=== PATIENT | male | born 1955 | race Hispanic/Latino ===

== ENCOUNTER 2018-07-15 13:23 | Inpatient (IN) | payer BC ==
[2018-07-15 13:41] VITALS: BMI 26.4
--- NOTE | 2018-07-15 13:56 | ED PDOC ---
Arrival/HPI <Omar Castro - Last Filed: 07/15/18 16:26> - General Historian: Patient - History of Present Illness Narrative History of Present Illness (Text): 07/15/18 13:49 63 y/o male, pmh including cad with cabg/ and chronic lower back pain on oxycodone, nkda, presents to the ED for evaluation of bilateral lower extremity swelling since past few days. Patient informs unchanged symptoms since onset, chronic lower back pain with no worsening pain or change in severity/characteristic, prompting him to present to the ED because of the bilateral leg swelling. Patient informs chronic lower back pain but denies any new injury or fall. Patient denies any fever, chills, nausea, vomiting, abdominal pain, chest pain, shortness of breath or any other complaints. Patient denies any recent travel. Time/Duration: < week Symptom Onset: Gradual Symptom Course: Unchanged Activities at Onset: Light Context: Home <Andreas Nobles - Last Filed: 07/15/18 18:18> - General Chief Complaint: Back Pain Time Seen by Provider: 07/15/18 13:48 Past Medical History - Provider Review Nursing Documentation Reviewed: Yes - Infectious Disease Hx of Infectious Diseases: None - Cardiac Hx Cardiac Disorders: Yes (LA x2, CABG five vessels) Hx Angina: Yes - Pulmonary Hx Respiratory Disorders: Yes (Smokes 1 1/2pack cigarettes /day) - Neurological Hx Neurological Disorder: Yes (Brain aneurysm) - HEENT Hx HEENT Disorder: Yes (deviated septum) - Renal Hx Renal Disorder: No - Endocrine/Metabolic Hx Endocrine Disorders: No - Hematological/Oncological Hx Blood Disorders: No - Integumentary Hx Dermatological Disorder: No - Musculoskeletal/Rheumatological Hx Musculoskeletal Disorders: Yes Hx Arthritis: Yes Hx Back Pain: Yes Hx Fractures: Yes (nose) - Gastrointestinal Hx Gastrointestinal Disorders: No - Genitourinary/Gynecological Hx Genitourinary Disorders: No - Psychiatric Hx Psychophysiologic Disorder: Yes (night terrors. Patient screams in his sleep.) Hx Anxiety: Yes Hx Depression: Yes Hx Substance Use: No - Surgical History Hx Open Heart Surgery: Yes (CABG) <Andreas Nobles - Last Filed: 07/15/18 18:18> Family/Social History - Physician Review Nursing Documentation Reviewed: Yes Family/Social History: No Known Family HX Smoking Status: Heavy Smoker > 10 Cigarettes Daily Hx Alcohol Use: No Hx Substance Use: No <Andreas Nobles - Last Filed: 07/15/18 18:18> Allergies/Home Meds <Omar Castro - Last Filed: 07/15/18 16:26> <Andreas Nobles - Last Filed: 07/15/18 18:18> Allergies/Adverse Reactions: Allergies No Known Allergies Allergy (Verified 07/15/18 13:41) Home Medications: Home Meds Medication Instructions Recorded Confirmed Oxycodone HCl [Oxycodone HCl ER] 1 tab PO TID 07/15/18 07/15/18 Review of Systems - Physician Review All systems were reviewed & negative as marked: Yes - Review of Systems Constitutional: absent: Fevers Eyes: absent: Vision Changes Respiratory: absent: SOB, Cough Cardiovascular: Edema (Bilateral lower extremity swelling). absent: Chest Pain Gastrointestinal: absent: Abdominal Pain, Diarrhea, Nausea, Vomiting Genitourinary Male: absent: Dysuria, Hematuria, Urinary Output Changes Musculoskeletal: Back Pain (chronic lower back pain). absent: Neck Pain Skin: absent: Rash Neurological: absent: Headache, Dizziness Endocrine: absent: Diaphoresis Psychiatric: absent: Anxiety <Andreas Nobles - Last Filed: 07/15/18 18:18> Physical Exam Vital Signs Temp Pulse Resp BP Pulse Ox 07/15/18 15:35 79 18 118/65 96 07/15/18 13:39 98.5 F 86 19 116/66 95 <Omar Castro - Last Filed: 07/15/18 16:26> Vital Signs Reviewed: Yes Vital Signs Temp Pulse Resp BP Pulse Ox 07/15/18 13:39 98.5 F 86 19 116/66 95 Temperature: Afebrile Blood Pressure: Normal Pulse: Regular Respiratory Rate: Normal Appearance: Positive for: Well-Appearing, Non-Toxic, Comfortable Pain Distress: Mild Mental Status: Positive for: Alert and Oriented X 3 - Systems Exam Head: Present: Atraumatic, Normocephalic Pupils: Present: PERRL Extroacular Muscles: Present: EOMI Conjunctiva: Present: Normal Ears: Present: NORMAL TM, Normal Canal. No: Erythema Respiratory/Chest: Present: Clear to Auscultation, Good Air Exchange. No: Respiratory Distress, Accessory Muscle Use Cardiovascular: Present: Regular Rate and Rhythm, Normal S1, S2. No: Murmurs Abdomen: No: Tenderness, Distention, Peritoneal Signs, Rebound, Guarding Genitourinary Male: Present: Circumcised Penis. No: Lesions, Penile Discharge, Testicle Tenderness Back: Present: Normal Inspection, Paraspinal Tenderness (lumbar spine). No: CVA Tenderness, Midline Tenderness, Pain with Leg Raise, Decubitus Ulcer Upper Extremity: Present: Normal Inspection. No: Cyanosis, Edema Lower Extremity: Present: Edema (3+ pitting edema bilaterally from the knee joints down. No skin discoloration.) Neurological: Present: GCS=15, CN II-XII Intact, Speech Normal, Motor Func Grossly Intact, Memory Normal Skin: Present: Warm, Dry, Normal Color. No: Rashes Psychiatric: Present: Alert, Oriented x 3, Normal Insight, Normal Concentration <Andreas Nobles Q - Last Filed: 07/15/18 18:18> Medical Decision Making - Lab Interpretations Lab Results: PT 38.8 SECONDS (9.4-12.5) H 07/15/18 15:30 INR 3.32 07/15/18 15:30 APTT 30.6 Seconds (25.1-36.5) 07/15/18 15:30 NT-Pro-B Natriuret Pep 12367 pg/mL (0-450) H 07/15/18 15:30 Total Bilirubin 2.2 mg/dL (0.2-1.3) H 07/15/18 15:30 Alkaline Phosphatase 91 U/L (38-126) 07/15/18 15:30 Total Protein 7.3 g/dL (5.8-8.3) 07/15/18 15:30 Albumin 3.9 g/dL (3.0-4.8) 07/15/18 15:30 Globulin 3.4 gm/dL 07/15/18 15:30 Albumin/Globulin Ratio 1.2 (1.1-1.8) 07/15/18 15:30 - RAD Interpretation Radiology Orders: 07/15/18 13:56 CHEST TWO VIEWS (PA/LAT) [RAD] Stat DUPLEX LOWER EXTRM VEIN BILAT [US] Stat 07/15/18 14:21 LS SPINE WITH OBL > 18 YRS OLD [RAD] Stat - Medication Orders Current Medication Orders: Furosemide (Lasix) 40 mg IVP STAT STA Stop: 07/15/18 16:25 <Omar Castro - Last Filed: 07/15/18 16:26> ED Course and Treatment: 07/15/18 13:56 Impression: 63 year old male presents to the ED for evaluation of bilateral lower extremity edema. Differential Diagnosis included but are not limited to: DVT vs. CHF vs. Organ failure Plan: -- EKG -- Labs -- Chest X-ray -- Urinalysis -- US of Lower Extremity -- Reassess and disposition 07/15/18 16:58 -EKG: NSR @ 87 BPM with LBBB and left axis deviation, no ST elevation or depression, no T wave inversion. -Chest xray: ER wet read: no active disease -LS spine: ER wet read: +DJD, No acute findings -Bilateral LE Venuous doppler: as per preliminary report, no acute DVT -Labs show no acute findings except BUN 71/creatinine 1.5/GFR 48, K+ 5.4 from 4.1 (Kayaxylate 15gm po ordered) -AST 4606 and ALT 3345 (liver failure causing pedal edema?), ammonia 22 (within normal limit). -BNP 41401 (Furosemide 40mg IV ordered) -Trop 0.13 (aspirin 325mg po, ekg confirmed with Dr. Castro show there is no STEMI but there is left axis deviation with LBBB, pt. has no chest pain or shortness of breath, recommend 0.5in nitro paste by Dr Castro since the BP is 118/65). -I called and spoke to Dr. Li, discussed about the case/labs, agreed to request Dr. Hill and Dr. Deshaun Rizo on the routine consults. - Lab Interpretations I have reviewed the lab results: Yes - RAD Interpretation Radiology Orders: Chest xray: Date of service: 07/15/2018 HISTORY: leg edema, cadiomegally? COMPARISON: 06/02/2015 TECHNIQUE: Chest PA and lateral FINDINGS: LUNGS: No active pulmonary disease. PLEURA: No significant pleural effusion identified. No pneumothorax apparent. CARDIOVASCULAR: No aortic atherosclerotic calcification present. Mild cardiomegaly no pulmonary vascular congestion. OSSEOUS STRUCTURES: Sternal wires VISUALIZED UPPER ABDOMEN: Normal. OTHER FINDINGS: None. IMPRESSION: No active disease. LS Spine: Date of service: 07/15/2018 PROCEDURE: Radiographs of the Lumbar Spine. HISTORY: chronic lower back pain COMPARISON: No prior. FINDINGS: BONES: Normal alignment. No listhesis. No fracture. DISC SPACES: There is disc degeneration and facet arthropathy at L5-S1 OTHER FINDINGS: None. IMPRESSION: No acute findings -Bilateral LE Venuous doppler: as per preliminary report, no acute DVT Teacher Dancing: Radiologist - EKG Interpretation EKG Interpretation (Text): 07/15/18 14:52 EKG: NSR @ 87 BPM with LBBB and left axis deviation, no ST elevation or depression, no T wave inversion. Interpreted by ED Physician: Yes Type: 12 lead EKG Comparison: Com.w/previous EKG <Andreas Nobles - Last Filed: 07/15/18 18:18> - PA / TRAFFIC CONTROL OPERATOR / Resident Statement FRANTZ has examined the patient and agrees with the treatment plan. <Omar Castro - Last Filed: 07/15/18 16:26> - PA / TRAFFIC CONTROL OPERATOR / Resident Statement FRANTZ has reviewed & agrees with the documentation as recorded. MD/DO has examined the patient and agrees with the treatment plan. - Scribe Statement The provider has reviewed the documentation as recorded by the Julianaibe Yenifer Rogers. All medical record entries made by the Scribe were at my direction and personally dictated by me. I have reviewed the chart and agree that the record accurately reflects my personal performance of the history, physical exam, medical decision making, and the department course for this patient. I have also personally directed, reviewed, and agree with the discharge instructions and disposition. <Andreas Nobles - Last Filed: 07/15/18 18:18> Disposition/Present on Arrival <Omar Castro - Last Filed: 07/15/18 16:26> - Present on Arrival Any Indicators Present on Arrival: No History of DVT/PE: No History of Uncontrolled Diabetes: No Urinary Catheter: No History of Decub. Ulcer: No History Surgical Site Infection Following: None - Disposition Have Diagnosis and Disposition been Completed?: Yes Disposition Time: 17:01 Patient Plan: Admission, Telemetry <Andreas Nobles - Last Filed: 07/15/18 18:18> - Disposition Diagnosis: Transaminitis, Hyperkalemia, Elevated troponin, Elevated brain natriuretic peptide (BNP) level, CHF (congestive heart failure) Disposition: HOSPITALIZED Patient Problems: Current Active Problems Problem Status Onset CHF (congestive heart failure) Acute Elevated brain natriuretic peptide (BNP) level Acute Elevated troponin Acute Hyperkalemia Acute Transaminitis Acute Condition: GUARDED
[2018-07-15 15:44] LABS: BASO # 0.01 K/mm3 (0.0-2.0); BASO % 0.1 % (0.0-3.0); GRAN # 12.81 (1.4-6.5); GRAN % 84.7 % (50.0-68.0); HEMOGLOBIN 12.4 g/dL (14.0-18.0); LYMPH # 1.2 (1.2-3.4); LYMPH % 7.6 % (22.0-35.0); MEAN CELL VOLUME 92.6 fl (80.0-105.0); MEAN CORPUSCULAR HEMOGLOBIN 29.5 pg (25.0-35.0); MEAN CORPUSCULAR HGB CONC 31.9 g/dl (31.0-37.0); MEAN PLATELET VOLUME 12.9 fl (7.0-11.0); MONO # 1.2 (0.1-0.6); MONO % 7.6 % (1.0-6.0); RBC 4.2 10^6/uL (3.5-6.1); RED CELL DISTRIBUTION WIDTH 14.8 % (11.5-14.5); WHITE BLOOD COUNT 15.1 10^3/uL (4.5-11.0)
--- NOTE | 2018-07-15 15:50 | RAD ---
Date of service: 07/15/2018 HISTORY: leg edema, cadiomegally? COMPARISON: 06/02/2015 TECHNIQUE: Chest PA and lateral FINDINGS: LUNGS: No active pulmonary disease. PLEURA: No significant pleural effusion identified. No pneumothorax apparent. CARDIOVASCULAR: No aortic atherosclerotic calcification present. Mild cardiomegaly no pulmonary vascular congestion. OSSEOUS STRUCTURES: Sternal wires VISUALIZED UPPER ABDOMEN: Normal. OTHER FINDINGS: None. IMPRESSION: No active disease.
[2018-07-15 15:51] LABS: INR 3.32; PARTIAL THROMBOPLASTIN TIME 30.6 Seconds (25.1-36.5); PROTHROMBIN TIME 38.8 SECONDS (9.4-12.5)
--- NOTE | 2018-07-15 15:51 | US ---
HISTORY: Leg pain and swelling. Evaluate for DVT PHYSICIAN(S): Lit Morrissey MD. TECHNIQUE: Duplex sonography and color-flow Doppler with graded compression were used to evaluate the deep venous systems of both lower extremities. M is limited by edema and body habitus P FINDINGS: The visualized deep venous systems of both lower extremities are sonographically normal and compressible. Normal wave forms and augmentation are seen. There is no sonographic evidence for deep venous thrombosis in the visualized segments of both lower extremities. IMPRESSION: No sonographic evidence for deep venous thrombosis in the visualized segments of both lower extremities. Limited exam.
--- NOTE | 2018-07-15 15:51 | RAD ---
Date of service: 07/15/2018 PROCEDURE: Radiographs of the Lumbar Spine. HISTORY: chronic lower back pain COMPARISON: No prior. FINDINGS: BONES: Normal alignment. No listhesis. No fracture. DISC SPACES: There is disc degeneration and facet arthropathy at L5-S1 OTHER FINDINGS: None. IMPRESSION: No acute findings
[2018-07-15 15:53] LABS: ALB/GLOB RATIO 1.2 (1.1-1.8); ALBUMIN 3.9 g/dL (3.0-4.8); CALCIUM 9.4 mg/dL (8.4-10.5)
[2018-07-15 16:32] LABS: TROPONIN I 0.13 ng/mL
[2018-07-15] MEDS ORDERED: Nitroglycerin 2% Ointment Foilpak UD TOP STA (16:56)
--- NOTE | 2018-07-15 18:26 | CARD ---
APPROVED REPORT Date of service: 07/15/2018 EKG Measurement Heart [id number] CO 198P [id number] <Conclusion> Normal sinus rhythm Left axis deviation Left bundle branch block Abnormal ECG
--- NOTE | 2018-07-15 18:26 | US ---
HISTORY: elevated LFTs COMPARISON: None available. TECHNIQUE: Sonographic evaluation of the abdomen. FINDINGS: LIVER: Appears within normal limits of size and shape. Echogenic liver may be seen in setting of hepatic parenchymal disease or fatty infiltration. No focal hepatic mass identified. The main portal vein appears patent with normal directional flow. No intrahepatic bile duct dilatation. Trace perihepatic ascites. GALLBLADDER: Gallstones. No gallbladder wall thickening. Negative sonographic Sandoval's sign as assessed by the transport aide. COMMON BILE DUCT: Measures 5 mm. PANCREAS: Not well visualized. RIGHT KIDNEY: Measures 12.4 x 4.5 x 5.5cm. No obstructing calculus or hydronephrosis identified. LEFT KIDNEY: Measures 11.5 x 5.4 x 6.4cm. No obstructing calculus or hydronephrosis identified. 5 mm nonobstructing midpole renal calculus. SPLEEN: Measures approximately 11 cm. AORTA: Limited views appear unremarkable. IVC: Limited views appear unremarkable. OTHER FINDINGS: None. IMPRESSION: 5 mm nonobstructing left midpole renal calculus. No hydronephrosis. Echogenic liver may be seen in setting of hepatic parenchymal disease or fatty infiltration. Trace perihepatic ascites. Cholelithiasis.
[2018-07-15 23:59] LABS: URINE BILIRUBIN NEGATIVE (NEGATIVE); URINE BLOOD LARGE (NEGATIVE); URINE GLUCOSE (UA) NEGATIVE (NEGATIVE); URINE LEUKOCYTE ESTERASE NEGATIVE Leu/uL (NEGATIVE); URINE PROTEIN NEGATIVE mg/dL (<30 mg/dL); URINE UROBILINOGEN 0.2 E.U./dL (<1 E.U./dL)
[2018-07-16 00:11] LABS: URINE APPEARANCE CLEAR (CLEAR); URINE COLOR YELLOW (YELLOW)
[2018-07-16 00:15] LABS: URINE AMORPHOUS SEDIMENT FEW /hpf; URINE EPITHELIAL CELLS 0 - 2 /hpf (0-5); URINE FINE GRANULAR CAST 0 - 2 /hpf; URINE HYALINE CAST 0 - 2 /hpf; URINE WBC 0 - 2 /hpf (0-6)
--- NOTE | 2018-07-16 06:44 | CP.PCM.HP ---
<Emmie Diaz - Last Filed: 07/16/18 18:46> History of Present Illness - History of Present Illness History of Present Illness: Please note patient is a poor historian and ao x 1 to self. HPI as per EMR 63 yo male PMHx CAD s/p CABG, chronic LBP on oxycodone presented to the ER 07/15 complaining of bilateral lower extremity swelling over some days. As the patient's LE swelling was progressively worsening and progressed to scrotal swelling, he decided to come to the ER. As per ER note patient was ao x 3 on initial presentation however mentation progressively worsened when patient was admitted. Overnight patient's mentation worsened and he became confused and restless requiring 1:1 sitter. This morning patient was lethargic but arousable and only oriented x 1 to self. Further history and ROS unobtainable due to patient's clinical condition PMHx: CAD s/p CABG, chronic LBP on oxycodone Meds: pls see chart ALL: NKDA SocHx: + Tob abuse, unknown EtOH/Illicits Present on Admission - Present on Admission Any Indicators Present on Admission: No Review of Systems - Review of Systems Systems not reviewed;Unavailable: Altered Mental Status Past Patient History - Infectious Disease Hx of Infectious Diseases: None - Past Social History Smoking Status: Heavy Smoker > 10 Cigarettes Daily - CARDIAC Hx Cardiac Disorders: Yes Hx Peripheral Edema: Yes - PULMONARY Hx Respiratory Disorders: No - NEUROLOGICAL Other/Comment: Brain Aneurism - HEENT Hx HEENT Problems: No - RENAL Hx Chronic Kidney Disease: No - ENDOCRINE/METABOLIC Hx Endocrine Disorders: No - HEMATOLOGICAL/ONCOLOGICAL Hx Blood Disorders: No - INTEGUMENTARY Other/Comment: rt foot lesion - MUSCULOSKELETAL/RHEUMATOLOGICAL Hx Falls: No - GASTROINTESTINAL Hx Gastrointestinal Disorders: No - GENITOURINARY/GYNECOLOGICAL Hx Genitourinary Disorders: No - PSYCHIATRIC Hx Substance Use: No - SURGICAL HISTORY Hx Cardiac Catheterization: Yes Meds Allergies/Adverse Reactions: Allergies Allergy/AdvReac Type Severity Reaction Status Date / Time No Known Allergies Allergy Verified 07/15/18 13:41 Physical Exam - Constitutional Appears: No Acute Distress, Unkempt, Older Than Stated Age, Confused, Chronically Ill - Head Exam Head Exam: ATRAUMATIC, NORMAL INSPECTION, NORMOCEPHALIC - Eye Exam Eye Exam: absent: Conjunctival injection, Scleral icterus - ENT Exam ENT Exam: Mucous Membranes Dry - Respiratory Exam Respiratory Exam: NORMAL BREATHING PATTERN. absent: Accessory Muscle Use, Rales, Rhonchi, Wheezes, Respiratory Distress - Cardiovascular Exam Cardiovascular Exam: +S1, +S2. absent: Bradycardia, Tachycardia - GI/Abdominal Exam GI & Abdominal Exam: Normal Bowel Sounds, Soft. absent: Distended, Firm, Organomegaly, Rigid, Tenderness - Rectal Exam Rectal Exam: Deferred - Exam Exam: Scrotal Swelling - Extremities Exam Extremities exam: Positive for: pedal edema (+3 b/l pitting with ) - Neurological Exam Neurological exam: Altered - Psychiatric Exam Additional comments: confused - Skin Additional comments: +icteric Results - Vital Signs Recent Vital Signs: Last Vital Signs Temp 98.5 F 07/15/18 13:39 Pulse 86 07/16/18 02:00 Resp 16 07/16/18 00:26 BP 127/63 07/16/18 00:00 Pulse Ox 99 07/16/18 00:00 - Labs Result Diagrams: 07/16/18 09:10 07/16/18 09:10 Labs: Laboratory Results - last 24 hr 07/15/18 07/15/18 07/15/18 15:30 15:30 15:30 WBC 15.1 H RBC 4.20 Hgb 12.4 L Hct 38.9 L MCV 92.6 MCH 29.5 MCHC 31.9 RDW 14.8 H Plt Count 102 L MPV 12.9 H Gran % 84.7 H Lymph % (Auto) 7.6 L Warren % (Auto) 7.6 H Eos % (Auto) 0.0 L Baso % (Auto) 0.1 Gran # 12.81 H Lymph # (Auto) 1.2 Warren # (Auto) 1.2 H Eos # (Auto) 0.0 Baso # (Auto) 0.01 PT 38.8 H INR 3.32 APTT 30.6 Sodium 137 Potassium 5.4 H Chloride 105 Carbon Dioxide 20 L Anion Gap 18 BUN 71 H Creatinine 1.5 Est GFR ( Amer) 58 Est GFR (Non-Af Amer) 48 Random Glucose 85 Calcium 9.4 Magnesium 2.7 H Total Bilirubin 2.2 H AST 4606 H ALT 3345 H Alkaline Phosphatase 91 Ammonia Troponin I 0.13 H* D NT-Pro-B Natriuret Pep 05400 H Total Protein 7.3 Albumin 3.9 Globulin 3.4 Albumin/Globulin Ratio 1.2 Urine Color Urine Appearance Urine pH Ur Specific [place] Urine Protein Urine Glucose (UA) Urine Ketones Urine Blood Urine Nitrate Urine Bilirubin Urine Urobilinogen Ur Leukocyte Esterase Urine RBC Urine WBC Ur Epithelial Cells Amorphous Sediment Urine Bacteria Hyaline Casts Fine Granular Casts 07/15/18 07/15/18 17:42 23:30 WBC RBC Hgb Hct MCV MCH MCHC RDW Plt Count MPV Gran % Lymph % (Auto) [place] % (Auto) Eos % (Auto) Baso % (Auto) Gran # Lymph # (Auto) Warren # (Auto) Eos # (Auto) Baso # (Auto) PT INR APTT Sodium Potassium Chloride Carbon Dioxide Anion Gap BUN Creatinine Est GFR ( Amer) Est GFR (Non-Af Amer) Random Glucose Calcium Magnesium Total Bilirubin AST ALT Alkaline Phosphatase Ammonia 22 Troponin I NT-Pro-B Natriuret Pep Total Protein Albumin Globulin Albumin/Globulin Ratio Urine Color Yellow Urine Appearance Clear Urine pH 6.0 Ur Specific [place] 1.025 Urine Protein Negative Urine Glucose (UA) Negative Urine Ketones Negative Urine Blood Large H Urine Nitrate Negative Urine Bilirubin Negative Urine Urobilinogen 0.2 Ur Leukocyte Esterase Negative Urine RBC 1 - 3 H Urine WBC 0 - 2 Ur Epithelial Cells 0 - 2 Amorphous Sediment Few Urine Bacteria None Hyaline Casts 0 - 2 Fine Granular Casts 0 - 2 Assessment & Plan - Assessment and Plan (Free Text) Assessment: 1. Altered mental status 2. Acute liver failure 3. Elevated troponin 4. Bilateral lower extremity edema 5. Coagulopathy of unknown etiology 6. Encephalopathy 7. Acute Kidney Injury 8. Electrolyte abnormalities 9. Leukocytosis 10. Elevated INR not on anticoag 11. CAD s/p CABG 12. Tobacco use disorder Plan: Patient's vitals, blood work, and imaging noted. Patient admitted to [facility] for further management. Altered mentation of unknown etiology. Patient's head CT was unremarkable for acute findings with minimal diffuse cerebral atrophy. In light of acute liver failure with AST/ALT 4606/3345 on presentation, encephalopathy high suspicion for altered mentation. Patient started on lactulose as per GI. Patient's acute liver failure unknown etiology at this time. GI consulted and has pending work up for infectious, viral, drug induced, autoimmune. MELD-Na 28points estimating 27-32% 90day mortality. Abdominal u/s and CT Abdomen/pelvis reviewed. Abdominal u/s with duplex revealed patent portal vein with hepatopetal flow. Patient started on NAC [3 consecutive doses as per protocol] with serial blood work q12 hours to monitor patient response. Patient's elevated troponin 0.[address] changes on admission- trended down on repeat this AM 0.10. Cardiology consulted- will f/u reccs. Patient on ASA 81mg and Lopressor 25mg bid at this time. Echo ordered- will f/u. Patient's b/l LE u/s negative for DVT. Lasix 40 ivp bid ordered for b/l LE edema. Patient's BRANDEN noted- will monitor closely with blood work and urine output. Patient's electrolyte abnormalities noted; patient was given calcium gluconate for hyperkalemia. Patient leukocytosis noted. Patient afebrile; monitor off abx and f/u procalcitonin. As per chart patient has extensive smoking history; on Nicoderm patch qd. At this time as per GI patient pending transfer to [facility] Hepatology [facility]. Will m onitor patient closely at this time. Discussed with Dr. Po Diaz PGY3 <Antonio Fontenot S - Last Filed: 07/16/18 20:25> Results - Vital Signs Recent Vital Signs: Last Vital Signs Temp 97.6 F 07/16/18 12:00 Pulse 76 07/16/18 17:57 Resp 17 07/16/18 12:00 BP 106/72 07/16/18 17:57 Pulse Ox 98 07/16/18 08:00 - Labs Result Diagrams: 07/16/18 09:10 07/16/18 09:10 Labs: Laboratory Results - last 24 hr 07/15/18 07/16/18 07/16/18 23:30 06:50 06:50 WBC RBC Hgb Hct MCV MCH MCHC RDW Plt Count MPV PT INR Sodium Potassium Chloride Carbon Dioxide Anion Gap BUN Creatinine Est GFR ( Amer) Est GFR (Non-Af Amer) Random Glucose Lactic Acid Calcium Phosphorus Magnesium Iron TIBC % Saturation Ferritin Total Bilirubin Direct Bilirubin AST ALT Alkaline Phosphatase Ammonia Lactate Dehydrogenase Troponin I Total Protein Albumin Globulin Albumin/Globulin Ratio Alpha Fetoprotein 1.4 Procalcitonin Urine Color Yellow Urine Appearance Clear Urine pH 6.0 Ur Specific [place] 1.025 Urine Protein Negative Urine Glucose (UA) Negative Urine Ketones Negative Urine Blood Large H Urine Nitrate Negative Urine Bilirubin Negative Urine Urobilinogen 0.2 Ur Leukocyte Esterase Negative Urine RBC 1 - 3 H Urine WBC 0 - 2 Ur Epithelial Cells 0 - 2 Amorphous Sediment Few Urine Bacteria None Hyaline Casts 0 - 2 Fine Granular Casts 0 - 2 Salicylates Acetaminophen Alcohol, Quantitative Hepatitis A IgM Ab Negative Hep Bs Antigen Negative Hep B Core IgM Ab Hepatitis C Antibody Negative 07/16/18 07/16/18 07/16/18 09:10 09:10 09:10 WBC 10.5 D RBC 4.32 Hgb 12.8 L Hct 39.3 L MCV 91.0 MCH 29.6 MCHC 32.6 RDW 14.7 H Plt Count 78 L MPV 12.7 H PT 33.4 H INR 2.84 Sodium Potassium Chloride Carbon Dioxide Anion Gap BUN Creatinine Est GFR ( Amer) Est GFR (Non-Af Amer) Random Glucose Lactic Acid Calcium Phosphorus Magnesium Iron TIBC % Saturation Ferritin Total Bilirubin Direct Bilirubin AST ALT Alkaline Phosphatase Ammonia 11 Lactate Dehydrogenase Troponin I Total Protein Albumin Globulin Albumin/Globulin Ratio Alpha Fetoprotein Procalcitonin Urine Color Urine Appearance Urine pH Ur Specific [place] Urine Protein Urine Glucose (UA) Urine Ketones Urine Blood Urine Nitrate Urine Bilirubin Urine Urobilinogen Ur Leukocyte Esterase Urine RBC Urine WBC Ur Epithelial Cells Amorphous Sediment Urine Bacteria Hyaline Casts Fine Granular Casts Salicylates Acetaminophen Alcohol, Quantitative Hepatitis A IgM Ab Hep Bs Antigen Hep B Core IgM Ab Hepatitis C Antibody 07/16/18 07/16/18 07/16/18 09:10 09:10 09:10 WBC RBC Hgb Hct MCV MCH MCHC RDW Plt Count MPV PT INR Sodium 138 Potassium 3.9 Chloride 104 Carbon Dioxide 27 Anion Gap 10 BUN 61 H Creatinine 1.0 Est GFR ( Amer) > 60 Est GFR (Non-Af Amer) > 60 Random Glucose 103 Lactic Acid Calcium 9.1 Phosphorus 2.6 Magnesium 2.5 H Iron TIBC % Saturation Ferritin Total Bilirubin 2.3 H Direct Bilirubin 1.4 H AST 2377 H ALT 2773 H Alkaline Phosphatase 97 Ammonia Lactate Dehydrogenase 4152 H Troponin I 0.10 D Total Protein 7.0 Albumin 3.7 Globulin 3.3 Albumin/Globulin Ratio 1.1 Alpha Fetoprotein Procalcitonin Urine Color Urine Appearance Urine pH Ur Specific [place] Urine Protein Urine Glucose (UA) Urine Ketones Urine Blood Urine Nitrate Urine Bilirubin Urine Urobilinogen Ur Leukocyte Esterase Urine RBC Urine WBC Ur Epithelial Cells Amorphous Sediment Urine Bacteria Hyaline Casts Fine Granular Casts Salicylates 1 L Acetaminophen < 10.0 L Alcohol, Quantitative < 10 Hepatitis A IgM Ab Hep Bs Antigen Hep B Core IgM Ab Hepatitis C Antibody 07/16/18 07/16/18 07/16/18 09:10 09:10 10:40 WBC RBC Hgb Hct MCV MCH MCHC RDW Plt Count MPV PT INR Sodium Potassium Chloride Carbon Dioxide Anion Gap BUN Creatinine Est GFR ( Amer) Est GFR (Non-Af Amer) Random Glucose Lactic Acid Calcium Phosphorus Magnesium Iron 29 L TIBC 361 % Saturation 8 L Ferritin Total Bilirubin Direct Bilirubin AST ALT Alkaline Phosphatase Ammonia Lactate Dehydrogenase Troponin I Total Protein Albumin Globulin Albumin/Globulin Ratio Alpha Fetoprotein Procalcitonin 0.54 H Urine Color Urine Appearance Urine pH Ur Specific [place] Urine Protein Urine Glucose (UA) Urine Ketones Urine Blood Urine Nitrate Urine Bilirubin Urine Urobilinogen Ur Leukocyte Esterase Urine RBC Urine WBC Ur Epithelial Cells Amorphous Sediment Urine Bacteria Hyaline Casts Fine Granular Casts Salicylates Acetaminophen Alcohol, Quantitative Hepatitis A IgM Ab Negative Hep Bs Antigen Negative Hep B Core IgM Ab Negative Hepatitis C Antibody Negative 07/16/18 07/16/18 10:40 16:17 WBC RBC Hgb Hct MCV MCH MCHC RDW Plt Count MPV PT INR Sodium Potassium Chloride Carbon Dioxide Anion Gap BUN Creatinine Est GFR ( Amer) Est GFR (Non-Af Amer) Random Glucose Lactic Acid 1.6 Calcium Phosphorus Magnesium Iron TIBC % Saturation Ferritin 306.0 Total Bilirubin Direct Bilirubin AST ALT Alkaline Phosphatase Ammonia Lactate Dehydrogenase Troponin I Total Protein Albumin Globulin Albumin/Globulin Ratio Alpha Fetoprotein Procalcitonin Urine Color Urine Appearance Urine pH Ur Specific [place] Urine Protein Urine Glucose (UA) Urine Ketones Urine Blood Urine Nitrate Urine Bilirubin Urine Urobilinogen Ur Leukocyte Esterase Urine RBC Urine WBC Ur Epithelial Cells Amorphous Sediment Urine Bacteria Hyaline Casts Fine Granular Casts Salicylates Acetaminophen Alcohol, Quantitative Hepatitis A IgM Ab Hep Bs Antigen Hep B Core IgM Ab Hepatitis C Antibody Assessment & Plan - Assessment and Plan (Free Text) Plan: Pt seen and examined by me. I have reviewed the note of the director medical surgical and I agree with it. I have discussed the assessment and plan with the resident. I have reviewed the medications and the last labs. Pt with acute liver failure- severe. It is of unknown etiology. GI consulted and I reviewed their note. Pt has a high MELD score. Pt is on tele. CT of the chest/abd/pelvis reviewed. Elevated trop. LE edema and has been placed on IV lasix. Pt not able to give much of a history and will need to discuses with family. Pt did not remember place or person. He did not remember where he lived and if he was . He has BRANDEN. He may have heart failure and will get echo and cardiology consult. Pt will be placed on ASA and Lopressor. US of the portal vein has been reviewed. He will be placed on lactulose for possible hepatic encephalopathy. Would be concerned about cirrhosis as he also has thrombocytopenia. Hepatorenal syndrome is a possbility as well. He remains critically ill. Possible transfer to [facility].
--- NOTE | 2018-07-16 08:27 | CT ---
Date of service: 07/15/2018 PROCEDURE: CT Chest, Abdomen and Pelvis without intravenous contrast HISTORY: elevated liver enzymes COMPARISON: Abdomen ultrasound 07/15/2018. Chest radiograph 07/15/2018 as well. TECHNIQUE: Helical CT of the chest, abdomen and pelvis was performed without the benefit oral or intravenous contrast as per referring physician request. Reformatted dataset have been provided as well. Radiation dose: Total exam DLP = 854.92 mGy-cm. This CT exam was performed using one or more of the following dose reduction techniques: Automated exposure control, adjustment of the mA and/or kV according to patient size, and/or use of iterative reconstruction technique. FINDINGS: CT CHEST WITHOUT CONTRAST: LUNGS: Trace emphysematous change identified in the bilateral pulmonary apices with ground-glass opacity at scattered in the periphery of the left upper and lower lobes and minimally at the medial right upper lobe and finally at the right lower lobe as well reflecting trace interstitial pulmonary disease. No consolidation. There are a few scattered pulmonary nodules identified bilaterally. Right lung: Image 55 series 3, 2 mm nodule or varix right upper lobe lateral periphery, noncalcified. Image 72, noncalcified parenchymal or pleural nodule 2.5 mm. Left lung: Image 34, 3 noncalcified nodules with the 2 anterior measuring approximately 3 mm and the more posterior measuring 4 mm, all noncalcified at left upper lobe. Image 77, 3.5 mm noncalcified nodule left lower lobe periphery. MEDIASTINUM: Normal caliber aorta and pulmonary arterial trunk. Cardiomegaly. Post CABG changes. LYMPH NODES: Unremarkable. PLEURA: Unremarkable. No pneumothorax. No pleural fluid. BONES: Median sternotomy. OTHER FINDINGS: None. CT ABDOMEN AND PELVIS: LIVER: Trace perihepatic ascites. No gross lesion or ductal dilatation. GALLBLADDER AND BILE DUCTS: Unremarkable. PANCREAS: Unremarkable. No gross lesion or ductal dilatation. SPLEEN: Unremarkable. ADRENALS: Unremarkable. No mass. KIDNEYS AND URETERS: Punctate intrarenal calculus is identified at the midpole left kidney. No right-sided radiodense urolithiasis. No hydronephrosis. No gross solid mass. VASCULATURE: No aortic atherosclerotic calcification or mural plaque present. Unremarkable. No aortic aneurysm. BOWEL: Moderate fecal loading seen throughout the colon. No obstruction. No gross mural thickening. APPENDIX: Normal appendix. PERITONEUM: Trace pelvic ascites. Mild anasarca pattern. No free intra peritoneal gas collection. LYMPH NODES: Unremarkable. No enlarged lymph nodes. BLADDER: Unremarkable. REPRODUCTIVE: Large bilateral hydroceles identified. BONES: Gross spondylolisthesis L5-S1 L5 slightly anterior to S1 by less than 1 cm. This appears to be due to both spondylolysis at the left and bilateral gross facet joint degenerative arthropathy. No right spondylolysis at this level. OTHER FINDINGS: None. IMPRESSION: 1. Trace COPD. Few scattered pulmonary nodules identified bilaterally with the largest identified at the left upper lobe 4 mm greatest dimension, noncalcified. No significant lymphadenopathy. Follow-up CT recommended. 2. No consolidation, significant lymphadenopathy, pleural or pericardial effusion. 3. Cardiomegaly. Post CABG changes. 4. Punctate intrarenal calculus midpole left kidney 2 mm greatest dimension at the most. No obstructive uropathy bilaterally. 5. Trace perihepatic and pelvic ascites, etiology indeterminate. Anasarca. 6. Bilateral hydroceles incidentally noted. 7. Grade 1 spondylolisthesis L5-S1 on the basis of both spondylolysis at the left pars interarticularis and gross facet joint arthropathy bilaterally. Preliminary report provided by Kevin, 03/15/2019, 9:14 p.m..
[2018-07-16 09:31] LABS: ACETAMINOPHEN < 10.0 ug/ml (10.0-20.0); ALB/GLOB RATIO 1.1 (1.1-1.8); ALBUMIN 3.7 g/dL (3.0-4.8); BILIRUBIN,DIRECT 1.4 mg/dL (0.0-0.4); BLOOD UREA NITROGEN 61 mg/dL (7-21); CALCIUM 9.1 mg/dL (8.4-10.5); GFR NON-AFRICAN AMERICAN > 60; SALICYLATE 1 mg/dL (2.0-20.0)
[2018-07-16] MEDS ORDERED: WATER IVPB ONE (09:33)
[2018-07-16] MEDS ORDERED: ACETYLCYSTEINE IVPB ONE (09:33)
[2018-07-16] MEDS ORDERED: DEXTROSE 5% IVPB ONE (09:33)
[2018-07-16 09:36] LABS: HEMOGLOBIN 12.8 g/dL (14.0-18.0); MEAN CORPUSCULAR HEMOGLOBIN 29.6 pg (25.0-35.0); MEAN CORPUSCULAR HGB CONC 32.6 g/dl (31.0-37.0); MEAN PLATELET VOLUME 12.7 fl (7.0-11.0); RBC 4.32 10^6/uL (3.5-6.1); RED CELL DISTRIBUTION WIDTH 14.7 % (11.5-14.5); WHITE BLOOD COUNT 10.5 10^3/uL (4.5-11.0)
[2018-07-16 09:37] LABS: INR 2.84; PROTHROMBIN TIME 33.4 SECONDS (9.4-12.5)
--- NOTE | 2018-07-16 09:57 | CT ---
Date of service: 07/16/2018 PROCEDURE: CT HEAD WITHOUT CONTRAST. HISTORY: ams COMPARISON: None available. TECHNIQUE: Axial computed tomography images were obtained through the head/brain without intravenous contrast. Radiation dose: Total exam DLP = 1002.54 mGy-cm. This CT exam was performed using one or more of the following dose reduction techniques: Automated exposure control, adjustment of the mA and/or kV according to patient size, and/or use of iterative reconstruction technique. FINDINGS: HEMORRHAGE: No intracranial hemorrhage. BRAIN: The webster-white matter differentiation is well preserved. There is no mass effect or definitive edema pattern appreciated including the cortex. There is limited proportional expansion of the ventriculosulcal and cisternal spaces however in a pattern most compatible with diffuse cerebral atrophy. No suspicious extra-axial fluid collection is identified in the midline brain anatomy appears grossly nonfocal as imaged. VENTRICLES: Unremarkable. No hydrocephalus. CALVARIUM: Unremarkable. PARANASAL SINUSES: Incidental limited sinus disease bilateral maxillary sinuses and left sphenoid sinus. MASTOID AIR CELLS: Unremarkable as visualized. No inflammatory changes. OTHER FINDINGS: None. IMPRESSION: Minimal diffuse cerebral atrophy is identified with the examination otherwise unremarkable appearing.
[2018-07-16] MEDS ORDERED: Lactulose 10 gm/15 ml (Rectal Use) PR SCH (10:00)
[2018-07-16 10:24] LABS: ALT/SGPT 2773 U/L (7-56); AST/SGOT 2377 U/L (17-59)
--- NOTE | 2018-07-16 10:57 | CP.PCM.CON ---
<Andre Torres - Last Filed: 07/16/18 11:09> History of Present Illness - History of Present Illness History of Present Illness: PGY-4 GI Fellow Consult Note The following mostly obtained from chart review and hospital staff as patient unable to provide history Pt is a 63 yo WM with CAD s/p CABG, chronic low back pain (on oxycodone, no APAP) presenting with worsening lower extremity edema. Symptoms progressed over the last several days to week in bilateral legs to the point of scrotal swelling prompting him to present for evaluation. In the ED patient was reportedly conversive and not altered. Lab workup reveal AST and ALT of ~4600 and 3300, respectively; AP 91 and Tot Bili 2.2; INR 3.32; therefore, GI consult placed. Over night, patient became more confused with unsafe ambulation requiring sitter and medication for restlessness. During my encounter this AM, patient awoke to voice stimulation but was unable to stated name, location nor date. Unable to obtain ROS due to clinical condition MHx and SurgHx: See above Meds: Oxycodone FamHx: Denied GI/Liver problems SocHx: + Tob abuse, unknown EtOH/Illicits All: NKDA Past Patient History - Infectious Disease Hx of Infectious Diseases: None - Past Social History Smoking Status: Heavy Smoker > 10 Cigarettes Daily - CARDIAC Hx Cardiac Disorders: Yes Hx Peripheral Edema: Yes - PULMONARY Hx Respiratory Disorders: No - NEUROLOGICAL Other/Comment: Brain Aneurism - HEENT Hx HEENT Problems: No - RENAL Hx Chronic Kidney Disease: No - ENDOCRINE/METABOLIC Hx Endocrine Disorders: No - HEMATOLOGICAL/ONCOLOGICAL Hx Blood Disorders: No - INTEGUMENTARY Other/Comment: rt foot lesion - MUSCULOSKELETAL/RHEUMATOLOGICAL Hx Falls: No - GASTROINTESTINAL Hx Gastrointestinal Disorders: No - GENITOURINARY/GYNECOLOGICAL Hx Genitourinary Disorders: No - PSYCHIATRIC Hx Substance Use: No - SURGICAL HISTORY Hx Cardiac Catheterization: Yes Meds Allergies/Adverse Reactions: Allergies Allergy/AdvReac Type Severity Reaction Status Date / Time No Known Allergies Allergy Verified 07/15/18 13:41 - Medications Medications: Current Medications Aspirin (Aspirin Chewable) 81 mg PO DAILY [facility] Last Admin: 07/16/18 09:58 Dose: 81 mg Furosemide (Lasix) 40 mg IVP Q12 [facility] Last Admin: 07/16/18 09:59 Dose: 40 mg Acetylcysteine 13,430 mg/ (Dextrose) 267.15 mls @ 200 mls/hr IVPB ONCE ONE Stop: 07/16/18 10:53 Last Admin: 07/16/18 10:28 Dose: 200 mls/hr Lactulose (Enulose) 30 gm PO TID [facility] Last Admin: 07/16/18 10:10 Dose: 30 gm Metoprolol Tartrate (Lopressor) 25 mg PO BID [facility] Last Admin: 07/16/18 09:58 Dose: 25 mg Nicotine (Nicoderm Cq) 1 patch TD DAILY [facility] Last Admin: 07/16/18 10:00 Dose: 1 patch Physical Exam - Constitutional Appears: No Acute Distress, Confused - Head Exam Head Exam: ATRAUMATIC, NORMAL INSPECTION - Eye Exam Eye Exam: EOMI. absent: Scleral icterus - ENT Exam ENT Exam: Mucous Membranes Dry. absent: Mucous Membranes Moist - Respiratory Exam Respiratory Exam: NORMAL BREATHING PATTERN. absent: Accessory Muscle Use, Res piratory Distress - Cardiovascular Exam Cardiovascular Exam: REGULAR RHYTHM, RRR, Systolic Murmur - GI/Abdominal Exam GI & Abdominal Exam: Normal Bowel Sounds, Soft. absent: Bruit, Diminished Bowel Sounds, Distended, Firm, Guarding, Hernia, Mass, Organomegaly, Pulsatile Mass, Rebound, Rigid, Tenderness - Rectal Exam Rectal Exam: Deferred - Extremities Exam Extremities exam: Positive for: pedal edema (+3 bilateral pitting edema in LEs with scrotal swelling) - Neurological Exam Neurological exam: Alert Additional comments: O x 0, mild asterixis but cooperation limited - Skin Skin Exam: Dry, Warm Results - Vital Signs Recent Vital Signs: Last Vital Signs Temp 97.6 F 07/16/18 04:00 Pulse 89 07/16/18 09:58 Resp 16 07/16/18 04:00 BP 125/67 07/16/18 09:59 Pulse Ox 98 07/16/18 04:00 - Labs Result Diagrams: 07/16/18 09:10 07/16/18 09:10 Labs: Laboratory Results - last 24 hr 07/15/18 07/15/18 07/15/18 15:30 15:30 15:30 WBC 15.1 H RBC 4.20 Hgb 12.4 L Hct 38.9 L MCV 92.6 MCH 29.5 MCHC 31.9 RDW 14.8 H Plt Count 102 L MPV 12.9 H Gran % 84.7 H Lymph % (Auto) 7.6 L Gonzales % (Auto) 7.6 H Eos % (Auto) 0.0 L Baso % (Auto) 0.1 Gran # 12.81 H Lymph # (Auto) 1.2 Gonzales # (Auto) 1.2 H Eos # (Auto) 0.0 Baso # (Auto) 0.01 PT 38.8 H INR 3.32 APTT 30.6 Sodium 137 Potassium 5.4 H Chloride 105 Carbon Dioxide 20 L Anion Gap 18 BUN 71 H Creatinine 1.5 Est GFR ( Amer) 58 Est GFR (Non-Af Amer) 48 Random Glucose 85 Calcium 9.4 Phosphorus Magnesium 2.7 H Total Bilirubin 2.2 H Direct Bilirubin AST 4606 H ALT 3345 H Alkaline Phosphatase 91 Ammonia Lactate Dehydrogenase Troponin I 0.13 H* D NT-Pro-B Natriuret Pep 49498 H Total Protein 7.3 Albumin 3.9 Globulin 3.4 Albumin/Globulin Ratio 1.2 Urine Color Urine Appearance Urine pH Ur Specific Dexter Urine Protein Urine Glucose (UA) Urine Ketones Urine Blood Urine Nitrate Urine Bilirubin Urine Urobilinogen Ur Leukocyte Esterase Urine RBC Urine WBC Ur Epithelial Cells Amorphous Sediment Urine Bacteria Hyaline Casts Fine Granular Casts Salicylates Acetaminophen Alcohol, Quantitative 07/15/18 07/15/18 07/16/18 17:42 23:30 09:10 WBC RBC Hgb Hct MCV MCH MCHC RDW Plt Count MPV Gran % Lymph % (Auto) Gonzales % (Auto) Eos % (Auto) Baso % (Auto) Gran # Lymph # (Auto) Gonzales # (Auto) Eos # (Auto) Baso # (Auto) PT INR APTT Sodium Potassium Chloride Carbon Dioxide Anion Gap BUN Creatinine Est GFR ( Amer) Est GFR (Non-Af Amer) Random Glucose Calcium Phosphorus Magnesium Total Bilirubin Direct Bilirubin AST ALT Alkaline Phosphatase Ammonia 22 11 Lactate Dehydrogenase Troponin I NT-Pro-B Natriuret Pep Total Protein Albumin Globulin Albumin/Globulin Ratio Urine Color Yellow Urine Appearance Clear Urine pH 6.0 Ur Specific Dexter 1.025 Urine Protein Negative Urine Glucose (UA) Negative Urine Ketones Negative Urine Blood Large H Urine Nitrate Negative Urine Bilirubin Negative Urine Urobilinogen 0.2 Ur Leukocyte Esterase Negative Urine RBC 1 - 3 H Urine WBC 0 - 2 Ur Epithelial Cells 0 - 2 Amorphous Sediment Few Urine Bacteria None Hyaline Casts 0 - 2 Fine Granular Casts 0 - 2 Salicylates Acetaminophen Alcohol, Quantitative 07/16/18 07/16/18 07/16/18 09:10 09:10 09:10 WBC 10.5 D RBC 4.32 Hgb 12.8 L Hct 39.3 L MCV 91.0 MCH 29.6 MCHC 32.6 RDW 14.7 H Plt Count 78 L MPV 12.7 H Gran % Lymph % (Auto) Gonzales % (Auto) Eos % (Auto) Baso % (Auto) Gran # Lymph # (Auto) Gonzales # (Auto) Eos # (Auto) Baso # (Auto) PT 33.4 H INR 2.84 APTT Sodium 138 Potassium 3.9 Chloride 104 Carbon Dioxide 27 Anion Gap 10 BUN 61 H Creatinine 1.0 Est GFR ( Amer) > 60 Est GFR (Non-Af Amer) > 60 Random Glucose 103 Calcium 9.1 Phosphorus 2.6 Magnesium 2.5 H Total Bilirubin 2.3 H Direct Bilirubin 1.4 H AST 2377 H ALT 2773 H Alkaline Phosphatase 97 Ammonia Lactate Dehydrogenase 4152 H Troponin I 0.10 D NT-Pro-B Natriuret Pep Total Protein 7.0 Albumin 3.7 Globulin 3.3 Albumin/Globulin Ratio 1.1 Urine Color Urine Appearance Urine pH Ur Specific Dexter Urine Protein Urine Glucose (UA) Urine Ketones Urine Blood Urine Nitrate Urine Bilirubin Urine Urobilinogen Ur Leukocyte Esterase Urine RBC Urine WBC Ur Epithelial Cells Amorphous Sediment Urine Bacteria Hyaline Casts Fine Granular Casts Salicylates Acetaminophen Alcohol, Quantitative 07/16/18 07/16/18 09:10 09:10 WBC RBC Hgb Hct MCV MCH MCHC RDW Plt Count MPV Gran % Lymph % (Auto) Gonzales % (Auto) Eos % (Auto) Baso % (Auto) Gran # Lymph # (Auto) Gonzales # (Auto) Eos # (Auto) Baso # (Auto) PT INR APTT Sodium Potassium Chloride Carbon Dioxide Anion Gap BUN Creatinine Est GFR ( Amer) Est GFR (Non-Af Amer) Random Glucose Calcium Phosphorus Magnesium Total Bilirubin Direct Bilirubin AST ALT Alkaline Phosphatase Ammonia Lactate Dehydrogenase Troponin I NT-Pro-B Natriuret Pep Total Protein Albumin Globulin Albumin/Globulin Ratio Urine Color Urine Appearance Urine pH Ur Specific Dexter Urine Protein Urine Glucose (UA) Urine Ketones Urine Blood Urine Nitrate Urine Bilirubin Urine Urobilinogen Ur Leukocyte Esterase Urine RBC Urine WBC Ur Epithelial Cells Amorphous Sediment Urine Bacteria Hyaline Casts Fine Granular Casts Salicylates 1 L Acetaminophen < 10.0 L Alcohol, Quantitative < 10 Assessment & Plan - Assessment and Plan (Free Text) Assessment: 63 yo WF with CAD s/p CABG and chronic low back pain presenting with worsening LE edema, found to have abnormal liver tests and elevated INR. # Acute Liver Failure: Diagnostic criteria met of Encephalopathy and INR > 1.5 in absence of prior liver disease. Unclear etiology at this point with main differential of acute viral hepatitis, ischemia, drugs or acetaminophen induced. Pt reportedly on oxycodone alone without acetaminophen. Given h/o CAD, ischemia possible but BP not low here and does not seem like acute [place]. Unknown if risk factors for acute viral hep. Echogenic liver on Abd US, CT (without contrast) without explanation of clinical presentation. # Acute Severe Hepatitis: AST and ALT > 1 k with mildly elevated bili and normal AP. Plan: - Start NAC - Working on transfer to [facility] Hepatology service - Check Abd Duplex and Echo - Cardiology consult - Viral Hep Serologies: Hep A IgM, Hep B Surf Ag, Anti-Hep B Core IgM, HCV Ab, HCV RNA, HSV Ab, VZV Ab - TATIANA, ASMA, Anti LK Ab, AMA, IgG4, HIV, Fe studies - Lactulose PO since alert (with assistance); can switch to rectal if not able to take PO Pt seen and examined with Dr. Rizo; please see attestation for further recs/changes. <Deshaun Rizo V - Last Filed: 07/16/18 23:14> Meds - Medications Medications: Current Medications Aspirin (Aspirin Chewable) 81 mg PO DAILY [facility] Last Admin: 07/16/18 09:58 Dose: 81 mg Furosemide (Lasix) 40 mg IVP Q12 [facility] Last Admin: 07/16/18 21:33 Dose: 40 mg Acetylcysteine 8,954 mg/ (Dextrose) 1,044.77 mls @ 62.5 mls/hr IV .[id number] ONE Stop: 07/17/18 09:13 Last Admin: 07/16/18 18:34 Dose: 62.5 mls/hr Potassium Chloride (Potassium Chloride 10 Meq/100 Ml) 10 meq in 100 mls @ 50 mls/hr IVPB ONCE ONE Stop: 07/17/18 00:38 Last Admin: 07/16/18 22:44 Dose: 50 mls/hr Lactulose (Enulose) 30 gm PO TID [facility] Last Admin: 07/16/18 17:56 Dose: 30 gm Metoprolol Tartrate (Lopressor) 25 mg PO BID [facility] Last Admin: 07/16/18 09:58 Dose: 25 mg Nicotine (Nicoderm Cq) 1 patch TD DAILY [facility] Last Admin: 07/16/18 10:00 Dose: 1 patch Results - Vital Signs Recent Vital Signs: Last Vital Signs Temp 97.6 F 07/16/18 12:00 Pulse 76 07/16/18 17:57 Resp 17 07/16/18 12:00 BP 103/60 07/16/18 21:33 Pulse Ox 98 07/16/18 08:00 - Labs Result Diagrams: 07/16/18 21:50 07/16/18 21:50 Labs: Laboratory Results - last 24 hr 07/15/18 07/16/18 07/16/18 23:30 06:50 06:50 WBC RBC Hgb Hct MCV MCH MCHC RDW Plt Count MPV PT INR APTT Sodium Potassium Chloride Carbon Dioxide Anion Gap BUN Creatinine Est GFR ( Amer) Est GFR (Non-Af Amer) Random Glucose Lactic Acid Calcium Phosphorus Magnesium Iron TIBC % Saturation Ferritin Total Bilirubin Direct Bilirubin AST ALT Alkaline Phosphatase Ammonia Lactate Dehydrogenase Troponin I Total Protein Albumin Globulin Albumin/Globulin Ratio Alpha Fetoprotein 1.4 Procalcitonin Urine Color Yellow Urine Appearance Clear Urine pH 6.0 Ur Specific Dexter 1.025 Urine Protein Negative Urine Glucose (UA) Negative Urine Ketones Negative Urine Blood Large H Urine Nitrate Negative Urine Bilirubin Negative Urine Urobilinogen 0.2 Ur Leukocyte Esterase Negative Urine RBC 1 - 3 H Urine WBC 0 - 2 Ur Epithelial Cells 0 - 2 Amorphous Sediment Few Urine Bacteria None Hyaline Casts 0 - 2 Fine Granular Casts 0 - 2 Salicylates Acetaminophen Alcohol, Quantitative Hepatitis A IgM Ab Negative Hep Bs Antigen Negative Hep B Core IgM Ab Hepatitis C Antibody Negative 07/16/18 07/16/18 07/16/18 09:10 09:10 09:10 WBC 10.5 D RBC 4.32 Hgb 12.8 L Hct 39.3 L MCV 91.0 MCH 29.6 MCHC 32.6 RDW 14.7 H Plt Count 78 L MPV 12.7 H PT 33.4 H INR 2.84 APTT Sodium Potassium Chloride Carbon Dioxide Anion Gap BUN Creatinine Est GFR ( Amer) Est GFR (Non-Af Amer) Random Glucose Lactic Acid Calcium Phosphorus Magnesium Iron TIBC % Saturation Ferritin Total Bilirubin Direct Bilirubin AST ALT Alkaline Phosphatase Ammonia 11 Lactate Dehydrogenase Troponin I Total Protein Albumin Globulin Albumin/Globulin Ratio Alpha Fetoprotein Procalcitonin Urine Color Urine Appearance Urine pH Ur Specific Dexter Urine Protein Urine Glucose (UA) Urine Ketones Urine Blood Urine Nitrate Urine Bilirubin Urine Urobilinogen Ur Leukocyte Esterase Urine RBC Urine WBC Ur Epithelial Cells Amorphous Sediment Urine Bacteria Hyaline Casts Fine Granular Casts Salicylates Acetaminophen Alcohol, Quantitative Hepatitis A IgM Ab Hep Bs Antigen Hep B Core IgM Ab Hepatitis C Antibody 07/16/18 07/16/18 07/16/18 09:10 09:10 09:10 WBC RBC Hgb Hct MCV MCH MCHC RDW Plt Count MPV PT INR APTT Sodium 138 Potassium 3.9 Chloride 104 Carbon Dioxide 27 Anion Gap 10 BUN 61 H Creatinine 1.0 Est GFR ( Amer) > 60 Est GFR (Non-Af Amer) > 60 Random Glucose 103 Lactic Acid Calcium 9.1 Phosphorus 2.6 Magnesium 2.5 H Iron TIBC % Saturation Ferritin Total Bilirubin 2.3 H Direct Bilirubin 1.4 H AST 2377 H ALT 2773 H Alkaline Phosphatase 97 Ammonia Lactate Dehydrogenase 4152 H Troponin I 0.10 D Total Protein 7.0 Albumin 3.7 Globulin 3.3 Albumin/Globulin Ratio 1.1 Alpha Fetoprotein Procalcitonin Urine Color Urine Appearance Urine pH Ur Specific Dexter Urine Protein Urine Glucose (UA) Urine Ketones Urine Blood Urine Nitrate Urine Bilirubin Urine Urobilinogen Ur Leukocyte Esterase Urine RBC Urine WBC Ur Epithelial Cells Amorphous Sediment Urine Bacteria Hyaline Casts Fine Granular Casts Salicylates 1 L Acetaminophen < 10.0 L Alcohol, Quantitative < 10 Hepatitis A IgM Ab Hep Bs Antigen Hep B Core IgM Ab Hepatitis C Antibody 07/16/18 07/16/18 07/16/18 09:10 09:10 10:40 WBC RBC Hgb Hct MCV MCH MCHC RDW Plt Count MPV PT INR APTT Sodium Potassium Chloride Carbon Dioxide Anion Gap BUN Creatinine Est GFR ( Amer) Est GFR (Non-Af Amer) Random Glucose Lactic Acid Calcium Phosphorus Magnesium Iron 29 L TIBC 361 % Saturation 8 L Ferritin Total Bilirubin Direct Bilirubin AST ALT Alkaline Phosphatase Ammonia Lactate Dehydrogenase Troponin I Total Protein Albumin Globulin Albumin/Globulin Ratio Alpha Fetoprotein Procalcitonin 0.54 H Urine Color Urine Appearance Urine pH Ur Specific Dexter Urine Protein Urine Glucose (UA) Urine Ketones Urine Blood Urine Nitrate Urine Bilirubin Urine Urobilinogen Ur Leukocyte Esterase Urine RBC Urine WBC Ur Epithelial Cells Amorphous Sediment Urine Bacteria Hyaline Casts Fine Granular Casts Salicylates Acetaminophen Alcohol, Quantitative Hepatitis A IgM Ab Negative Hep Bs Antigen Negative Hep B Core IgM Ab Negative Hepatitis C Antibody Negative 07/16/18 07/16/18 07/16/18 10:40 16:17 21:50 WBC 8.1 D RBC 4.20 Hgb 12.4 L Hct 37.8 L MCV 90.0 MCH 29.5 MCHC 32.8 RDW 14.6 H Plt Count 76 L MPV 11.9 H PT INR APTT Sodium Potassium Chloride Carbon Dioxide Anion Gap BUN Creatinine Est GFR ( Amer) Est GFR (Non-Af Amer) Random Glucose Lactic Acid 1.6 Calcium Phosphorus Magnesium Iron TIBC % Saturation Ferritin 306.0 Total Bilirubin Direct Bilirubin AST ALT Alkaline Phosphatase Ammonia Lactate Dehydrogenase Troponin I Total Protein Albumin Globulin Albumin/Globulin Ratio Alpha Fetoprotein Procalcitonin Urine Color Urine Appearance Urine pH Ur Specific Dexter Urine Protein Urine Glucose (UA) Urine Ketones Urine Blood Urine Nitrate Urine Bilirubin Urine Urobilinogen Ur Leukocyte Esterase Urine RBC Urine WBC Ur Epithelial Cells Amorphous Sediment Urine Bacteria Hyaline Casts Fine Granular Casts Salicylates Acetaminophen Alcohol, Quantitative Hepatitis A IgM Ab Hep Bs Antigen Hep B Core IgM Ab Hepatitis C Antibody 07/16/18 07/16/18 21:50 21:50 WBC RBC Hgb Hct MCV MCH MCHC RDW Plt Count MPV PT 34.0 H INR 3.06 APTT 30.4 Sodium 141 Potassium 2.9 L* D Chloride 105 Carbon Dioxide 31 Anion Gap 8 L BUN 45 H Creatinine 0.7 L Est GFR ( Amer) > 60 Est GFR (Non-Af Amer) > 60 Random Glucose 111 H Lactic Acid Calcium 8.8 Phosphorus Magnesium Iron TIBC % Saturation Ferritin Total Bilirubin 2.0 H Direct Bilirubin AST 1483 H ALT 2115 H Alkaline Phosphatase 80 Ammonia Lactate Dehydrogenase Troponin I Total Protein 6.1 Albumin 3.1 Globulin 3.0 Albumin/Globulin Ratio 1.0 L Alpha Fetoprotein Procalcitonin Urine Color Urine Appearance Urine pH Ur Specific Dexter Urine Protein Urine Glucose (UA) Urine Ketones Urine Blood Urine Nitrate Urine Bilirubin Urine Urobilinogen Ur Leukocyte Esterase Urine RBC Urine WBC Ur Epithelial Cells Amorphous Sediment Urine Bacteria Hyaline Casts Fine Granular Casts Salicylates Acetaminophen Alcohol, Quantitative Hepatitis A IgM Ab Hep Bs Antigen Hep B Core IgM Ab Hepatitis C Antibody Attending/Attestation - Attestation I have personally seen and examined this patient.: Yes I have fully participated in the care of the patient.: Yes I have reviewed all pertinent clinical information: Yes Notes (Text): This is an addendum to GI consult report dictated by the GI Fellow.The patient was seen and examined earlier. Medical records, lab studies, imagings were reviewed. Last 24 hours events reviewed. Agreed with the above treatment plan as outlined in GI Fellow 's notes with the addition of the following Patient has hepatic encephalopathy Etiology for this patient's acute liver failure Differential diagnosis should include drug induced, ischemia, viral hepatitis Discussed with hepatology team Patient to be transferred later today Imaging studies reviewed no gallstones, portal and hepatic vein were patent Awaiting for the transfer 07/16/18 23:09
[2018-07-16 11:08] LABS: IRON 29 ug/dL (45-180)
[2018-07-16 11:17] LABS: % IRON SATURATION 8 % (20-55); TOTAL IRON BINDING CAPACITY 361 ug/dL (261-462)
[2018-07-16 12:21] LABS: HEPATITIS A IGM NEGATIVE (NEGATIVE)
[2018-07-16] MEDS ORDERED: DEXTROSE 5% IV ONE ×2 (12:21→16:31)
[2018-07-16] MEDS ORDERED: ACETYLCYSTEINE IV ONE ×2 (12:21→16:31)
[2018-07-16] MEDS ORDERED: WATER IV ONE ×2 (12:21→16:31)
[2018-07-16 12:23] LABS: HEPATITIS B SURFACE AG Negative (NEGATIVE)
[2018-07-16 12:33] LABS: HEPATITIS C ANTIBODY NEGATIVE (NEGATIVE)
--- NOTE | 2018-07-16 13:02 | CON ---
DATE: 07/16/2018 REQUESTING PHYSICIAN: Dr. Fontenot REASON FOR CONSULTATION: Severe peripheral edema. HISTORY: This is a 63-year-old man who presented to emergency room with complaints of worsening leg edema for several days. He also was complaining of back pain. He had some confusion overnight as currently in the ICU. He appears more awake and appropriate today. He denies any chest pain or dyspnea. He does have coronary artery disease and underwent coronary bypass surgery approximately 14 years ago. He was last seen in 2014 when he was admitted with chest pain. At that time, he was undergoing treatment for back pain and was on an extensive list of analgesic agents. Apparently, his leg swelling has been progressive the past several weeks. He reportedly had a prior myocardial infarction before his bypass surgery. CURRENT MEDICATIONS: Include aspirin, Lasix 40 mg every 12 hours., metoprolol 25 mg b.i.d. and an external patch. ALLERGIES: NONE. SOCIAL HISTORY: He is a smoker of at least half pack per day. He denies alcohol use at the present time. He denies any drug use either. FAMILY HISTORY: Several family members have premature heart disease though he cannot recall all details. REVIEW OF SYSTEMS: A 10-point review of systems is somewhat limited but otherwise unremarkable. PHYSICAL EXAMINATION: GENERAL: He is a disheveled-appearing middle-aged man. VITAL SIGNS: His blood pressure is 124/70 with a pulse of 90 and sinus, respirations are 16. He is afebrile. HEENT: Normocephalic, atraumatic. NECK: Supple. No JVD noted. CHEST: Bilateral scattered rhonchi heard. HEART: PMI displaced laterally with systolic murmur at the lower left sternal border as well as the apex. ABDOMEN: Soft, nontender with normoactive bowel sounds. EXTREMITIES: 2-3+ bilateral lower extremity edema. SKIN: Warm and dry. PSYCHIATRIC: Somewhat agitated but otherwise affect appears fairly normal. NEUROLOGIC: Alert and oriented x3. No gross motor or sensory deficits notable. DIAGNOSTIC DATA: Initial white count was 15.1, hemoglobin and hematocrit 12.4 and 38.9 with a platelet count of 102,000. PT/PTT 38.8 and 30.6 with INR 3.32. Potassium 5.4, repeat is 3.9. BUN and creatinine are 71 and 1.5. Bilirubin is 2.2. AST 4606 with an ALT of 3345. Troponin is 0.13. P 0.1. BNP 11,300. Ammonia level 22. LDH 4152. Chest x-ray reveals increased cardiac silhouette with clear lung luo and post-sternotomy changes. Electrocardiogram reveals sinus rhythm with left axis deviation, left bundle-branch block pattern. The lower extremity venous duplex scan shows no evidence of DVT. Abdominal ultrasound reveals nephrolithiasis as well as an echogenic liver and trace perihepatic ascites. CT of the abdomen and pelvis is notable mainly for the problems previously noted on ultrasound. CT of the head reveals mild diffuse cerebral atrophy. IMPRESSION: 1. Peripheral edema, suspect underlying liver disease, given elevated transaminases and liver parenchymal disease noted on CT and ultrasound. 2. Coronary artery disease status post remote myocardial fraction and bypass surgery. No recent evaluation reportedly performed. 3. Probable mitral regurgitation, unclear as to the degree this is contributing to his present symptomatology. 4. History of tobacco abuse. 5. Rest of problems as noted. RECOMMENDATIONS: IV Lasix should continue for now. Oral beta-zeus therapy will be added to his regimen. An echocardiogram has been ordered and will be reviewed. Negative fluid balance is advised. Statin therapy will be withheld, given his elevated transaminases. The GI evaluation is in progress. We will review his echocardiogram and make further recommendations based upon those findings. Further recommendations will be made based upon his clinical course and the review of the above. Joss Hayes MD
--- NOTE | 2018-07-16 13:09 | US ---
PROCEDURE: Portal vein duplex ultrasound. CLINICAL HISTORY: Abnormal liver function tests. Evaluate for portal vein thrombosis. PHYSICIAN(S): Lit Morrissey M.D. FINDINGS: The visualized hepatic parenchyma is normal in echotexture. The extrahepatic portal vein is patent with hepatopetal flow. The hepatic artery is patent. The central hepatic veins are well visualized and patent. No ascites is noted in the upper abdomen. The spleen was not imaged IMPRESSION: 1. Patent portal vein with hepatopetal flow.
[2018-07-16 17:07] LABS: HEPATITIS B SURFACE AG Negative (NEGATIVE)
[2018-07-16 17:13] LABS: HEPATITIS A IGM NEGATIVE (NEGATIVE); HEPATITIS B CORE AB NEGATIVE (NEGATIVE)
[2018-07-16 17:24] LABS: HEPATITIS C ANTIBODY NEGATIVE (NEGATIVE)
[2018-07-16 22:01] LABS: HEMOGLOBIN 12.4 g/dL (14.0-18.0); MEAN CORPUSCULAR HEMOGLOBIN 29.5 pg (25.0-35.0); MEAN CORPUSCULAR HGB CONC 32.8 g/dl (31.0-37.0); MEAN PLATELET VOLUME 11.9 fl (7.0-11.0); RBC 4.2 10^6/uL (3.5-6.1); RED CELL DISTRIBUTION WIDTH 14.6 % (11.5-14.5); WHITE BLOOD COUNT 8.1 10^3/uL (4.5-11.0)
[2018-07-16 22:09] LABS: INR 3.06; PARTIAL THROMBOPLASTIN TIME 30.4 Seconds (26.9-38.3)
[2018-07-16 22:29] LABS: ALBUMIN 3.1 g/dL (3.0-4.8); BLOOD UREA NITROGEN 45 mg/dL (7-21); CALCIUM 8.8 mg/dL (8.4-10.5); GFR NON-AFRICAN AMERICAN > 60
[2018-07-16 22:37] LABS: ALT/SGPT 2115 U/L (7-56); AST/SGOT 1483 U/L (17-59)
[2018-07-16] MEDS ORDERED: Potassium Chloride 20 mEq ER Tab PO ONE (22:39)
[2018-07-17] MEDS ORDERED: Potassium Chloride 20 mEq ER Tab PO ONE ×5 (03:15→22:47)
[2018-07-17 06:33] LABS: GRAN # 5.14 (1.4-6.5); GRAN % 80.7 % (50.0-68.0); HEMOGLOBIN 11.8 g/dL (14.0-18.0); LYMPH # 0.7 (1.2-3.4); LYMPH % 11.6 % (22.0-35.0); MEAN CELL VOLUME 89.4 fl (80.0-105.0); MEAN CORPUSCULAR HEMOGLOBIN 29.2 pg (25.0-35.0); MEAN CORPUSCULAR HGB CONC 32.7 g/dl (31.0-37.0); MEAN PLATELET VOLUME 13.5 fl (7.0-11.0); MONO # 0.5 (0.1-0.6); MONO % 7.7 % (1.0-6.0); RBC 4.04 10^6/uL (3.5-6.1); RED CELL DISTRIBUTION WIDTH 14.4 % (11.5-14.5); WHITE BLOOD COUNT 6.4 10^3/uL (4.5-11.0)
[2018-07-17 07:36] LABS: ALBUMIN 2.8 g/dL (3.0-4.8); ALT/SGPT 1775 U/L (7-56); AST/SGOT 1359 U/L (17-59); BLOOD UREA NITROGEN 36 mg/dL (7-21); CALCIUM 8.4 mg/dL (8.4-10.5); GFR NON-AFRICAN AMERICAN > 60
[2018-07-17 07:36] LABS: BLOOD UREA NITROGEN 37 mg/dL (7-21); GFR NON-AFRICAN AMERICAN > 60
[2018-07-17 07:38] LABS: CALCIUM 8.5 mg/dL (8.4-10.5); TROPONIN I 0.12 ng/mL
[2018-07-17] MEDS ORDERED: Potassium Chloride 20 mEq ER Tab PO STA ×2 (07:38)
[2018-07-17] MEDS ORDERED: Potassium Phosphate 15 MMOLE in Dextrose 5% In Water 250 ML IVPB ONE (07:43)
--- NOTE | 2018-07-17 07:56 | CARD ---
APPROVED REPORT Date of service: 07/16/2018 EXAM: Two-dimensional and M-mode echocardiogram with Doppler and color Doppler. INDICATION EDEMA 2D DIMENSIONS Left Atrium (2D)5.6 (1.6-4.0cm)IVSd1.1 (0.7-1.1cm) LVDd6.9 (3.9-5.9cm)PWd1.1 (0.7-1.1cm) LVDs6.1 (2.5-4.0cm)FS (%) 12.0 % LVEF (%)25.1 (>50%) M-Mode DIMENSIONS Aortic Root3.70 (2.2-3.7cm)Aortic Cusp Exc.1.80 (1.5-2.0cm) Aortic Valve AoV Peak Kssyyabo579.0cm/Gino Peak GR.6mmHg Mitral Valve MV E Ooixactp679.0cm/sMV A Wsgzucoz42.8cm/sE/A ratio2.0 TDI E/Lateral E'0.0E/Medial E'0.0 Pulmonary Valve PV Peak Fydbvium63.6cm/sPV Peak Grad.2mmHg Tricuspid Valve TR Peak Yasottlu590zp/sRAP GEENVTIR58tlMnHH Peak Gr.46mmHg [id number] LEFT VENTRICLE The Left Ventricle is moderately dilated. There is normal left ventricular wall thickness. The ejection fraction is severely impaired. There is global hypokinesis of the left ventricle. RIGHT VENTRICLE The right ventricle is mildly dilated. Systolic function is mildly reduced. ATRIA The left atrium is severely dilated. The right atrium is moderately dilated. The inferior vena cava is dilated. The interatrial septum is intact with no evidence for an atrial septal defect. AORTIC VALVE The aortic valve is normal in structure. No aortic regurgitation is present. There is no aortic valvular stenosis. MITRAL VALVE The mitral valve is moderately thickened. Mitral regurgitation is severe. TRICUSPID VALVE The tricuspid valve is normal in structure. There is moderate tricuspid regurgitation. There is moderate tricuspid regurgitation. PULMONIC VALVE The pulmonary valve is normal in structure. GREAT VESSELS The aortic root is normal in size. Dilated IVC with poor inspiration collapse is consistent with elevated right atrial pressure. PERICARDIAL EFFUSION There is no pleural effusion. There is no pericardial effusion. <Conclusion> Four chamber enlargement. Severely reduced LV systolic function with global hypokinesis. Severe MR. Moderate TR.
[2018-07-17] MEDS ORDERED: SODIUM PHOSPHATE IV SCH (08:45)
[2018-07-17] MEDS ORDERED: SODIUM CHLORIDE IV SCH (08:45)
[2018-07-17 09:08] LABS: INR 2.79; PARTIAL THROMBOPLASTIN TIME 31.3 Seconds (26.9-38.3); PROTHROMBIN TIME 31.5 SECONDS (9.4-12.5)
[2018-07-17] MEDS ORDERED: Sodium Phosphate 30 MMOLE in Sodium Chloride 0.9% 250 ML IVPB ONE (10:00)
[2018-07-17 10:31] LABS: HEMOGLOBIN 11.6 g/dL (14.0-18.0); MEAN CORPUSCULAR HEMOGLOBIN 29.1 pg (25.0-35.0); MEAN CORPUSCULAR HGB CONC 32.3 g/dl (31.0-37.0); MEAN PLATELET VOLUME 11.5 fl (7.0-11.0); RBC 3.99 10^6/uL (3.5-6.1); RED CELL DISTRIBUTION WIDTH 14.4 % (11.5-14.5); WHITE BLOOD COUNT 6.3 10^3/uL (4.5-11.0)
[2018-07-17 10:40] LABS: INR 2.76; PARTIAL THROMBOPLASTIN TIME 30.7 Seconds (26.9-38.3); PROTHROMBIN TIME 31.2 SECONDS (9.4-12.5)
[2018-07-17 10:55] LABS: ALBUMIN 2.8 g/dL (3.0-4.8); ALT/SGPT 1746 U/L (7-56); AST/SGOT 1182 U/L (17-59); BLOOD UREA NITROGEN 29 mg/dL (7-21); CALCIUM 8.3 mg/dL (8.4-10.5); GFR NON-AFRICAN AMERICAN > 60
[2018-07-17] MEDS: Potassium & Sodium Phosphate PO SCH ×3 (10:55→20:05)
[2018-07-17] MEDS ORDERED: OXYCODONE HCL PO PRN (11:12)
[2018-07-17] MEDS ORDERED: oxyCODONE 20 mg ER Tab (oxyCONTIN) PO SCH (11:45)
[2018-07-17] MEDS ORDERED: Iohexol 240 (50 ml) ONE (12:01)
--- NOTE | 2018-07-17 13:04 | PN ---
DATE: 07/17/2018 SUBJECTIVE: This patient is seen lying in bed on telemetry. He feels somewhat weak. He denies any dyspnea at rest. His leg edema is mildly improved. CURRENT MEDICATIONS: Include aspirin, Lasix 40 mg daily potassium supplement, metoprolol 25 mg twice daily., Neutra-Phos 1 packet 3 times daily, Nicoderm patch. PHYSICAL EXAMINATION: GENERAL: He is a disheveled-appearing middle-aged man. VITAL SIGNS: His blood pressure is 108/56 with a pulse of 90 and sinus with frequent PVCs noted, respirations are 14. He is afebrile. HEENT: No JVD. CHEST: Diminished breath sounds at the bases. HEART: PMI displaced laterally with systolic murmur present at the lower left sternal border as well as the apex. ABDOMEN: Soft, nontender, normoactive bowel sounds. EXTREMITIES: Revealed a 2+ leg edema. DIAGNOSTIC DATA: Potassium is 2.7, BUN and creatinine 36 and 0.6. White count 6.4, hemoglobin and hematocrit 11.8 and 36.1 with platelet count of 63,000. INR is 2.79. Phosphorus was 1.2. AST and ALT 1359 and 1775 respectively. Bilirubin is 2.0. IMPRESSION: 1. Peripheral edema, likely multifactorial given left ventricular dysfunction and valvular heart disease as well as probable underlying liver disease. 2. Coronary disease status post prior myocardial infarction and bypass surgery. 3. Severe left ventricular dysfunction. 4.. Severe mitral regurgitation with moderate tricuspid regurgitation. RECOMMENDATIONS: Diuretic therapy will continue for now. GI evaluation is in progress. Electrolyte replacement is advised. The need for compliance with medications and medical followup was discussed with the patient as well. Further plans will be made based upon his clinical course, response to above intervention. Joss Hayes MD
--- NOTE | 2018-07-17 14:41 | CP.PCM.PN ---
<Emmie Diaz - Last Filed: 07/17/18 14:54> Subjective - Date & Time of Evaluation Date of Evaluation: 07/17/18 Time of Evaluation: 08:15 - Subjective Subjective: Pgy3 Medicine Progress note for Dr. Fontenot Patient seen and examined. AO x [address] As per nursing patient had multiple episodes of nonsustained Vtach that lasted few seconds. Patient denied any chest pain/palpitations. He is making good urine 3100cc overnight. Patient is eating well and reported being hungry. Denied any headache, dizziness, chest pain, palpitations, SOB, cough, abd pain, nausea, vomiting, pain in his legs b/l. He continues to have b/l LE swelling and swelling in his groin. Objective - Vital Signs/Intake and Output Vital Signs (last 24 hours): Temp Pulse Resp BP Pulse Ox 97.6 F 80 18 115/56 L 98 07/16/18 12:00 07/17/18 13:10 07/17/18 13:00 07/17/18 13:00 07/17/18 13:10 Intake and Output: 07/17/18 07/17/18 06:59 18:59 Intake Total 1850 Output Total 3100 Balance -1250 - Medications Medications: Current Medications Aspirin (Aspirin Chewable) 81 mg PO DAILY [facility] [place] Last Admin: 07/17/18 10:56 Dose: 81 mg Furosemide (Lasix) 40 mg IVP DAILY [facility] [place] Sodium Phosphate 30 mmole/ (Sodium Chloride) 260 mls @ 42.5 mls/hr IVPB ONCE ONE Stop: 07/17/18 16:07 Last Admin: 07/17/18 10:51 Dose: 42.5 mls/hr Lactulose (Enulose) 20 gm PO BID [facility] [place] Last Admin: 07/17/18 10:57 Dose: 20 gm Metoprolol Tartrate (Lopressor) 25 mg PO BID [facility] Last Admin: 07/17/18 11:23 Dose: Not Given Nicotine (Nicoderm Cq) 1 patch TD DAILY [facility] [place] Last Admin: 07/17/18 10:55 Dose: 1 patch Oxycodone HCl (Oxycontin Extended Release Tab) 20 mg PO Q12H [facility] [place] Potassium Chloride (K-Dur 20 Meq Er Tab) 40 meq PO ONCE ONE Stop: 07/17/18 21:01 Potassium Phos/Sodium Phos (Neutra-Phos) 1 pkt PO TID [facility] Last Admin: 07/17/18 10:55 Dose: 1 pkt - Labs Labs: 07/17/18 10:15 07/17/18 10:15 PT 31.2 SECONDS (9.4-12.5) H 07/17/18 10:15 INR 2.76 07/17/18 10:15 APTT 30.7 Seconds (26.9-38.3) 07/17/18 10:15 - Additional Findings Additional findings: - Constitutional Appears: No Acute Distress, Unkempt, Older Than Stated Age - Head Exam Head Exam: ATRAUMATIC, NORMAL INSPECTION, NORMOCEPHALIC - Eye Exam Eye Exam: absent: Conjunctival injection, Scleral icterus - ENT Exam ENT Exam: Mucous Membranes Dry - Respiratory Exam Respiratory Exam: NORMAL BREATHING PATTERN. absent: Accessory Muscle Use, Rales, Rhonchi, Wheezes, Respiratory Distress - Cardiovascular Exam Cardiovascular Exam: +S1, +S2. absent: Bradycardia, Tachycardia - GI/Abdominal Exam GI & Abdominal Exam: Normal Bowel Sounds, Soft. absent: Firm, Organomegaly, Rigid, Tenderness - Rectal Exam Rectal Exam: Deferred - Exam Exam: Scrotal Swelling - Extremities Exam Extremities exam: Positive for: pedal edema (+3 b/l pitting with ) Additional comments: pulses palpable b/l - Neurological Exam Neurological exam: AO x [address] - Skin Additional comments: +abrasions noted b/l LE Assessment and Plan - Assessment and Plan (Free Text) Assessment: 1. Altered mental status 2. Acute liver failure 3. Elevated troponin- resolved 4. Bilateral lower extremity edema 5. Coagulopathy of unknown etiology 6. Encephalopathy 7. Electrolyte abnormalities 8. Leukocytosis- resolved 9. Elevated INR not on anticoag 10. CAD s/p CABG 11. Tobacco use disorder 12. Chronic opioid use Plan: Patient's vitals and blood work noted. Overnight events noted. Mentation much improved this AM. Patient's head CT was unremarkable for acute findings with minimal diffuse cerebral atrophy. Patient completed NAC as per protocol- LFTs tr ending down. Patient's acute liver failure unknown etiology at this time. Acute hep panel unremarkable. TATIANA negative. Pending ASMA, ANti LK Ab, AMA, IgG4, Ceruloplasmin. MELD-Na 28points on admission estimating 27-32% 90day mortality. Abdominal u/s and CT Abdomen/pelvis reviewed. Abdominal u/s with duplex revealed patent portal vein with hepatopetal flow- no signs of Budd Chiari. Patient's troponin resolved. Echo revealed EF 25% with signs of pulmonary HTN and 4 chamber enlargement. As per cardio will continue diuresing. Lasix 40mg ivp qd at this time. Patient on ASA 81mg and Lopressor 25mg bid at this time. Patient's b/l LE u/s negative for DVT. Patient's electrolyte abnormalities noted- hy pokalemia and hypophophatemia. Continue to replete and monitor closely. Leukocytosis resolved and patient remained afebrile. Procalcitonin elevation likely secondary to acute liver failure. Blood culture prelim negative x 2. Continue to monitor off abx at this time. As per chart patient has extensive smoking history; on Nicoderm patch qd. Patient also on chronic opioids- will continue. Patient pending transfer to [facility] Hepatology service; awaiting bed. Will continue to monitor closely at this time. Discussed with Dr. Po Diaz PGY3 <Antonio Fontenot S - Last Filed: 07/17/18 16:19> Objective - Vital Signs/Intake and Output Vital Signs (last 24 hours): Temp Pulse Resp BP Pulse Ox 97.6 F 80 18 115/56 L 98 07/16/18 12:00 07/17/18 13:10 07/17/18 13:00 07/17/18 13:00 07/17/18 13:10 Intake and Output: 07/17/18 07/17/18 06:59 18:59 Intake Total 1850 Output Total 3100 Balance -1250 - Medications Medications: Current Medications Aspirin (Aspirin Chewable) 81 mg PO DAILY [facility] Last Admin: 07/17/18 10:56 Dose: 81 mg Bacitracin (Bacitracin) 0 gm TOP Q12 [facility] Furosemide (Lasix) 40 mg IVP DAILY [facility] [place] Sodium Phosphate 30 mmole/ (Sodium Chloride) 260 mls @ 42.5 mls/hr IVPB ONCE ONE Stop: 07/17/18 16:07 Last Admin: 07/17/18 10:51 Dose: 42.5 mls/hr Lactulose (Enulose) 20 gm PO BID [facility] Last Admin: 07/17/18 10:57 Dose: 20 gm Metoprolol Tartrate (Lopressor) 25 mg PO BID [facility] Last Admin: 07/17/18 11:23 Dose: Not Given Nicotine (Nicoderm Cq) 1 patch TD DAILY [facility] [place] Last Admin: 07/17/18 10:55 Dose: 1 patch Oxycodone HCl (Oxycontin Extended Release Tab) 20 mg PO Q12H [facility] [place] Potassium Chloride (K-Dur 20 Meq Er Tab) 40 meq PO ONCE ONE Stop: 07/17/18 21:01 Potassium Phos/Sodium Phos (Neutra-Phos) 1 pkt PO TID [facility] [place] Last Admin: 07/17/18 10:55 Dose: 1 pkt - Labs Labs: 07/17/18 10:15 07/17/18 10:15 PT 31.2 SECONDS (9.4-12.5) H 07/17/18 10:15 INR 2.76 07/17/18 10:15 APTT 30.7 Seconds (26.9-38.3) 07/17/18 10:15 Assessment and Plan - Assessment and Plan (Free Text) Plan: Pt seen and examined by me. I have reviewed the note of the medical reception specialist and I agree with it. I have discussed the assessment and plan with the resident. I have reviewed the medications and the last labs.Pt with encephalopathy but is improving. He has acute liver failure. He has LE edema due to CHF-systolic dysfunction. The BRANDEN has improved. THe pt's coagulopathy remains. GI input is appreciated. Pt was taking vitamins as out pt but is not sure what type. He had stopped taking his heart medications. Spoke with cardiology today. Pt with hypokalemia and hypophospatemia. WIll replace as pt was having episodes of Vtach. LFTs are improving. HEPB/C is negative. Etiology is still unknown.
--- NOTE | 2018-07-17 14:50 | CP.PCM.PN ---
Subjective - Date & Time of Evaluation Date of Evaluation: 07/17/18 Time of Evaluation: 09:20 - Subjective Subjective: PGY-4 GI Fellow Prog Note Pt sleeping in bed when seen this AM; sitter at bedside. Pt denied any complaints this AM. More alert, able to state name and location; but thought date was February 1997. 5 point ROS negative other than stated above Objective - Vital Signs/Intake and Output Vital Signs (last 24 hours): Temp Pulse Resp BP Pulse Ox 97.6 F 80 18 115/56 L 98 07/16/18 12:00 07/17/18 13:10 07/17/18 13:00 07/17/18 13:00 07/17/18 13:10 Intake and Output: 07/17/18 07/17/18 06:59 18:59 Intake Total 1850 Output Total 3100 Balance -1250 - Medications Medications: Current Medications Aspirin (Aspirin Chewable) 81 mg PO DAILY [facility] Last Admin: 07/17/18 10:56 Dose: 81 mg Furosemide (Lasix) 40 mg IVP DAILY [facility] Sodium Phosphate 30 mmole/ (Sodium Chloride) 260 mls @ 42.5 mls/hr IVPB ONCE ONE Stop: 07/17/18 16:07 Last Admin: 07/17/18 10:51 Dose: 42.5 mls/hr Lactulose (Enulose) 20 gm PO BID [facility] Last Admin: 07/17/18 10:57 Dose: 20 gm Metoprolol Tartrate (Lopressor) 25 mg PO BID [facility] Last Admin: 07/17/18 11:23 Dose: Not Given Nicotine (Nicoderm Cq) 1 patch TD DAILY [facility] Last Admin: 07/17/18 10:55 Dose: 1 patch Oxycodone HCl (Oxycontin Extended Release Tab) 20 mg PO Q12H [facility] Potassium Chloride (K-Dur 20 Meq Er Tab) 40 meq PO ONCE ONE Stop: 07/17/18 21:01 Potassium Phos/Sodium Phos (Neutra-Phos) 1 pkt PO TID [facility] Last Admin: 07/17/18 10:55 Dose: 1 pkt - Labs Labs: 07/17/18 10:15 07/17/18 10:15 PT 31.2 SECONDS (9.4-12.5) H 07/17/18 10:15 INR 2.76 07/17/18 10:15 APTT 30.7 Seconds (26.9-38.3) 07/17/18 10:15 - Constitutional Appears: Well, No Acute Distress - Head Exam Head Exam: ATRAUMATIC, NORMAL INSPECTION - Eye Exam Eye Exam: EOMI. absent: Scleral icterus - ENT Exam ENT Exam: Mucous Membranes Moist. absent: Mucous Membranes Dry - Respiratory Exam Respiratory Exam: absent: Accessory Muscle Use, Respiratory Distress, NORMAL BREATHING PATTERN - Cardiovascular Exam Cardiovascular Exam: REGULAR RHYTHM, RRR - GI/Abdominal Exam GI & Abdominal Exam: Distended (mildly), Soft, Normal Bowel Sounds. absent: Bruit, Firm, Guarding, Rigid, Tenderness, Mass, Organomegaly, Pulsatile Mass Assessment and Plan - Assessment and Plan (Free Text) Assessment: 63 yo WF with CAD s/p CABG and chronic low back pain presenting with worsening LE edema, found to have abnormal liver tests and elevated INR. # Acute Liver Failure: Diagnostic criteria met of Encephalopathy and INR > 1.5 in absence of prior liver disease. Unclear etiology at this point with main differential of acute viral hepatitis, ischemia, drugs or acetaminophen induced. Pt reportedly on oxycodone alone without acetaminophen. Given h/o CAD, ischemia possible but BP not low here and does not seem like acute NE. Unknown if risk factors for acute viral hep. Echogenic liver on Abd US, CT (without contrast) without explanation of clinical presentation. # Acute Severe Hepatitis: AST and ALT > 1 k with mildly elevated bili and normal AP. Improving. Plan: - s/p NAC infusion - Echo with BiV CHF, 4 chamber enlargement, LVEF 25% and signs of Pulm HTN; congestive hepatopathy? - Working on transfer to [facility] Hepatology service; awaiting bed - Check Abd Duplex without PVT nor signs of Budd-Chiari - Cardiology consult, diuresing - Viral Hep Serologies pending; Hep A neg, HCV Ab neg, Hep B neg thus far - TATIANA negative - ASMA, Anti LK Ab, AMA, IgG4, ceruloplasmin pending - Lactulose PO since alert (with assistance); can switch to rectal if not able to take PO Pt discussed with Dr. Rizo; please see attestation for further recs/changes.
[2018-07-17] MEDS: Bacitracin Ointment 30 GM TUBE TOP SCH (21:09)
[2018-07-17 22:04] LABS: ALBUMIN 2.8 g/dL (3.0-4.8); BLOOD UREA NITROGEN 21 mg/dL (7-21); CALCIUM 8.1 mg/dL (8.4-10.5); GFR NON-AFRICAN AMERICAN > 60
[2018-07-17 22:12] LABS: HEMOGLOBIN 12.2 g/dL (14.0-18.0); MEAN CELL VOLUME 89.7 fl (80.0-105.0); MEAN CORPUSCULAR HEMOGLOBIN 29.2 pg (25.0-35.0); MEAN CORPUSCULAR HGB CONC 32.5 g/dl (31.0-37.0); MEAN PLATELET VOLUME 12.9 fl (7.0-11.0); RBC 4.18 10^6/uL (3.5-6.1); RED CELL DISTRIBUTION WIDTH 14.4 % (11.5-14.5); WHITE BLOOD COUNT 5.4 10^3/uL (4.5-11.0)
[2018-07-17 22:18] LABS: ALT/SGPT 1679 U/L (7-56); AST/SGOT 1097 U/L (17-59)
--- NOTE | 2018-07-18 05:06 | CP.PCM.PN ---
<Emmie Diaz - Last Filed: 07/18/18 18:50> Subjective - Date & Time of Evaluation Date of Evaluation: 07/18/18 Time of Evaluation: 06:30 - Subjective Subjective: Pgy3 Medicine Progress note for Dr. Fontenot Patient seen and examined at bedside. Mentation improved this AM. Patient had no acute events overnight. Reported he felt better and that the swelling in his b/l LE has improved. Patient denied fever, chills, chest pain, SOB, cough, abd pain, nausea, vomiting, bowel/bladder complaints. He complained of chronic pain and wanted his pain medications to be adjusted as per home dose. Patient admitted to taking "vitamin/supplement to help feel better/improve energy" for several days prior to presentation to the ER. Objective - Vital Signs/Intake and Output Vital Signs (last 24 hours): Temp Pulse Resp BP Pulse Ox 97.6 F 76 20 114/49 L 86 L 07/16/18 12:00 07/18/18 01:00 07/18/18 01:00 07/18/18 01:00 07/17/18 23:00 Intake and Output: 07/17/18 07/18/18 18:59 06:59 Intake Total 2700 Output Total 75 Balance 2625 - Medications Medications: Current Medications Aspirin (Aspirin Chewable) 81 mg PO DAILY [facility] Last Admin: 07/17/18 10:56 Dose: 81 mg Bacitracin (Bacitracin) 0 gm TOP Q12 [facility] Last Admin: 07/17/18 21:09 Dose: 1 dose Furosemide (Lasix) 40 mg IVP DAILY [facility] Last Admin: 07/17/18 17:49 Dose: Not Given Lactulose (Enulose) 20 gm PO BID [facility] Last Admin: 07/17/18 17:52 Dose: 20 gm Metoprolol Tartrate (Lopressor) 25 mg PO BID [facility] Last Admin: 07/17/18 20:05 Dose: 25 mg Nicotine (Nicoderm Cq) 1 patch TD DAILY [facility] Last Admin: 07/17/18 10:55 Dose: 1 patch Oxycodone HCl (Oxycontin Extended Release Tab) 20 mg PO Q12H [facility] Last Admin: 07/17/18 22:50 Dose: 20 mg Potassium Phos/Sodium Phos (Neutra-Phos) 1 pkt PO TID [facility] Last Admin: 07/17/18 20:05 Dose: 1 pkt - Labs Labs: 07/17/18 21:35 07/17/18 21:35 PT 31.2 SECONDS (9.4-12.5) H 07/17/18 10:15 INR 2.76 07/17/18 10:15 APTT 31.6 Seconds (26.9-38.3) 07/17/18 21:35 - Additional Findings Additional findings: - Constitutional Appears: No Acute Distress, Older Than Stated Age - Head Exam Head Exam: ATRAUMATIC, NORMAL INSPECTION, NORMOCEPHALIC - Eye Exam Eye Exam: absent: Conjunctival injection, Scleral icterus - ENT Exam ENT Exam: Mucous Membranes Dry - Respiratory Exam Respiratory Exam: NORMAL BREATHING PATTERN. absent: Accessory Muscle Use, Rales, Rhonchi, Wheezes, Respiratory Distress - Cardiovascular Exam Cardiovascular Exam: +S1, +S2. absent: Bradycardia, Tachycardia - GI/Abdominal Exam GI & Abdominal Exam: Normal Bowel Sounds, Soft. absent: Firm, Organomegaly, Rigid, Tenderness - Rectal Exam Rectal Exam: Deferred - Exam Exam: Scrotal Swelling - Extremities Exam Extremities exam: Positive for: pedal edema (+2 b/l pitting with abrasions ) Additional comments: wounds dressed by podiatry with optifoam pulses palpable b/l - Neurological Exam Neurological exam: AO x [address] - Skin Additional comments: +abrasions noted b/l LE Assessment and Plan - Assessment and Plan (Free Text) Assessment: 1. Altered mental status- resolving 2. Acute liver failure- improving 3. Elevated troponin- resolved 4. Bilateral lower extremity edema- improving 5. Coagulopathy of unknown etiology- improving 6. Hypokalemia 7. Hypophophatemia 8. Leukocytosis- resolved 9. Elevated INR not on anticoag 10. Thrombocytopenia 11. Acute systolic CHF 12. CAD s/p CABG 13. Tobacco use disorder 14. Chronic opioid use Plan: Patient's vitals, imaging and blood work noted in chart. Mentation much improved this AM. Patient's head CT was unremarkable for acute findings with minimal diffuse cerebral atrophy. Patient completed NAC as per protocol- LFTs trending down. Patient's acute liver failure unknown etiology at this time. Acute hep panel unremarkable. TATIANA negative. Pending further work up. Abdominal u/s and CT Abdomen/pelvis reviewed. Echo revealed EF 25% with signs of pulmonary HTN and 4 chamber enlargement. As per cardio will continue diuresing. Lasix 40mg ivp qd at this time with added Spironolactone. Patient on ASA 81mg and Lopressor 25mg bid at this time. Patient's b/l LE u/s negative for DVT. Patient's hypokalemia and hypophophatemia noted- consider refeeding syndrome. Repleted with KPhos and will recheck on AM labs. Leukocytosis resolved and patient remained afebrile. Hematology consulted in light of patient's worsening platelts. Procalcitonin elevation likely secondary to acute liver failure. Blood culture prelim negative x 2. Continue to monitor off abx at this time. As per chart patient has extensive smoking history; on Nicoderm patch qd. Patient also on chronic opioids- adjusted dose to home regimen. Patient pending transfer to [facility] Hepatology service; awaiting bed. Will continue to monitor closely at this time. Discussed with Dr. Po Diaz PGY3 <Antonio Fontenot S - Last Filed: 07/18/18 20:39> Objective - Vital Signs/Intake and Output Vital Signs (last 24 hours): Temp Pulse Resp BP Pulse Ox 98.2 F 98 H 16 120/64 91 L 07/18/18 12:00 07/18/18 17:35 07/18/18 17:01 07/18/18 17:35 07/18/18 17:01 Intake and Output: 07/18/18 07/19/18 18:59 06:59 Intake Total 1600 Output Total 450 Balance 1150 - Medications Medications: Current Medications Aspirin (Aspirin Chewable) 81 mg PO DAILY [facility] Last Admin: 07/18/18 11:21 Dose: 81 mg Bacitracin (Bacitracin) 0 gm TOP Q12 [facility] Last Admin: 07/18/18 12:00 Dose: Not Given Furosemide (Lasix) 40 mg IVP DAILY [facility] Last Admin: 07/18/18 13:16 Dose: Not Given Potassium Phosphate 15 mmole/ (Sodium Chloride) 255 mls @ 42.5 mls/hr IVPB ONCE ONE Stop: 07/19/18 00:53 Lactulose (Enulose) 20 gm PO BID [facility] Last Admin: 07/18/18 17:38 Dose: 20 gm Metoprolol Tartrate (Lopressor) 25 mg PO BID [facility] Last Admin: 07/18/18 17:35 Dose: 25 mg Nicotine (Nicoderm Cq) 1 patch TD DAILY [facility] Last Admin: 07/18/18 11:22 Dose: 1 patch Oxycodone HCl (Oxycontin Extended Release Tab) 40 mg PO Q12H [facility] Last Admin: 07/18/18 11:39 Dose: 40 mg Potassium Phos/Sodium Phos (Neutra-Phos) 1 pkt PO TID [facility] Last Admin: 07/18/18 15:05 Dose: 1 pkt Spironolactone (Aldactone) 25 mg PO BID [facility] Last Admin: 07/18/18 17:37 Dose: 25 mg - Labs Labs: 07/18/18 05:35 07/18/18 05:35 PT 23.6 SECONDS (9.4-12.5) H 07/18/18 05:35 INR 2.09 07/18/18 05:35 APTT 31.5 Seconds (26.9-38.3) 07/18/18 05:35 Assessment and Plan - Assessment and Plan (Free Text) Plan: Pt seen and examined by me. I have reviewed the note of the medical management trainer and I agree with it. I have discussed the assessment and plan with the resident. I have reviewed the medications and the last labs.Pt with encepholapathy that has improved. Acute Liver failure that is improving. Etiology is unknown. LE edema on Lasix. Hypokalemia and Hypophspatemia is improving. BRANDEN has improved. Coagulopathy is improving. Spoke to Dr Rizo and pt is still waiting to be transferred to [facility]. He will be transferred to med/surg floor. Pt on Nicoderm patch. OOB to chair and will need PT.
[2018-07-18 06:33] LABS: BASO # 0.01 K/mm3 (0.0-2.0); BASO % 0.2 % (0.0-3.0); EOS % 0.6 % (1.5-5.0); GRAN # 3.37 (1.4-6.5); GRAN % 63.4 % (50.0-68.0); HEMOGLOBIN 12.3 g/dL (14.0-18.0); INR 2.09; LYMPH # 1.2 (1.2-3.4); LYMPH % 22.4 % (22.0-35.0); MEAN CELL VOLUME 90.4 fl (80.0-105.0); MEAN CORPUSCULAR HEMOGLOBIN 28.9 pg (25.0-35.0); MONO # 0.7 (0.1-0.6); MONO % 13.4 % (1.0-6.0); PARTIAL THROMBOPLASTIN TIME 31.5 Seconds (26.9-38.3); PROTHROMBIN TIME 23.6 SECONDS (9.4-12.5); RBC 4.25 10^6/uL (3.5-6.1); RED CELL DISTRIBUTION WIDTH 14.7 % (11.5-14.5); WHITE BLOOD COUNT 5.3 10^3/uL (4.5-11.0)
[2018-07-18 06:57] LABS: ALB/GLOB RATIO 0.9 (1.1-1.8); ALBUMIN 2.7 g/dL (3.0-4.8); ALT/SGPT 1536 U/L (7-56); AST/SGOT 992 U/L (17-59); BLOOD UREA NITROGEN 19 mg/dL (7-21); CALCIUM 8.1 mg/dL (8.4-10.5); GFR NON-AFRICAN AMERICAN > 60
[2018-07-18 07:00] LABS: PLATELET COUNT 45 10^3/uL (120.0-450.0)
--- NOTE | 2018-07-18 10:51 | CP.PCM.CON ---
<Ryan Saleemson - Last Filed: 07/18/18 10:46> History of Present Illness - History of Present Illness History of Present Illness: Podiatry consult note for Dr. Altman 63M with pmhx of CAD s/p CABG, chronic LBP on oxycodone seen and evaluated at bedside for right foot wound. States that he recently has noticed his legs getting swollen and that he had been developing a wound on the top of his right foot while wearing shoes and going to work. States he was reluctant to come to the ED because he wanted to work but his made him. States that the healed scratches about his lower legs are from him crawling up the stairs at home as he would run out of energy. Denies N/V/F/C/SOB/CP and has no other acute complaints. PMHx: above PSHx: cardiac catheterization All: NKDA Past Patient History - Infectious Disease Hx of Infectious Diseases: None - Past Social History Smoking Status: Heavy Smoker > 10 Cigarettes Daily - CARDIAC Hx Cardiac Disorders: Yes Hx Peripheral Edema: Yes - PULMONARY Hx Respiratory Disorders: No - NEUROLOGICAL Other/Comment: Brain Aneurism - HEENT Hx HEENT Problems: No - RENAL Hx Chronic Kidney Disease: No - ENDOCRINE/METABOLIC Hx Endocrine Disorders: No - HEMATOLOGICAL/ONCOLOGICAL Hx Blood Disorders: No - INTEGUMENTARY Other/Comment: rt foot lesion - MUSCULOSKELETAL/RHEUMATOLOGICAL Hx Falls: No - GASTROINTESTINAL Hx Gastrointestinal Disorders: No - GENITOURINARY/GYNECOLOGICAL Hx Genitourinary Disorders: No - PSYCHIATRIC Hx Substance Use: No - SURGICAL HISTORY Hx Cardiac Catheterization: Yes Meds Allergies/Adverse Reactions: Allergies Allergy/AdvReac Type Severity Reaction Status Date / Time No Known Allergies Allergy Verified 07/15/18 13:41 - Medications Medications: Current Medications Aspirin (Aspirin Chewable) 81 mg PO DAILY [facility] Last Admin: 07/17/18 10:56 Dose: 81 mg Bacitracin (Bacitracin) 0 gm TOP Q12 [facility] Last Admin: 07/17/18 21:09 Dose: 1 dose Furosemide (Lasix) 40 mg IVP DAILY [facility] Last Admin: 07/17/18 17:49 Dose: Not Given Lactulose (Enulose) 20 gm PO BID [facility] Last Admin: 07/17/18 17:52 Dose: 20 gm Metoprolol Tartrate (Lopressor) 25 mg PO BID [facility] Last Admin: 07/17/18 20:05 Dose: 25 mg Nicotine (Nicoderm Cq) 1 patch TD DAILY [facility] Last Admin: 07/17/18 10:55 Dose: 1 patch Oxycodone HCl (Oxycontin Extended Release Tab) 40 mg PO Q12H [facility] Potassium Phos/Sodium Phos (Neutra-Phos) 1 pkt PO TID [facility] Last Admin: 07/17/18 20:05 Dose: 1 pkt Physical Exam - Constitutional Appears: Well, Non-toxic, No Acute Distress - Head Exam Head Exam: ATRAUMATIC, NORMOCEPHALIC - Extremities Exam Additional comments: RLE focused VASC: DP and PT pulses 2/4; cap refill <3 seconds to all digits; temp gradient warm to warm; +1 pitting edema noted to the LE DERM: 2 small 0.3 x 0.3 x 0.1 cm wounds noted at area of tongue of shoe dorsally, fibrotic tissue and scab formation appreciated, mild periwound erythema; healed scratches about the lower legs ORTHO: mild pain on palpation of the dorsum of the foot where wounds present NEURO: gross and protective sensation intact - Neurological Exam Neurological exam: Alert, Oriented x3 - Psychiatric Exam Psychiatric exam: Normal Affect, Normal Mood Results - Vital Signs Recent Vital Signs: Last Vital Signs Temp 98.6 F 07/18/18 04:00 Pulse 87 07/18/18 08:00 Resp 20 07/18/18 06:00 BP 141/88 07/18/18 08:00 Pulse Ox 95 07/18/18 08:00 - Labs Result Diagrams: 07/18/18 05:35 07/18/18 05:35 Labs: Laboratory Results - last 24 hr 07/16/18 07/16/18 07/16/18 09:10 09:10 13:00 WBC RBC Hgb Hct MCV MCH MCHC RDW Plt Count MPV Gran % Lymph % (Auto) Schleicher % (Auto) Eos % (Auto) Baso % (Auto) Gran # Lymph # (Auto) Schleicher # (Auto) Eos # (Auto) Baso # (Auto) PT INR APTT Sodium Potassium Chloride Carbon Dioxide Anion Gap BUN Creatinine Est GFR ( Amer) Est GFR (Non-Af Amer) Random Glucose Calcium Phosphorus Magnesium Total Bilirubin AST ALT Alkaline Phosphatase Total Protein Albumin Globulin Albumin/Globulin Ratio TATIANA Screen Negative Hepatitis C RNA <15 not detected HCV RNA Quant (PCR) <1.18 not detected HIV 1&2 Ag/Ab, 4th Gen Nonreactive 07/17/18 07/17/18 07/17/18 10:15 21:35 21:35 WBC 5.4 RBC 4.18 Hgb 12.2 L Hct 37.5 L MCV 89.7 MCH 29.2 MCHC 32.5 RDW 14.4 Plt Count 57 L MPV 12.9 H Gran % Lymph % (Auto) Schleicher % (Auto) Eos % (Auto) Baso % (Auto) Gran # Lymph # (Auto) Schleicher # (Auto) Eos # (Auto) Baso # (Auto) PT INR APTT 31.6 Sodium 138 Potassium 3.0 L Chloride 102 Carbon Dioxide 34 H Anion Gap 6 L BUN 29 H Creatinine 0.5 L Est GFR ( Amer) > 60 Est GFR (Non-Af Amer) > 60 Random Glucose 163 H Calcium 8.3 L Phosphorus 1.3 L* Magnesium 1.8 Total Bilirubin 1.9 H AST 1182 H ALT 1746 H Alkaline Phosphatase 70 Total Protein 5.5 L Albumin 2.8 L Globulin 2.7 Albumin/Globulin Ratio 1.0 L TATIANA Screen Hepatitis C RNA HCV RNA Quant (PCR) HIV 1&2 Ag/Ab, 4th Gen 07/17/18 07/17/18 07/17/18 21:35 21:35 23:16 WBC RBC Hgb Hct MCV MCH MCHC RDW Plt Count MPV Gran % Lymph % (Auto) Schleicher % (Auto) Eos % (Auto) Baso % (Auto) Gran # Lymph # (Auto) Schleicher # (Auto) Eos # (Auto) Baso # (Auto) PT INR APTT Sodium 138 Potassium 3.4 L Chloride 103 Carbon Dioxide 31 Anion Gap 7 L BUN 21 Creatinine 0.5 L Est GFR ( Amer) > 60 Est GFR (Non-Af Amer) > 60 Random Glucose 112 H Calcium 8.1 L Phosphorus 1.8 L Magnesium 1.7 Total Bilirubin 2.0 H AST 1097 H ALT 1679 H Alkaline Phosphatase 85 Total Protein 5.8 Albumin 2.8 L Globulin 2.9 Albumin/Globulin Ratio 1.0 L TATIANA Screen Hepatitis C RNA HCV RNA Quant (PCR) HIV 1&2 Ag/Ab, 4th Gen 07/18/18 07/18/18 07/18/18 05:35 05:35 05:35 WBC 5.3 RBC 4.25 Hgb 12.3 L Hct 38.4 L MCV 90.4 MCH 28.9 MCHC 32.0 RDW 14.7 H Plt Count 45 L* MPV Gran % 63.4 Lymph % (Auto) 22.4 Schleicher % (Auto) 13.4 H Eos % (Auto) 0.6 L Baso % (Auto) 0.2 Gran # 3.37 Lymph # (Auto) 1.2 Schleicher # (Auto) 0.7 H Eos # (Auto) 0.0 Baso # (Auto) 0.01 PT 23.6 H INR 2.09 APTT 31.5 Sodium 137 Potassium 3.8 Chloride 105 Carbon Dioxide 30 Anion Gap 6 L BUN 19 Creatinine 0.4 L Est GFR ( Amer) > 60 Est GFR (Non-Af Amer) > 60 Random Glucose 85 Calcium 8.1 L Phosphorus 1.8 L Magnesium 1.7 Total Bilirubin 1.9 H AST 992 H ALT 1536 H Alkaline Phosphatase 85 Total Protein 5.7 L Albumin 2.7 L Globulin 3.1 Albumin/Globulin Ratio 0.9 L TATIANA Screen Hepatitis C RNA HCV RNA Quant (PCR) HIV 1&2 Ag/Ab, 4th Gen Assessment & Plan - Assessment and Plan (Free Text) Assessment: 63M with pmhx of CAD s/p CABG, chronic LBP on oxycodone seen and evaluated for right foot dorsal wounds, infected Plan: Patient seen and evaluated with Dr. Altman Afebrile, absent leukocytosis Wound cleansed with sterile alcohol and dressed with optifoam Wound culture taken - f/u read Patient stable for discharge for foot wounds with PO abx Podiatry will follow while in house Thank you for the consult - Date & Time Date: 07/18/18 Time: 10:53 <Ysabel Altman - Last Filed: 07/21/18 18:54> Meds - Medications Medications: Current Medications Aspirin (Aspirin Chewable) 81 mg PO DAILY [facility] Last Admin: 07/21/18 10:09 Dose: 81 mg Bacitracin (Bacitracin) 0 gm TOP Q12 [facility] Last Admin: 07/21/18 10:09 Dose: 1 applic Furosemide (Lasix) 40 mg PO DAILY [facility] Last Admin: 07/20/18 18:17 Dose: 40 mg Cefepime HCl (Maxipime 1gm) 1 gm in 100 mls @ 100 mls/hr IVPB Q12 [facility]; Protocol Stop: 07/31/18 10:01 Last Admin: 07/21/18 10:10 Dose: 100 mls/hr Lactulose (Enulose) 20 gm PO DAILY [facility] Last Admin: 07/21/18 10:08 Dose: 20 gm Lidocaine (Lidoderm) 1 ea TD DAILY [facility] Last Admin: 07/21/18 10:08 Dose: 1 ea Metoprolol Tartrate (Lopressor) 25 mg PO BID [facility] Last Admin: 07/20/18 18:11 Dose: 25 mg Mupirocin (Bactroban Ointment) 0 gm TOP DAILY [facility] Last Admin: 07/21/18 10:10 Dose: 1 applic Nicotine (Nicoderm Cq) 1 patch TD DAILY [facility] Last Admin: 07/21/18 10:07 Dose: 1 patch Oxycodone HCl (Oxycontin Extended Release Tab) 40 mg PO TID [facility] Last Admin: 07/21/18 17:26 Dose: 40 mg Potassium Phos/Sodium Phos (Neutra-Phos) 1 pkt PO TID [facility] Last Admin: 07/21/18 17:27 Dose: 1 pkt Spironolactone (Aldactone) 25 mg PO BID [facility] Last Admin: 07/21/18 17:26 Dose: 25 mg Results - Vital Signs Recent Vital Signs: Last Vital Signs Temp 98.2 F 07/21/18 18:00 Pulse 77 07/21/18 18:00 Resp 18 07/21/18 18:00 BP 101/69 07/21/18 18:00 Pulse Ox 97 07/21/18 18:00 - Labs Result Diagrams: 07/21/18 06:50 07/21/18 06:50 Labs: Laboratory Results - last 24 hr 07/17/18 07/21/18 07/21/18 21:35 00:15 00:15 WBC 12.7 H D RBC 4.61 Hgb 13.7 L Hct 41.6 L MCV 90.2 MCH 29.7 MCHC 32.9 RDW 14.7 H Plt Count 41 L* Neut % (Auto) 74.6 H Lymph % (Auto) 12.6 L Schleicher % (Auto) 12.6 H Eos % (Auto) 0.0 L Baso % (Auto) 0.2 Lymph # (Auto) 1.6 Schleicher # (Auto) 1.6 H Eos # (Auto) 0.0 Baso # (Auto) 0.02 Absolute Neuts (auto) 9.45 H PT INR APTT Sodium 133 Potassium 5.1 H Chloride 97 L Carbon Dioxide 30 Anion Gap 11 BUN 32 H Creatinine 0.8 Est GFR ( Amer) > 60 Est GFR (Non-Af Amer) > 60 Random Glucose 121 H Calcium 8.5 Phosphorus Magnesium Total Bilirubin 1.7 H AST 216 H D ALT 800 H Alkaline Phosphatase 78 Troponin I 0.03 D Total Protein 6.7 Albumin 3.3 Globulin 3.4 Albumin/Globulin Ratio 1.0 L Hepatitis Be Antibody Not detected 07/21/18 07/21/18 07/21/18 06:50 06:50 06:50 WBC 9.8 D RBC 4.51 Hgb 13.3 L Hct 40.6 L MCV 90.0 MCH 29.5 MCHC 32.8 RDW 14.6 H Plt Count 33 L* Neut % (Auto) 65.4 Lymph % (Auto) 21.5 L Schleicher % (Auto) 12.8 H Eos % (Auto) 0.1 L Baso % (Auto) 0.2 Lymph # (Auto) 2.1 Schleicher # (Auto) 1.3 H Eos # (Auto) 0.0 Baso # (Auto) 0.02 Absolute Neuts (auto) 6.41 PT 22.1 H INR 1.96 APTT 33.2 Sodium 133 Potassium 4.4 Chloride 97 L Carbon Dioxide 30 Anion Gap 10 BUN 32 H Creatinine 0.7 L Est GFR ( Amer) > 60 Est GFR (Non-Af Amer) > 60 Random Glucose 134 H Calcium 8.1 L Phosphorus 3.4 Magnesium 1.9 Total Bilirubin 1.6 H AST 160 H D ALT 679 H Alkaline Phosphatase 69 Troponin I Total Protein 5.9 Albumin 2.8 L Globulin 3.1 Albumin/Globulin Ratio 0.9 L Hepatitis Be Antibody Attending/Attestation - Attestation I have personally seen and examined this patient.: Yes I have fully participated in the care of the patient.: Yes I have reviewed all pertinent clinical information: Yes
[2018-07-18] MEDS: Potassium & Sodium Phosphate PO SCH ×3 (11:22→21:05)
[2018-07-18] MEDS: oxyCODONE 20 mg ER Tab (oxyCONTIN) PO SCH ×2 (11:39→21:08)
[2018-07-18] MEDS: Bacitracin Ointment 30 GM TUBE TOP SCH ×2 (12:00→21:06)
--- NOTE | 2018-07-18 14:15 | CP.PCM.CON ---
History of Present Illness - History of Present Illness History of Present Illness: PGY-4 GI Fellow Prog Note Pt lying in bed when seen this AM. States he is doing well; LE edema improved. Oriented x2. 5 point ROS negative other than stated above Past Patient History - Infectious Disease Hx of Infectious Diseases: None - Past Social History Smoking Status: Heavy Smoker > 10 Cigarettes Daily - CARDIAC Hx Cardiac Disorders: Yes (CABG) - PULMONARY Hx Respiratory Disorders: No - NEUROLOGICAL Other/Comment: Brain Aneurism - HEENT Hx HEENT Problems: No - RENAL Hx Chronic Kidney Disease: No - ENDOCRINE/METABOLIC Hx Endocrine Disorders: No - HEMATOLOGICAL/ONCOLOGICAL Hx Blood Disorders: No - INTEGUMENTARY Other/Comment: rt foot lesion - MUSCULOSKELETAL/RHEUMATOLOGICAL Hx Arthritis: Yes - GASTROINTESTINAL Hx Gastrointestinal Disorders: No - GENITOURINARY/GYNECOLOGICAL Hx Genitourinary Disorders: No - PSYCHIATRIC Hx Substance Use: No - SURGICAL HISTORY Hx Cardiac Catheterization: Yes Meds Allergies/Adverse Reactions: Allergies Allergy/AdvReac Type Severity Reaction Status Date / Time No Known Allergies Allergy Verified 07/15/18 13:41 - Medications Medications: Current Medications Aspirin (Aspirin Chewable) 81 mg PO DAILY [facility] Last Admin: 07/18/18 11:21 Dose: 81 mg Bacitracin (Bacitracin) 0 gm TOP Q12 [facility] Last Admin: 07/18/18 12:00 Dose: Not Given Furosemide (Lasix) 40 mg IVP DAILY [facility] Last Admin: 07/18/18 13:16 Dose: Not Given Lactulose (Enulose) 20 gm PO BID [facility] Last Admin: 07/18/18 11:22 Dose: 20 gm Metoprolol Tartrate (Lopressor) 25 mg PO BID [facility] Last Admin: 07/18/18 11:23 Dose: 25 mg Nicotine (Nicoderm Cq) 1 patch TD DAILY [facility] Last Admin: 07/18/18 11:22 Dose: 1 patch Oxycodone HCl (Oxycontin Extended Release Tab) 40 mg PO Q12H [facility] Last Admin: 07/18/18 11:39 Dose: 40 mg Potassium Phos/Sodium Phos (Neutra-Phos) 1 pkt PO TID [facility] Last Admin: 07/18/18 11:22 Dose: 1 pkt Spironolactone (Aldactone) 25 mg PO BID [facility] Physical Exam - Constitutional Appears: Well, No Acute Distress - Head Exam Head Exam: ATRAUMATIC, NORMAL INSPECTION - Eye Exam Eye Exam: EOMI. absent: Scleral icterus - ENT Exam ENT Exam: Mucous Membranes Moist. absent: Mucous Membranes Dry - Respiratory Exam Respiratory Exam: NORMAL BREATHING PATTERN. absent: Accessory Muscle Use, Respiratory Distress - GI/Abdominal Exam GI & Abdominal Exam: Normal Bowel Sounds, Soft. absent: Bruit, Diminished Bowel Sounds, Distended, Firm, Guarding, Hernia, Mass, Organomegaly, Pulsatile Mass, Rebound, Rigid, Tenderness - Extremities Exam Extremities exam: Positive for: normal inspection, pedal edema (+2 bilateral LE edema (improved)) - Neurological Exam Neurological exam: Alert Additional comments: Oriented x 2 (not to date), Mild asterixis Results - Vital Signs Recent Vital Signs: Last Vital Signs Temp 98.2 F 07/18/18 12:00 Pulse 80 07/18/18 12:01 Resp 22 07/18/18 12:01 BP 103/42 L 07/18/18 12:01 Pulse Ox 97 07/18/18 12:01 - Labs Result Diagrams: 07/18/18 05:35 07/18/18 05:35 Labs: Laboratory Results - last 24 hr 07/16/18 07/16/18 07/17/18 09:10 13:00 21:35 WBC 5.4 RBC 4.18 Hgb 12.2 L Hct 37.5 L MCV 89.7 MCH 29.2 MCHC 32.5 RDW 14.4 Plt Count 57 L MPV 12.9 H Gran % Lymph % (Auto) [place] % (Auto) Eos % (Auto) Baso % (Auto) Gran # Lymph # (Auto) [place] # (Auto) Eos # (Auto) Baso # (Auto) PT INR APTT Sodium Potassium Chloride Carbon Dioxide Anion Gap BUN Creatinine Est GFR ( Amer) Est GFR (Non-Af Amer) Random Glucose Calcium Phosphorus Magnesium Total Bilirubin AST ALT Alkaline Phosphatase Total Protein Albumin Globulin Albumin/Globulin Ratio Anti-Smooth Muscle Ab Negative Liver/Kid Microsomes Ab <=20.0 Hepatitis C RNA <15 not detected HCV RNA Quant (PCR) <1.18 not detected 07/17/18 07/17/18 07/17/18 21:35 21:35 21:35 WBC RBC Hgb Hct MCV MCH MCHC RDW Plt Count MPV Gran % Lymph % (Auto) [place] % (Auto) Eos % (Auto) Baso % (Auto) Gran # Lymph # (Auto) [place] # (Auto) Eos # (Auto) Baso # (Auto) PT INR APTT 31.6 Sodium 138 Potassium 3.4 L Chloride 103 Carbon Dioxide 31 Anion Gap 7 L BUN 21 Creatinine 0.5 L Est GFR ( Amer) > 60 Est GFR (Non-Af Amer) > 60 Random Glucose 112 H Calcium 8.1 L Phosphorus 1.8 L Magnesium Total Bilirubin 2.0 H AST 1097 H ALT 1679 H Alkaline Phosphatase 85 Total Protein 5.8 Albumin 2.8 L Globulin 2.9 Albumin/Globulin Ratio 1.0 L Anti-Smooth Muscle Ab Liver/Kid Microsomes Ab Hepatitis C RNA HCV RNA Quant (PCR) 07/17/18 07/18/18 07/18/18 23:16 05:35 05:35 WBC 5.3 RBC 4.25 Hgb 12.3 L Hct 38.4 L MCV 90.4 MCH 28.9 MCHC 32.0 RDW 14.7 H Plt Count 45 L* MPV Gran % 63.4 Lymph % (Auto) 22.4 [place] % (Auto) 13.4 H Eos % (Auto) 0.6 L Baso % (Auto) 0.2 Gran # 3.37 Lymph # (Auto) 1.2 [place]ble # (Auto) 0.7 H Eos # (Auto) 0.0 Baso # (Auto) 0.01 PT INR APTT Sodium 137 Potassium 3.8 Chloride 105 Carbon Dioxide 30 Anion Gap 6 L BUN 19 Creatinine 0.4 L Est GFR ( Amer) > 60 Est GFR (Non-Af Amer) > 60 Random Glucose 85 Calcium 8.1 L Phosphorus 1.8 L Magnesium 1.7 1.7 Total Bilirubin 1.9 H AST 992 H ALT 1536 H Alkaline Phosphatase 85 Total Protein 5.7 L Albumin 2.7 L Globulin 3.1 Albumin/Globulin Ratio 0.9 L Anti-Smooth Muscle Ab Liver/Kid Microsomes Ab Hepatitis C RNA HCV RNA Quant (PCR) 07/18/18 05:35 WBC RBC Hgb Hct MCV MCH MCHC RDW Plt Count MPV Gran % Lymph % (Auto) [place] % (Auto) Eos % (Auto) Baso % (Auto) Gran # Lymph # (Auto) [place] # (Auto) Eos # (Auto) Baso # (Auto) PT 23.6 H INR 2.09 APTT 31.5 Sodium Potassium Chloride Carbon Dioxide Anion Gap BUN Creatinine Est GFR ( Amer) Est GFR (Non-Af Amer) Random Glucose Calcium Phosphorus Magnesium Total Bilirubin AST ALT Alkaline Phosphatase Total Protein Albumin Globulin Albumin/Globulin Ratio Anti-Smooth Muscle Ab Liver/Kid Microsomes Ab Hepatitis C RNA HCV RNA Quant (PCR) Assessment & Plan - Assessment and Plan (Free Text) Assessment: 63 yo WF with CAD s/p CABG and chronic low back pain presenting with worsening LE edema, found to have abnormal liver tests and elevated INR. # Acute Liver Failure: Diagnostic criteria met of Encephalopathy and INR > 1.5 in absence of prior liver disease. Unclear etiology at this point with main differential of acute viral hepatitis, ischemia, drugs or acetaminophen induced. Pt reportedly on oxycodone alone without acetaminophen. Given h/o CAD, ischemia possible but BP not low here and does not seem like acute AR. Unknown if risk factors for acute viral hep. Echogenic liver on Abd US, CT (without contrast) without explanation of clinical presentation. Pt reports took some kind of "vitamin/supplement to help feel better/improve energy" for several days prior to presentation, raising suspicion for drug induced liver failure. # Acute Severe Hepatitis: AST and ALT > 1 k with mildly elevated bili and normal AP. Improving. Plan: - s/p NAC infusion - Echo with BiV CHF, 4 chamber enlargement, LVEF 25% and signs of Pulm HTN; congestive hepatopathy? - Transfer to [facility] Hepatology service; awaiting bed - Abd Duplex without PVT nor signs of Budd-Chiari - Cardiology consulted, diuresing - Viral Hep Serologies negative thus far - TATIANA negative - ASMA, Anti LK Ab, AMA, IgG4, ceruloplasmin pending - Lactulose PO since alert (with assistance); can switch to rectal if not able to take PO - Consider Pulmonology consult given pulm HTN, possible PE? Pt seen and examined with Dr. Rizo; please see attestation for further recs/changes.
--- NOTE | 2018-07-18 15:08 | PN ---
DATE: 07/18/2018 SUBJECTIVE: The patient is seen lying in bed in the CCU. He states he is comfortable. His potassium level has been corrected to 3.8 this morning. His peripheral edema is slowly improving. CURRENT MEDICATIONS: Include aspirin, lactulose, Lasix 40 mg IV daily, metoprolol 25 mg twice daily, Neutra-Phos, Nicoderm patch. OBJECTIVE: GENERAL: He is a somewhat disheveled-appearing middle-aged man. VITAL SIGNS: His blood pressure is 140/88 with pulse of 86 and sinus, frequent PVCs noted, respirations are 16. He is afebrile. HEENT: Normocephalic and atraumatic. NECK: No JVD. CHEST: Diminished breath sounds at bases, a few scattered rhonchi noted. HEART: PMI displaced laterally with soft tones present. Systolic murmur at lower left sternal border as well as the apex. ABDOMEN: Soft and nontender with normoactive bowel sounds. EXTREMITIES: Revealed 2+ leg edema. DIAGNOSTIC DATA: Potassium 3.8, BUN and creatinine 19 and 0.4. White count 5.3. Hemoglobin and hematocrit 12.3 and 38.4 with platelet count of 45,000. INR is 2.09. Bilirubin is 1.9. AST and ALT 992 and 1536. IMPRESSION: 1. Severe peripheral edema, likely multifactorial given his left ventricular dysfunction, valvular heart disease and apparent liver disease. 2. Coronary disease status post prior myocardial fraction and bypass surgery, now with severe left ventricular systolic dysfunction. 3. Severe mitral regurgitation and moderate tricuspid regurgitation. RECOMMENDATIONS: Continue diuretic therapy is advised. The patient is being considered for transfer to [facility] liver disease service. Eventual reevaluation of his cardiac status will be necessary including a repeat catheterization to document as his current coronary anatomy. This will be deferred pending his GI workup. Spironolactone will be added to his regimen given his LV dysfunction and liver disease as well. We will continue to follow and make further recommendations as appropriate. Joss Hayes MD
[2018-07-18] MEDS ORDERED: Potassium Phosphate 15 MMOLE in Sodium Chloride 0.9% 250 ML IVPB ONE (18:54)
--- NOTE | 2018-07-19 04:21 | CP.PCM.PN ---
<Hang Diazima - Last Filed: 07/19/18 15:07> Subjective - Date & Time of Evaluation Date of Evaluation: 07/19/18 Time of Evaluation: 07:00 - Subjective Subjective: Pgy3 Medicine progress note for Dr. Fontenot Patient seen and examined at bedside. Nursing reported patient spiked temp 100.7F overnight. He denied any complaints of subjective fevers, chills, headache, dizzinness, chest pain, palpitations, SOB, cough, abd pain, nausea, vomiting, bowel/bladder complaints, pain in his legs bilaterally. Patient reports his swelling has much improved and he feels well. Objective - Vital Signs/Intake and Output Vital Signs (last 24 hours): Temp Pulse Resp BP Pulse Ox 100.7 F H 75 16 120/64 91 L 07/18/18 21:06 07/18/18 22:00 07/18/18 17:01 07/18/18 17:35 07/18/18 17:01 Intake and Output: 07/18/18 07/19/18 18:59 06:59 Intake Total 1600 Output Total 450 Balance 1150 - Medications Medications: Current Medications Aspirin (Aspirin Chewable) 81 mg PO DAILY REPLACED BY [facility] Last Admin: 07/18/18 11:21 Dose: 81 mg Bacitracin (Bacitracin) 0 gm TOP Q12 REPLACED BY [facility] Last Admin: 07/18/18 21:06 Dose: Not Given Furosemide (Lasix) 40 mg IVP DAILY REPLACED BY [facility] Last Admin: 07/18/18 13:16 Dose: Not Given Lactulose (Enulose) 20 gm PO BID REPLACED BY [facility] Last Admin: 07/18/18 17:38 Dose: 20 gm Metoprolol Tartrate (Lopressor) 25 mg PO BID REPLACED BY [facility] Last Admin: 07/18/18 17:35 Dose: 25 mg Nicotine (Nicoderm Cq) 1 patch TD DAILY REPLACED BY [facility] Last Admin: 07/18/18 11:22 Dose: 1 patch Oxycodone HCl (Oxycontin Extended Release Tab) 40 mg PO Q12H REPLACED BY [facility] Last Admin: 07/18/18 21:08 Dose: 40 mg Potassium Phos/Sodium Phos (Neutra-Phos) 1 pkt PO TID REPLACED BY [facility] Last Admin: 07/18/18 21:05 Dose: 1 pkt Spironolactone (Aldactone) 25 mg PO BID REPLACED BY [facility] Last Admin: 07/18/18 17:37 Dose: 25 mg - Labs Labs: 07/18/18 05:35 07/18/18 05:35 PT 23.6 SECONDS (9.4-12.5) H 07/18/18 05:35 INR 2.09 07/18/18 05:35 APTT 31.5 Seconds (26.9-38.3) 07/18/18 05:35 - Constitutional Appears: Non-toxic, No Acute Distress, Unkempt - Head Exam Head Exam: ATRAUMATIC, NORMAL INSPECTION, NORMOCEPHALIC - Eye Exam Eye Exam: EOMI, Normal appearance, PERRL. absent: Conjunctival injection, Scleral icterus Pupil Exam: NORMAL ACCOMODATION - ENT Exam ENT Exam: Mucous Membranes Moist - Neck Exam Neck Exam: Full ROM, Normal Inspection. absent: Lymphadenopathy - Respiratory Exam Respiratory Exam: Clear to Ausculation Bilateral, NORMAL BREATHING PATTERN. absent: Accessory Muscle Use, Rales, Rhonchi, Wheezes - Cardiovascular Exam Cardiovascular Exam: +S1, +S2. absent: Murmur - GI/Abdominal Exam GI & Abdominal Exam: Soft, Normal Bowel Sounds. absent: Distended, Firm, Guarding, Rigid, Tenderness - Rectal Exam Rectal Exam: Deferred - Extremities Exam Extremities Exam: Normal Inspection, Pedal Edema (+2 b/l much improved) Additional comments: healing wounds noted on b/l LE wounds noted on left knuckles - Back Exam Back Exam: NORMAL INSPECTION. absent: rash noted - Neurological Exam Neurological Exam: Alert, Awake, Oriented x3 - Psychiatric Exam Psychiatric exam: Normal Affect, Normal Mood - Skin Skin Exam: Dry, Intact, Normal Color, Warm Assessment and Plan - Assessment and Plan (Free Text) Assessment: 1. Acute liver failure- improving 2. Acute systolic CHF 3. Bilateral lower extremity edema- improving 4. Thrombocytopenia 5. Elevated INR not on anticoag- improving 6. Altered mental status on presentation- now resolved 7. Elevated troponin- resolved 8. CAD s/p CABG 9. Tobacco use disorder 10. Chronic opioid use 11. Medication noncompliance Plan: Patient's vitals, imaging and blood work noted in chart. Mentation much improved this AM. As patient spiked a temp overnight, blood cultures, urine cultures, and CXR ordered- will f/u. LFTs trending down. As of now, patients hep panel unrem arkable and TATIANA negative. Pending further work up. Abdominal u/s and CT Abdomen/pelvis reviewed. Echo revealed EF 25% with signs of pulmonary HTN and 4 chamber enlargement. As per cardio will continue diuresing. Lasix 40mg ivp qd at this time with added Spironolactone. Patient on ASA 81mg and Lopressor 25mg bid at this time. Patient's b/l LE u/s negative for DVT. Patient's thrombocytopenia worsening- today 36. Will order manual platelet count. Pending heme-onc reccs. Procalcitonin elevation likely secondary to acute liver failure. Blood culture prelim negative x 2. Continue to monitor off abx at this time. As per chart patient has extensive smoking history; on Nicoderm patch qd. Patient also on chronic opioids- adjusted dose to home regimen. Patient counseled thoroughly on the importance of medication compliance upon discharge. Discussed with Dr. Po Diaz PGY3 <Antonio Fontenot S - Last Filed: 07/19/18 16:55> Objective - Vital Signs/Intake and Output Vital Signs (last 24 hours): Temp Pulse Resp BP Pulse Ox 97.9 F 84 20 118/63 96 07/19/18 14:00 07/19/18 14:00 07/19/18 14:00 07/19/18 14:00 07/19/18 14:00 Intake and Output: 07/19/18 07/19/18 06:59 18:59 Intake Total 730 Output Total 830 Balance -100 - Medications Medications: Current Medications Aspirin (Aspirin Chewable) 81 mg PO DAILY REPLACED BY [facility] Last Admin: 07/19/18 09:14 Dose: 81 mg Bacitracin (Bacitracin) 0 gm TOP Q12 REPLACED BY [facility] Last Admin: 07/18/18 21:06 Dose: Not Given Furosemide (Lasix) 40 mg IVP DAILY REPLACED BY [facility] Last Admin: 07/19/18 09:14 Dose: 40 mg Lactulose (Enulose) 20 gm PO BID REPLACED BY [facility] Last Admin: 07/19/18 09:13 Dose: 20 gm Metoprolol Tartrate (Lopressor) 25 mg PO BID REPLACED BY [facility] Last Admin: 07/19/18 09:14 Dose: 25 mg Nicotine (Nicoderm Cq) 1 patch TD DAILY REPLACED BY [facility] Last Admin: 07/19/18 09:18 Dose: 1 patch Oxycodone HCl (Oxycontin Extended Release Tab) 40 mg PO Q12H REPLACED BY [facility] Last Admin: 07/19/18 09:15 Dose: 40 mg Potassium Phos/Sodium Phos (Neutra-Phos) 1 pkt PO TID REPLACED BY [facility] Last Admin: 07/19/18 15:55 Dose: 1 pkt Spironolactone (Aldactone) 25 mg PO BID REPLACED BY [facility] Last Admin: 07/19/18 09:18 Dose: 25 mg - Labs Labs: 07/19/18 06:20 07/19/18 06:20 PT 19.7 SECONDS (9.4-12.5) H 07/19/18 06:20 INR 1.74 07/19/18 06:20 APTT 32.2 Seconds (26.9-38.3) 07/19/18 06:20 Assessment and Plan - Assessment and Plan (Free Text) Plan: Pt seen and examined by me. I have reviewed the note of the medical director/head team physician and I agree with it. I have discussed the assessment and plan with the resident. I have reviewed the medications and the last labs.The pt with encephalopathy that has improved. Pt has acute Liver failure that is improving. Etiology remains unknown. LE edema is improved. BRANDEN has improved. Echo shows EF- 25% and has acute CHF due to systolic dysfunction. He does have thromboctopenia that is worsening. He is off of Abx. GI is following. He has Aldactone for CHF. He will continue with ASA and Lopressor.
[2018-07-19 06:50] LABS: BASO # 0.02 K/mm3 (0.0-2.0); BASO % 0.4 % (0.0-3.0); EOS # 0.1 (0.0-0.7); EOS % 1.4 % (1.5-5.0); GRAN # 3.33 (1.4-6.5); GRAN % 58.3 % (50.0-68.0); HEMOGLOBIN 13.7 g/dL (14.0-18.0); LYMPH # 1.6 (1.2-3.4); LYMPH % 27.4 % (22.0-35.0); MEAN CELL VOLUME 92.1 fl (80.0-105.0); MEAN CORPUSCULAR HEMOGLOBIN 30.1 pg (25.0-35.0); MEAN CORPUSCULAR HGB CONC 32.7 g/dl (31.0-37.0); MEAN PLATELET VOLUME 13.1 fl (7.0-11.0); MONO # 0.7 (0.1-0.6); MONO % 12.5 % (1.0-6.0); RBC 4.55 10^6/uL (3.5-6.1); WHITE BLOOD COUNT 5.7 10^3/uL (4.5-11.0)
[2018-07-19 06:53] LABS: INR 1.74; PARTIAL THROMBOPLASTIN TIME 32.2 Seconds (26.9-38.3); PROTHROMBIN TIME 19.7 SECONDS (9.4-12.5)
[2018-07-19 07:15] LABS: ALB/GLOB RATIO 0.9 (1.1-1.8); ALBUMIN 2.9 g/dL (3.0-4.8); ALT/SGPT 1281 U/L (7-56); AST/SGOT 622 U/L (17-59); BLOOD UREA NITROGEN 20 mg/dL (7-21); CALCIUM 8.2 mg/dL (8.4-10.5); GFR NON-AFRICAN AMERICAN > 60
[2018-07-19 07:30] LABS: PLATELET COUNT 36 10^3/uL (120.0-450.0)
[2018-07-19 08:22] LABS: CERULOPLASMIN 31 mg/dL (18-36)
[2018-07-19] MEDS: oxyCODONE 20 mg ER Tab (oxyCONTIN) PO SCH ×2 (09:15→21:43)
[2018-07-19] MEDS: Potassium & Sodium Phosphate PO SCH ×2 (09:18→15:55)
--- NOTE | 2018-07-19 11:10 | RAD ---
Date of service: 07/19/2018 HISTORY: elevated temp COMPARISON: 07/15/2018 TECHNIQUE: Chest PA and lateral FINDINGS: LUNGS: Minimal interstitial infiltrates right greater than left PLEURA: Small pleural effusions CARDIOVASCULAR: Aortic calcification Mild cardiomegaly no pulmonary vascular congestion. OSSEOUS STRUCTURES: Sternal wires VISUALIZED UPPER ABDOMEN: Normal. OTHER FINDINGS: None. IMPRESSION: Minimal interstitial infiltrates right greater than left. Small pleural effusions
--- NOTE | 2018-07-19 14:29 | PN ---
DATE: 07/19/2018 SUBJECTIVE: The patient is seen lying in bed in the CCU. He is feeling somewhat better. He denies any chest pain. His dyspnea has improved and his edema has improved as well. He awaits transfer to [facility] hepatology service. CURRENT MEDICATIONS: Include Aldactone 25 mg b.i.d., aspirin once daily, lactulose, Lasix 40 mg IV daily, metoprolol 25 mg b.i.d., Neutra-Phos, Nicoderm patch and oxycodone. OBJECTIVE: GENERAL: He is a middle-aged man who appears chronically ill. VITAL SIGNS: Blood pressure is 128/70 with pulse of 90 in sinus with frequent PVCs, respirations are 14 and he is afebrile. HEENT: No JVD. CHEST: Bilateral scattered rhonchi heard. HEART: PMI displaced laterally with systolic murmur at lower left sternal border. ABDOMEN: Soft and nontender with normoactive bowel sounds. EXTREMITIES: 1+ ankle edema. DIAGNOSTIC DATA: Potassium 4.0, BUN and creatinine 20 and 0.6. White count 5.7, hemoglobin and hematocrit 13.7 and 41.9 with platelet count of 36,000. PT/INR 19.7 and 1.74 with PTT of 32.2. AST and ALT 622 and 1281. Chest x-ray reveals mildly increased cardiac silhouette with questionable infiltrate on the right. IMPRESSION: 1. Recent peripheral edema, likely due to combination of liver disease, left ventricular dysfunction and valvular heart disease. 2. Severe mitral regurgitation. 3. Moderate tricuspid regurgitation. 4. Severe thrombocytopenia, etiology unclear. 5. Coronary artery disease status post remote myocardial fraction and bypass surgery, now with severe left ventricular systolic dysfunction. RECOMMENDATIONS: Diuretic therapy will continue for now. Plans are being made for transfer to [facility] for further liver evaluation. Eventual reassessment of his cardiac status with catheterization would be appropriate. Further recommendations will be made based upon his clinical course. The need for compliance with medical therapy and followup was discussed with him. Joss Hayes MD
--- NOTE | 2018-07-19 16:15 | CP.PCM.PN ---
<LexisamirErikmarion - Last Filed: 07/19/18 16:11> Subjective - Date & Time of Evaluation Date of Evaluation: 07/19/18 Time of Evaluation: 16:00 - Subjective Subjective: PGY-4 GI Fellow Prog Note Pt sitting up in bed when seen this afternoon. States he is doing OK. LE edema improved. Still unable to stake date. 5 point ROS negative other than stated above Objective - Vital Signs/Intake and Output Vital Signs (last 24 hours): Temp Pulse Resp BP Pulse Ox 97.9 F 84 20 118/63 96 07/19/18 14:00 07/19/18 14:00 07/19/18 14:00 07/19/18 14:00 07/19/18 14:00 Intake and Output: 07/19/18 07/19/18 06:59 18:59 Intake Total 730 Output Total 830 Balance -100 - Medications Medications: Current Medications Aspirin (Aspirin Chewable) 81 mg PO DAILY [facility] Last Admin: 07/19/18 09:14 Dose: 81 mg Bacitracin (Bacitracin) 0 gm TOP Q12 [facility] Last Admin: 07/18/18 21:06 Dose: Not Given Furosemide (Lasix) 40 mg IVP DAILY [facility] Last Admin: 07/19/18 09:14 Dose: 40 mg Lactulose (Enulose) 20 gm PO BID [facility] Last Admin: 07/19/18 09:13 Dose: 20 gm Metoprolol Tartrate (Lopressor) 25 mg PO BID [facility] Last Admin: 07/19/18 09:14 Dose: 25 mg Nicotine (Nicoderm Cq) 1 patch TD DAILY [facility] Last Admin: 07/19/18 09:18 Dose: 1 patch Oxycodone HCl (Oxycontin Extended Release Tab) 40 mg PO Q12H [facility] Last Admin: 07/19/18 09:15 Dose: 40 mg Potassium Phos/Sodium Phos (Neutra-Phos) 1 pkt PO TID [facility] Last Admin: 07/19/18 15:55 Dose: 1 pkt Spironolactone (Aldactone) 25 mg PO BID [facility] Last Admin: 07/19/18 09:18 Dose: 25 mg - Labs Labs: 07/19/18 06:20 07/19/18 06:20 PT 19.7 SECONDS (9.4-12.5) H 07/19/18 06:20 INR 1.74 07/19/18 06:20 APTT 32.2 Seconds (26.9-38.3) 07/19/18 06:20 - Constitutional Appears: Well, No Acute Distress - Head Exam Head Exam: ATRAUMATIC, NORMAL INSPECTION - Eye Exam Eye Exam: EOMI. absent: Scleral icterus - ENT Exam ENT Exam: Mucous Membranes Moist. absent: Mucous Membranes Dry - Respiratory Exam Respiratory Exam: NORMAL BREATHING PATTERN. absent: Accessory Muscle Use, Respiratory Distress - GI/Abdominal Exam GI & Abdominal Exam: Soft, Normal Bowel Sounds. absent: Bruit, Distended, Firm, Guarding, Rigid, Tenderness, Mass, Organomegaly, Pulsatile Mass - Neurological Exam Neurological Exam: Alert Additional comments: Ox2, + mild asterixis but improved Assessment and Plan - Assessment and Plan (Free Text) Assessment: 63 yo WF with CAD s/p CABG and chronic low back pain presenting with worsening LE edema, found to have abnormal liver tests and elevated INR. # Acute Liver Failure: Diagnostic criteria met of Encephalopathy and INR > 1.5 in absence of prior liver disease. Unclear etiology at this point with main differential of acute viral hepatitis, ischemia, drugs or acetaminophen induced. Pt reportedly on oxycodone alone without acetaminophen. Given h/o CAD, ischemia possible but BP not low here and does not seem like acute TN. Unknown if risk factors for acute viral hep. Echogenic liver on Abd US, CT (without contrast) without explanation of clinical presentation. Pt reports took some kind of "vitamin/supplement to help feel better/improve energy" for several days prior to presentation, raising suspicion for drug induced liver injury. # Acute Severe Hepatitis: AST and ALT > 1 k with mildly elevated bili and normal AP. Improving. Plan: - s/p NAC infusion - Echo with BiV CHF, 4 chamber enlargement, LVEF 25% and signs of Pulm HTN; congestive hepatopathy? - Abd Duplex without PVT nor signs of Budd-Chiari - Primary team to decided whether to proceed with transfer to [facility] - Cardiology consulted - Viral Hep Serologies negative as well as broad Autoimmune and serologic workup. - Lactulose PO - Consider Pulmonology and Hematology consult - Peripheral smear given anemia and worsening thrombocytopenia Pt discussed with Dr. Rizo; please see attestation for further recs/changes. <Deshaun Rizo V - Last Filed: 07/19/18 22:36> Objective - Vital Signs/Intake and Output Vital Signs (last 24 hours): Temp Pulse Resp BP Pulse Ox 97.9 F 84 20 118/63 96 07/19/18 14:00 07/19/18 17:38 07/19/18 14:00 07/19/18 17:38 07/19/18 14:00 - Medications Medications: Current Medications Aspirin (Aspirin Chewable) 81 mg PO DAILY [facility] Last Admin: 07/19/18 09:14 Dose: 81 mg Bacitracin (Bacitracin) 0 gm TOP Q12 [facility] Last Admin: 07/19/18 17:29 Dose: Not Given Furosemide (Lasix) 40 mg PO DAILY [facility] Lactulose (Enulose) 20 gm PO DAILY [facility] Metoprolol Tartrate (Lopressor) 25 mg PO BID [facility] Last Admin: 07/19/18 17:38 Dose: 25 mg Nicotine (Nicoderm Cq) 1 patch TD DAILY [facility] Last Admin: 07/19/18 09:18 Dose: 1 patch Oxycodone HCl (Oxycontin Extended Release Tab) 40 mg PO Q12H [facility] Last Admin: 07/19/18 21:43 Dose: 40 mg Potassium Phos/Sodium Phos (Neutra-Phos) 1 pkt PO TID [facility] Last Admin: 07/19/18 15:55 Dose: 1 pkt Spironolactone (Aldactone) 25 mg PO BID [facility] Last Admin: 07/19/18 17:38 Dose: 25 mg - Labs Labs: 07/19/18 06:20 07/19/18 06:20 PT 19.7 SECONDS (9.4-12.5) H 07/19/18 06:20 INR 1.74 07/19/18 06:20 APTT 32.2 Seconds (26.9-38.3) 07/19/18 06:20 Attending/Attestation - Attestation I have personally seen and examined this patient.: Yes I have fully participated in the care of the patient.: Yes I have reviewed all pertinent clinical information, including history, physical exam and plan: Yes Notes (Text): This is an addendum to GI progress report dictated by the GI Fellow.The patient was seen and examined earlier. Medical records, lab studies, imagings were reviewed. Last 24 hours events reviewed. Agreed with the above treatment plan as outlined in GI Fellow 's notes with the addition of the following 07/19/18 22:36
[2018-07-19 17:11] LABS: URINE BILIRUBIN SMALL (NEGATIVE); URINE BLOOD SMALL (NEGATIVE); URINE GLUCOSE (UA) NEGATIVE (NEGATIVE); URINE LEUKOCYTE ESTERASE NEGATIVE Leu/uL (NEGATIVE); URINE PROTEIN NEGATIVE mg/dL (<30 mg/dL); URINE UROBILINOGEN >=8.0 E.U./dL (<1 E.U./dL)
[2018-07-19 17:26] LABS: URINE APPEARANCE CLEAR (CLEAR); URINE COLOR DARK YELLOW (YELLOW)
[2018-07-19 17:29] LABS: URINE RBC 15 - 20 /hpf (0-2)
[2018-07-19] MEDS: Bacitracin Ointment 30 GM TUBE TOP SCH (17:29)
[2018-07-19 17:30] LABS: URINE HYALINE CAST 0 - 2 /hpf
[2018-07-19 17:40] LABS: BARBITURATES, UR NEGATIVE (NEGATIVE); BENZODIAZEPINES, UR NEGATIVE (NEGATIVE); OPIATES, UR POSITIVE (NEGATIVE); PHENCYCLIDINE, UR NEGATIVE (NEGATIVE)
[2018-07-20 08:04] LABS: EOS % 0.1 % (1.5-5.0); HEMOGLOBIN 12.9 g/dL (14.0-18.0); LYMPH # 1.3 (1.2-3.4); LYMPH % 13.1 % (22.0-35.0); MEAN CELL VOLUME 90.4 fl (80.0-105.0); MEAN CORPUSCULAR HEMOGLOBIN 29.5 pg (25.0-35.0); MEAN CORPUSCULAR HGB CONC 32.7 g/dl (31.0-37.0); MONO # 1.1 (0.1-0.6); MONO % 11.3 % (1.0-6.0); RBC 4.37 10^6/uL (3.5-6.1); RED CELL DISTRIBUTION WIDTH 14.8 % (11.5-14.5); WHITE BLOOD COUNT 9.5 10^3/uL (4.5-11.0)
[2018-07-20 08:08] LABS: INR 1.69; PARTIAL THROMBOPLASTIN TIME 33.6 Seconds (26.9-38.3); PROTHROMBIN TIME 19.1 SECONDS (9.4-12.5)
[2018-07-20 08:10] LABS: PLATELET COUNT 31 10^3/uL (120.0-450.0)
--- NOTE | 2018-07-20 08:11 | CP.PCM.PN ---
<Emmie Diaz - Last Filed: 07/20/18 11:49> Subjective - Date & Time of Evaluation Date of Evaluation: 07/20/18 Time of Evaluation: 07:30 - Subjective Subjective: Pgy3 Medicine progress note for Dr. Fontenot Patient seen and examined at bedside. Overnight events noted. Patient was agitated and requesting pain medications. I spoke to sister Carmel in detail this morning. Patient was resting comfortably this AM. Denied any acute complaints of fever, chills, headache, chest pain, SOB, cough, abd pain, nausea, vomiting, bowel/bladder complaints, pain in his legs bilaterally. Patient continues to have bilateral LE swelling although much improved from admission. Objective - Vital Signs/Intake and Output Vital Signs (last 24 hours): Temp Pulse Resp BP Pulse Ox 98 F 62 20 125/68 96 07/19/18 22:00 07/19/18 22:00 07/19/18 22:00 07/19/18 22:00 07/19/18 22:00 - Medications Medications: Current Medications Aspirin (Aspirin Chewable) 81 mg PO DAILY [facility] Last Admin: 07/19/18 09:14 Dose: 81 mg Bacitracin (Bacitracin) 0 gm TOP Q12 [facility] Last Admin: 07/19/18 17:29 Dose: Not Given Furosemide (Lasix) 40 mg PO DAILY [facility] Lactulose (Enulose) 20 gm PO DAILY [facility] Metoprolol Tartrate (Lopressor) 25 mg PO BID [facility] Last Admin: 07/19/18 17:38 Dose: 25 mg Nicotine (Nicoderm Cq) 1 patch TD DAILY [facility] Last Admin: 07/19/18 09:18 Dose: 1 patch Oxycodone HCl (Oxycontin Extended Release Tab) 40 mg PO TID [facility] Potassium Phos/Sodium Phos (Neutra-Phos) 1 pkt PO TID [facility] Last Admin: 07/19/18 15:55 Dose: 1 pkt Spironolactone (Aldactone) 25 mg PO BID [facility] Last Admin: 07/19/18 17:38 Dose: 25 mg - Labs Labs: 07/20/18 07:30 07/19/18 06:20 PT 19.1 SECONDS (9.4-12.5) H 07/20/18 07:30 INR 1.69 07/20/18 07:30 APTT 33.6 Seconds (26.9-38.3) 07/20/18 07:30 - Additional Findings Additional findings: - Constitutional Appears: Non-toxic, No Acute Distress, Unkempt - Head Exam Head Exam: ATRAUMATIC, NORMAL INSPECTION, NORMOCEPHALIC - Eye Exam Eye Exam: EOMI, Normal appearance, PERRL. absent: Conjunctival injection, Scleral icterus Pupil Exam: NORMAL ACCOMODATION - ENT Exam ENT Exam: Mucous Membranes Moist - Neck Exam Neck Exam: Full ROM, Normal Inspection. absent: Lymphadenopathy - Respiratory Exam Respiratory Exam: Clear to Ausculation Bilateral, NORMAL BREATHING PATTERN. absent: Accessory Muscle Use, Rales, Rhonchi, Wheezes - Cardiovascular Exam Cardiovascular Exam: +S1, +S2. absent: Murmur - GI/Abdominal Exam GI & Abdominal Exam: Soft, Normal Bowel Sounds. absent: Distended, Firm, Guarding, Rigid, Tenderness - Rectal Exam Rectal Exam: Deferred - Extremities Exam Extremities Exam: Normal Inspection, Pedal Edema (+2 b/l much improved) Additional comments: healing wounds noted on b/l LE wounds noted on left knuckles - Back Exam Back Exam: NORMAL INSPECTION. absent: rash noted - Neurological Exam Neurological Exam: Alert, Awake - Psychiatric Exam Psychiatric exam: Normal Affect, Normal Mood - Skin Skin Exam: Dry, Intact, Normal Color, Warm Assessment and Plan - Assessment and Plan (Free Text) Assessment: 1. Acute liver failure- improving 2. Acute systolic CHF 3. Bilateral lower extremity edema- improving 4. Thrombocytopenia 5. Elevated INR not on anticoag- improving 6. Altered mental status on presentation- now resolved 7. Elevated troponin- resolved 8. CAD s/p CABG 9. Tobacco use disorder 10. Chronic opioid use 11. Medication noncompliance Plan: Patient's vitals, imaging and blood work noted in chart. Patient's repeat blood cultures negative x 2. CXR reviewed. LFTs continuing to trend down. As of now, patients hep panel unremarkable and broad autoimmune workup negative. Abdominal u/s and CT Abdomen/pelvis reviewed. Echo revealed EF 25% with signs of pulmonary HTN and 4 chamber enlargement. As per cardio will continue diuresing. Lasix 40mg has been switched to po daily with added Spironolactone. Patient on ASA 81mg and Lopressor 25mg bid at this time. Patient's b/l LE u/s negative for DVT. Patient's thrombocytopenia worsening- today 31. Manual plt count is 45. Pending peripheral smear and Heme-onc reccs. Procalcitonin elevation likely secondary to acute liver failure. Patient has extensive smoking history; on Nicoderm patch qd. Patient also on chronic opioids- adjusted dose to home regimen oxycodone ER 40mg tid after lengthy conversation with sister Carmel. Sister also stated patient follows very unhealthy low nutritional diet- Career Guidance Technician on board to adolescent counselor patient. Podiatry on board for LE wounds. Patient also counseled thoroughly on the importance of medication compliance upon discharge. Spoke to patient's sister Carmel [phone] at length regarding patient and all questions and concerns were answered. Patient's sister is also eager for the patient to be discharged to TCU when he is medically optimized. Discussed with Dr. Po Diaz PGY3 <Antonio Fontenot S - Last Filed: 07/20/18 19:53> Objective - Vital Signs/Intake and Output Vital Signs (last 24 hours): Temp Pulse Resp BP Pulse Ox 98.2 F 90 20 123/100 H 97 07/20/18 06:00 07/20/18 18:11 07/20/18 06:00 07/20/18 18:17 07/20/18 06:00 - Medications Medications: Current Medications Aspirin (Aspirin Chewable) 81 mg PO DAILY [facility] Last Admin: 07/20/18 09:23 Dose: 81 mg Bacitracin (Bacitracin) 0 gm TOP Q12 [facility] Last Admin: 07/20/18 10:00 Dose: 1 applic Furosemide (Lasix) 40 mg PO DAILY [facility] Last Admin: 07/20/18 18:17 Dose: 40 mg Ceftriaxone Sodium (Rocephin 1 Gram Ivpb) 1 gm in 100 mls @ 100 mls/hr IVPB DAILY [facility]; Protocol Last Admin: 07/20/18 13:28 Dose: 100 mls/hr Lactulose (Enulose) 20 gm PO DAILY [facility] Last Admin: 07/20/18 09:18 Dose: Not Given Metoprolol Tartrate (Lopressor) 25 mg PO BID [facility] Last Admin: 07/20/18 18:11 Dose: 25 mg Mupirocin (Bactroban Ointment) 0 gm TOP DAILY [facility] Last Admin: 07/20/18 13:27 Dose: 1 applic Nicotine (Nicoderm Cq) 1 patch TD DAILY [facility] Last Admin: 07/20/18 09:21 Dose: 1 patch Oxycodone HCl (Oxycontin Extended Release Tab) 40 mg PO TID [facility] Last Admin: 07/20/18 18:09 Dose: 40 mg Potassium Phos/Sodium Phos (Neutra-Phos) 1 pkt PO TID [facility] Last Admin: 07/20/18 18:09 Dose: 1 pkt Spironolactone (Aldactone) 25 mg PO BID [facility] Last Admin: 07/20/18 18:11 Dose: 25 mg - Labs Labs: 07/20/18 07:30 07/20/18 07:30 PT 19.1 SECONDS (9.4-12.5) H 07/20/18 07:30 INR 1.69 07/20/18 07:30 APTT 33.6 Seconds (26.9-38.3) 07/20/18 07:30 Assessment and Plan - Assessment and Plan (Free Text) Plan: Pt seen and examined by me. I have reviewed the note of the director medical economics and I agree with it. I have discussed the assessment and plan with the resident. I have reviewed the medications and the last labs.Pt with encepholopathy that has improved. Pt had acute Liver failure and is improving. He had BRANDEN that improved. He has coagulopathy that is improving. He is on Lasix for LE edema and CHF acute due to systolic dysfunction. Pt may need TCU. I have increased his oxycodone for his pain. He said pain is not controlled. Eating well.
[2018-07-20 08:20] LABS: ALB/GLOB RATIO 0.9 (1.1-1.8); ALBUMIN 2.8 g/dL (3.0-4.8); ALT/SGPT 872 U/L (7-56); AST/SGOT 292 U/L (17-59); BLOOD UREA NITROGEN 24 mg/dL (7-21); GFR NON-AFRICAN AMERICAN > 60
[2018-07-20 09:19] LABS: PLATELET COUNT MANUAL 45 K/mm3 (120-450); PLATELET ESTIMATE LOW (NORMAL)
[2018-07-20] MEDS: oxyCODONE 20 mg ER Tab (oxyCONTIN) PO SCH ×3 (09:22→18:09)
[2018-07-20] MEDS: Potassium & Sodium Phosphate PO SCH ×3 (09:24→18:09)
--- NOTE | 2018-07-20 09:54 | CP.PCM.PN ---
<Juliocesar Leon - Last Filed: 07/20/18 09:50> Subjective - Date & Time of Evaluation Date of Evaluation: 07/20/18 Time of Evaluation: 09:51 - Subjective Subjective: Podiatry Progress Note - Drs. Altman/Rabia 63M seen and evaluated this AM for right foot wounds. Patient resting comfortably, NAD. No acute events overnight. Patient reports swelling to lower extremities is resolving. Patient offers no new complaints to wounds on his right foot. Dressing clean/dry/intact. Denies n/v/f/d/c/sob/lopez/cp. Objective - Vital Signs/Intake and Output Vital Signs (last 24 hours): Temp Pulse Resp BP Pulse Ox 98.2 F 74 20 92/52 L 97 07/20/18 06:00 07/20/18 09:17 07/20/18 06:00 07/20/18 09:17 07/20/18 06:00 - Medications Medications: Current Medications Aspirin (Aspirin Chewable) 81 mg PO DAILY [facility] Last Admin: 07/20/18 09:23 Dose: 81 mg Bacitracin (Bacitracin) 0 gm TOP Q12 [facility] Last Admin: 07/19/18 17:29 Dose: Not Given Furosemide (Lasix) 40 mg PO DAILY [facility] Last Admin: 07/20/18 09:16 Dose: Not Given Lactulose (Enulose) 20 gm PO DAILY [facility] Last Admin: 07/20/18 09:18 Dose: Not Given Metoprolol Tartrate (Lopressor) 25 mg PO BID [facility] Last Admin: 07/20/18 09:17 Dose: Not Given Nicotine (Nicoderm Cq) 1 patch TD DAILY [facility] Last Admin: 07/20/18 09:21 Dose: 1 patch Oxycodone HCl (Oxycontin Extended Release Tab) 40 mg PO TID [facility] Last Admin: 07/20/18 09:22 Dose: 40 mg Potassium Phos/Sodium Phos (Neutra-Phos) 1 pkt PO TID [facility] Last Admin: 07/20/18 09:24 Dose: 1 pkt Spironolactone (Aldactone) 25 mg PO BID [facility] Last Admin: 07/20/18 09:14 Dose: Not Given - Labs Labs: 07/20/18 07:30 07/20/18 07:30 PT 19.1 SECONDS (9.4-12.5) H 07/20/18 07:30 INR 1.69 07/20/18 07:30 APTT 33.6 Seconds (26.9-38.3) 07/20/18 07:30 - Constitutional Appears: Non-toxic, No Acute Distress - Extremities Exam Additional comments: RLE focused VASC: DP and PT pulses 2/4; cap refill <3 seconds to all digits; temp gradient warm to warm; +1 pitting edema noted to the LE DERM: 2 small 0.3 x 0.3 x 0.1 cm wounds noted at area of tongue of shoe dorsally, fibrotic tissue and scab formation appreciated, mild periwound erythema; healed scratches about the lower legs ORTHO: mild pain on palpation of the dorsum of the foot where wounds present NEURO: gross and protective sensation intact - Neurological Exam Neurological Exam: Alert, Awake, Oriented x3 - Psychiatric Exam Psychiatric exam: Normal Affect, Normal Mood Assessment and Plan - Assessment and Plan (Free Text) Assessment: 63M with pmhx of CAD s/p CABG, chronic LBP on oxycodone seen and evaluated for right foot dorsal wounds, infected Plan: Patient seen and evaluated alongside attending, Dr. Rabia MORATAYA, WBC 9.5 Continue local wound care: saline cleanse, optifoam -Bactroban ordered for QD dressing changes L foot wound culture: staph aureus Patient stable for discharge for foot wounds with PO abx Podiatry will continue to follow <Andre Camarillo - Last Filed: 07/23/18 16:31> Objective - Vital Signs/Intake and Output Vital Signs (last 24 hours): Temp Pulse Resp BP Pulse Ox 97.4 F L 72 18 101/64 98 07/23/18 11:32 07/23/18 11:32 07/23/18 11:32 07/23/18 14:20 07/23/18 06:00 Intake and Output: 07/23/18 07/23/18 06:59 18:59 Intake Total 600 Balance 600 - Medications Medications: Current Medications Aspirin (Aspirin Chewable) 81 mg PO DAILY [facility] Last Admin: 07/23/18 09:16 Dose: 81 mg Bacitracin (Bacitracin) 0 gm TOP Q12 [facility] Last Admin: 07/23/18 13:12 Dose: 1 applic Furosemide (Lasix) 40 mg PO DAILY [facility] Last Admin: 07/23/18 14:20 Dose: 40 mg Cefepime HCl (Maxipime 1gm) 1 gm in 100 mls @ 100 mls/hr IVPB Q12 [facility]; Protocol Stop: 07/31/18 10:01 Last Admin: 07/23/18 09:14 Dose: 100 mls/hr Lidocaine (Lidoderm) 1 ea TD DAILY [facility] Last Admin: 07/23/18 09:15 Dose: 1 ea Metoprolol Tartrate (Lopressor) 25 mg PO BID [facility] Last Admin: 07/23/18 09:14 Dose: Not Given Mupirocin (Bactroban Ointment) 0 gm TOP DAILY [facility] Last Admin: 07/23/18 14:26 Dose: Not Given Nicotine (Nicoderm Cq) 1 patch TD DAILY [facility] Last Admin: 07/23/18 09:15 Dose: 1 patch Oxycodone HCl (Oxycontin Extended Release Tab) 40 mg PO Q8 [facility] Last Admin: 07/23/18 13:12 Dose: 40 mg Potassium Phos/Sodium Phos (Neutra-Phos) 1 pkt PO TID [facility] Last Admin: 07/23/18 13:12 Dose: 1 pkt Spironolactone (Aldactone) 25 mg PO BID [facility] Last Admin: 07/23/18 09:16 Dose: Not Given - Labs Labs: 07/23/18 07:30 07/23/18 07:30 PT 17.9 SECONDS (9.4-12.5) H 07/23/18 07:30 INR 1.58 07/23/18 07:30 APTT 29.3 Seconds (26.9-38.3) 07/23/18 07:30 Attending/Attestation - Attestation I have personally seen and examined this patient.: Yes I have fully participated in the care of the patient.: Yes I have reviewed all pertinent clinical information, including history, physical exam and plan: Yes
[2018-07-20] MEDS: Bacitracin Ointment 30 GM TUBE TOP SCH (10:00)
--- NOTE | 2018-07-20 10:32 | CP.PCM.PN ---
<GermangloriaMaikel - Last Filed: 07/20/18 14:47> Subjective - Date & Time of Evaluation Date of Evaluation: 07/20/18 Time of Evaluation: 11:48 - Subjective Subjective: No acute events. No changes. Patient feeling well, no complaints. Tolerating diet. Objective - Vital Signs/Intake and Output Vital Signs (last 24 hours): Temp Pulse Resp BP Pulse Ox 98.2 F 74 20 92/52 L 97 07/20/18 06:00 07/20/18 09:17 07/20/18 06:00 07/20/18 09:17 07/20/18 06:00 - Medications Medications: Current Medications Aspirin (Aspirin Chewable) 81 mg PO DAILY [facility] Last Admin: 07/20/18 09:23 Dose: 81 mg Bacitracin (Bacitracin) 0 gm TOP Q12 [facility] Last Admin: 07/19/18 17:29 Dose: Not Given Furosemide (Lasix) 40 mg PO DAILY [facility] Last Admin: 07/20/18 09:16 Dose: Not Given Lactulose (Enulose) 20 gm PO DAILY [facility] Last Admin: 07/20/18 09:18 Dose: Not Given Metoprolol Tartrate (Lopressor) 25 mg PO BID [facility] Last Admin: 07/20/18 09:17 Dose: Not Given Mupirocin (Bactroban Ointment) 0 gm TOP DAILY [facility] Nicotine (Nicoderm Cq) 1 patch TD DAILY [facility] Last Admin: 07/20/18 09:21 Dose: 1 patch Oxycodone HCl (Oxycontin Extended Release Tab) 40 mg PO TID [facility] Last Admin: 07/20/18 09:22 Dose: 40 mg Potassium Phos/Sodium Phos (Neutra-Phos) 1 pkt PO TID [facility] Last Admin: 07/20/18 09:24 Dose: 1 pkt Spironolactone (Aldactone) 25 mg PO BID [facility] Last Admin: 07/20/18 09:14 Dose: Not Given - Labs Labs: 07/20/18 07:30 07/20/18 07:30 PT 19.1 SECONDS (9.4-12.5) H 07/20/18 07:30 INR 1.69 07/20/18 07:30 APTT 33.6 Seconds (26.9-38.3) 07/20/18 07:30 - Constitutional Appears: Non-toxic, No Acute Distress, Chronically Ill - Head Exam Head Exam: ATRAUMATIC, NORMAL INSPECTION - ENT Exam ENT Exam: Mucous Membranes Moist, Normal Exam - Respiratory Exam Respiratory Exam: Clear to Ausculation Bilateral, NORMAL BREATHING PATTERN - Cardiovascular Exam Cardiovascular Exam: REGULAR RHYTHM, +S1, +S2 - GI/Abdominal Exam GI & Abdominal Exam: Soft, Normal Bowel Sounds. absent: Tenderness - Extremities Exam Extremities Exam: Pedal Edema. absent: Normal Inspection - Psychiatric Exam Psychiatric exam: Normal Affect, Normal Mood - Skin Skin Exam: Normal Color, Warm Assessment and Plan - Assessment and Plan (Free Text) Assessment: 63 yo WF with CAD s/p CABG and chronic low back pain presenting with worsening LE edema, found to have abnormal liver tests and elevated INR. # Acute Liver Failure: Diagnostic criteria met of Encephalopathy and INR > 1.5 in absence of prior liver disease. Unclear etiology at this point with main differential of acute viral hepatitis, ischemia, drugs or acetaminophen induced. Pt reportedly on oxycodone alone without acetaminophen. Given h/o CAD, ischemia possible but BP not low here and does not seem like acute TN. Unknown if risk factors for acute viral hep. Echogenic liver on Abd US, CT (without contrast) without explanation of clinical presentation. Pt reports took some kind of "vitamin/supplement to help feel better/improve energy" for several days prior to presentation, raising suspicion for drug induced liver injury. # Acute Severe Hepatitis: AST and ALT > 1 k with mildly elevated bili and normal AP. Improving. Plan: - s/p NAC infusion - Echo with BiV CHF, 4 chamber enlargement, LVEF 25% and signs of Pulm HTN; congestive hepatopathy? - Abd Duplex without PVT nor signs of Budd-Chiari - Primary team to decided whether to proceed with transfer to [facility] - Cardiology consulted - Viral Hep Serologies negative as well as broad Autoimmune and serologic workup. - Lactulose PO - Consider Pulmonology and Hematology consult - Peripheral smear given anemia and worsening thrombocytopenia Pt discussed with Dr. Rizo; please see attestation for further recs/changes. <Deshaun Rizo V - Last Filed: 07/21/18 00:13> Objective - Vital Signs/Intake and Output Vital Signs (last 24 hours): Temp Pulse Resp BP Pulse Ox 98.7 F 41 L 18 96/52 L 100 07/20/18 21:24 07/20/18 21:24 07/20/18 21:24 07/20/18 21:24 07/20/18 21:24 - Medications Medications: Current Medications Aspirin (Aspirin Chewable) 81 mg PO DAILY [facility] Last Admin: 07/20/18 09:23 Dose: 81 mg Bacitracin (Bacitracin) 0 gm TOP Q12 [facility] Last Admin: 07/20/18 10:00 Dose: 1 applic Furosemide (Lasix) 40 mg PO DAILY [facility] Last Admin: 07/20/18 18:17 Dose: 40 mg Ceftriaxone Sodium (Rocephin 1 Gram Ivpb) 1 gm in 100 mls @ 100 mls/hr IVPB DAILY [facility]; Protocol Last Admin: 07/20/18 13:28 Dose: 100 mls/hr Lactulose (Enulose) 20 gm PO DAILY [facility] Last Admin: 07/20/18 09:18 Dose: Not Given Metoprolol Tartrate (Lopressor) 25 mg PO BID [facility] Last Admin: 07/20/18 18:11 Dose: 25 mg Mupirocin (Bactroban Ointment) 0 gm TOP DAILY [facility] Last Admin: 07/20/18 13:27 Dose: 1 applic Nicotine (Nicoderm Cq) 1 patch TD DAILY [facility] Last Admin: 07/20/18 09:21 Dose: 1 patch Oxycodone HCl (Oxycontin Extended Release Tab) 40 mg PO TID [facility] Last Admin: 07/20/18 18:09 Dose: 40 mg Potassium Phos/Sodium Phos (Neutra-Phos) 1 pkt PO TID [facility] Last Admin: 07/20/18 18:09 Dose: 1 pkt Spironolactone (Aldactone) 25 mg PO BID [facility] Last Admin: 07/20/18 18:11 Dose: 25 mg - Labs Labs: 07/20/18 07:30 07/20/18 07:30 PT 19.1 SECONDS (9.4-12.5) H 07/20/18 07:30 INR 1.69 07/20/18 07:30 APTT 33.6 Seconds (26.9-38.3) 07/20/18 07:30 Attending/Attestation - Attestation I have personally seen and examined this patient.: Yes I have fully participated in the care of the patient.: Yes I have reviewed all pertinent clinical information, including history, physical exam and plan: Yes Notes (Text): This is an addendum to GI progress report dictated by the GI Fellow. The patient was seen and examined earlier. Medical records, lab studies, imagings were reviewed. Last 24 hours events reviewed. Agreed with the above treatment plan as outlined in GI Fellow 's notes with the addition of the following Patient is clinically improving Thrombocytopenic On exam abdomen soft nontender The etiology for his acute liver failure is unclear Patient does have pulmonary hypertension Acute worsening of PTH as an etiology for acute liver failure has to be considered Follow-up and LFT Will discuss with PCP regarding pulmonary evaluation 07/21/18 00:08
[2018-07-20] MEDS ORDERED: cefTRIAXone 1 gm 1 GM/100 ML BAG IVPB SCH (12:41)
[2018-07-20] MEDS: Mupirocin 2% Ointment 15 GM TUBE TOP SCH (13:27)
--- NOTE | 2018-07-20 23:01 | CP.PCM.PN ---
Subjective - Date & Time of Evaluation Date of Evaluation: 07/21/18 Time of Evaluation: 02:58 - Subjective Subjective: PGY1 Progress Note for House Doc S: - Paged from nurse that patient was short of breath. - Patient was examined and he was not subjectively c/o shortness of breath. However, vital signs showed HR 41 and BP 96/52. - Patient also endorsed back pain - chronic in nature for which he usually takes oxycodone O: - Patient has some mild crackles at lung bases. - Otherwise, cardio exam is RRR, normal s1/s2. A - Bradycardia and Hypotension - Chronic low back pain P - EKG stat was ordered - CXR stat was ordered - 250 ml NS bolus was ordered given cardiac hx, improvement in BP - most recent BP 111/61, continue to monitor - Pending transfer to telemetry when bed is available - c/w nasal cannula - troponin stat ordered - cbc and cmp stat ordered - Lidoderm patch for chronic back pain. D/w pt that because of the hypotension and low HR we will hold his oxycodone medication. He verbalized understanding. Also d/w patient's family member, Carmel Alexandre, via telephone. Objective - Vital Signs/Intake and Output Vital Signs (last 24 hours): Temp Pulse Resp BP Pulse Ox 98.7 F 41 L 18 96/52 L 100 07/20/18 21:24 07/20/18 21:24 07/20/18 21:24 07/20/18 21:24 07/20/18 21:24 - Medications Medications: Current Medications Aspirin (Aspirin Chewable) 81 mg PO DAILY [facility] Last Admin: 07/20/18 09:23 Dose: 81 mg Bacitracin (Bacitracin) 0 gm TOP Q12 [facility] Last Admin: 07/20/18 10:00 Dose: 1 applic Furosemide (Lasix) 40 mg PO DAILY [facility] Last Admin: 07/20/18 18:17 Dose: 40 mg Ceftriaxone Sodium (Rocephin 1 Gram Ivpb) 1 gm in 100 mls @ 100 mls/hr IVPB DAILY [facility]; Protocol Last Admin: 07/20/18 13:28 Dose: 100 mls/hr Lactulose (Enulose) 20 gm PO DAILY [facility] Last Admin: 07/20/18 09:18 Dose: Not Given Metoprolol Tartrate (Lopressor) 25 mg PO BID [facility] Last Admin: 07/20/18 18:11 Dose: 25 mg Mupirocin (Bactroban Ointment) 0 gm TOP DAILY [facility] Last Admin: 07/20/18 13:27 Dose: 1 applic Nicotine (Nicoderm Cq) 1 patch TD DAILY [facility] Last Admin: 07/20/18 09:21 Dose: 1 patch Oxycodone HCl (Oxycontin Extended Release Tab) 40 mg PO TID [facility] Last Admin: 07/20/18 18:09 Dose: 40 mg Potassium Phos/Sodium Phos (Neutra-Phos) 1 pkt PO TID [facility] Last Admin: 07/20/18 18:09 Dose: 1 pkt Spironolactone (Aldactone) 25 mg PO BID [facility] Last Admin: 07/20/18 18:11 Dose: 25 mg - Labs Labs: 07/20/18 07:30 07/20/18 07:30 PT 19.1 SECONDS (9.4-12.5) H 07/20/18 07:30 INR 1.69 07/20/18 07:30 APTT 33.6 Seconds (26.9-38.3) 07/20/18 07:30
[2018-07-21] MEDS ORDERED: Sodium Chloride 0.9% 1,000 ML IV STA (00:08)
[2018-07-21 00:34] LABS: BASO # 0.02 K/mm3 (0.0-2.0); BASO % 0.2 % (0.0-3.0); HEMOGLOBIN 13.7 g/dL (14.0-18.0); LYMPH # 1.6 (1.2-3.4); LYMPH % 12.6 % (22.0-35.0); MEAN CELL VOLUME 90.2 fl (80.0-105.0); MEAN CORPUSCULAR HEMOGLOBIN 29.7 pg (25.0-35.0); MEAN CORPUSCULAR HGB CONC 32.9 g/dl (31.0-37.0); MONO # 1.6 (0.1-0.6); MONO % 12.6 % (1.0-6.0); RBC 4.61 10^6/uL (3.5-6.1); RED CELL DISTRIBUTION WIDTH 14.7 % (11.5-14.5); WHITE BLOOD COUNT 12.7 10^3/uL (4.5-11.0)
[2018-07-21 00:38] LABS: PLATELET COUNT 41 10^3/uL (120.0-450.0)
[2018-07-21 00:57] LABS: TROPONIN I 0.03 ng/mL
[2018-07-21 01:01] LABS: ALBUMIN 3.3 g/dL (3.0-4.8); ALT/SGPT 800 U/L (7-56); AST/SGOT 216 U/L (17-59); BLOOD UREA NITROGEN 32 mg/dL (7-21); CALCIUM 8.5 mg/dL (8.4-10.5); GFR NON-AFRICAN AMERICAN > 60
[2018-07-21] MEDS: Bacitracin Ointment 30 GM TUBE TOP SCH ×3 (02:17→22:22)
[2018-07-21] MEDS ORDERED: Lidocaine 5% Patch TD ONE (02:45)
--- NOTE | 2018-07-21 07:08 | CP.PCM.PN ---
<Emmie Diaz - Last Filed: 07/21/18 12:03> Subjective - Date & Time of Evaluation Date of Evaluation: 07/21/18 Time of Evaluation: 08:00 - Subjective Subjective: Pgy3 Medicine progress note for Dr. Fontenot Patient seen and examined at bedside. Overnight events noted. Patient resting comfortably this AM with enhanced obs in palce. Upon speaking with sister Carmel, she reported patient called her three times overnight saying he was in pain and that he was confused and thought it was daytime; sister explained to him that patient has his home pain regimen ordered. This morning patient is aware he was transferred to [facility] for low HR and low BP. He denied any headache, dizziness, chest pain, SOB, cough, abd pain, nausea, vomiting, bowel/bladder complaints, pain in his legs bilaterally. Patient complained that his b/l LE is swollen again. Objective - Vital Signs/Intake and Output Vital Signs (last 24 hours): Temp Pulse Resp BP Pulse Ox 98.7 F 41 L 18 96/52 L 100 07/20/18 21:24 07/20/18 21:24 07/20/18 21:24 07/20/18 21:24 07/20/18 21:24 - Medications Medications: Current Medications Aspirin (Aspirin Chewable) 81 mg PO DAILY [facility] Last Admin: 07/20/18 09:23 Dose: 81 mg Bacitracin (Bacitracin) 0 gm TOP Q12 [facility] Last Admin: 07/21/18 02:17 Dose: Not Given Furosemide (Lasix) 40 mg PO DAILY [facility] Last Admin: 07/20/18 18:17 Dose: 40 mg Ceftriaxone Sodium (Rocephin 1 Gram Ivpb) 1 gm in 100 mls @ 100 mls/hr IVPB DAILY [facility]; Protocol Last Admin: 07/20/18 13:28 Dose: 100 mls/hr Lactulose (Enulose) 20 gm PO DAILY [facility] Last Admin: 07/20/18 09:18 Dose: Not Given Lidocaine (Lidoderm) 1 ea TD DAILY [facility] Metoprolol Tartrate (Lopressor) 25 mg PO BID [facility] Last Admin: 07/20/18 18:11 Dose: 25 mg Mupirocin (Bactroban Ointment) 0 gm TOP DAILY [facility] Last Admin: 07/20/18 13:27 Dose: 1 applic Nicotine (Nicoderm Cq) 1 patch TD DAILY [facility] Last Admin: 07/20/18 09:21 Dose: 1 patch Oxycodone HCl (Oxycontin Extended Release Tab) 40 mg PO TID [facility] Last Admin: 07/20/18 18:09 Dose: 40 mg Potassium Phos/Sodium Phos (Neutra-Phos) 1 pkt PO TID [facility] Last Admin: 07/20/18 18:09 Dose: 1 pkt Spironolactone (Aldactone) 25 mg PO BID [facility] Last Admin: 07/20/18 18:11 Dose: 25 mg - Labs Labs: 07/21/18 00:15 07/21/18 00:15 PT 19.1 SECONDS (9.4-12.5) H 07/20/18 07:30 INR 1.69 07/20/18 07:30 APTT 33.6 Seconds (26.9-38.3) 07/20/18 07:30 - Constitutional Appears: No Acute Distress, Unkempt, Chronically Ill - Head Exam Head Exam: ATRAUMATIC, NORMAL INSPECTION, NORMOCEPHALIC - Eye Exam Eye Exam: EOMI, Normal appearance. absent: Conjunctival injection, Scleral icterus - ENT Exam ENT Exam: Mucous Membranes Moist - Neck Exam Neck Exam: Full ROM. absent: Lymphadenopathy - Respiratory Exam Respiratory Exam: NORMAL BREATHING PATTERN. absent: Accessory Muscle Use, Rales, Rhonchi, Wheezes, Respiratory Distress - Cardiovascular Exam Cardiovascular Exam: Bradycardia, +S1, +S2. absent: Murmur - GI/Abdominal Exam GI & Abdominal Exam: Soft, Normal Bowel Sounds. absent: Distended, Firm, Guarding, Rigid - Extremities Exam Extremities Exam: Pedal Edema (+3 b/l LE- worse than yesterday) Additional comments: b/l LE healing wounds noted - Back Exam Back Exam: NORMAL INSPECTION. absent: rash noted - Neurological Exam Neurological Exam: Alert, Awake - Psychiatric Exam Psychiatric exam: Normal Affect, Normal Mood - Skin Skin Exam: Dry, Intact, Normal Color, Warm Assessment and Plan - Assessment and Plan (Free Text) Assessment: 1. Acute liver failure- improving 2. Acute systolic CHF 3. Bilateral lower extremity edema- improving 4. Thrombocytopenia 5. Elevated INR not on anticoag- improving 6. Altered mental status on presentation- now resolved 7. Elevated troponin- resolved 8. CAD s/p CABG 9. Tobacco use disorder 10. Chronic opioid use 11. Medication noncompliance 12. acute UTI Plan: Patient's vitals, imaging and blood work noted in chart. Overnight events noted and reviewed. Lasix and Lopressor on hold. Patient's urine culture +Klebsiella. This could be source of delirium however encephalopathy is still strong on our differential. Patient started on Cefepime at this time. LFTs continuing to trend down. As of now, patients hep panel unremarkable and broad autoimmune workup negative. Abdominal u/s and CT Abdomen/pelvis reviewed. Echo revealed EF 25% with signs of pulmonary HTN and 4 chamber enlargement. Liver injury suspect ischemic in nature in light of patient's low EF, BP, and HR. Patient is candidate for ICD but will need a repeat cardiac cath once platelet count improves. Also suspect congestive hepatopathy. Plt 33 this AM. Pending peripheral smear and Heme-onc reccs. Patient's bilateral LE u/s negative for DVT. Procalcitonin elevation likely secondary to acute liver failure. Patient has extensive smoking history; on Nicoderm patch qd. Patient also on chronic opioids- adjusted dose to home regimen oxycodone ER 40mg tid after lengthy conversation with sister Carmel. As patient follows very unhealthy low nutritional diet- Director Stage on board to work counselor patient. Podiatry on board for LE wounds- as per podiatry patient can be discharged on PO abx for wounds. Vitaly menjivar also counseled thoroughly on the importance of medication compliance upon discharge. Spoke to patient's sister Carmel [phone] at length regarding patient and all questions and concerns were answered. Discussed with Dr. Po Diaz PGY3 <Antonio Fontenot S - Last Filed: 07/21/18 21:55> Objective - Vital Signs/Intake and Output Vital Signs (last 24 hours): Temp Pulse Resp BP Pulse Ox 98.2 F 77 18 101/69 97 07/21/18 18:00 07/21/18 18:00 07/21/18 18:00 07/21/18 18:00 07/21/18 18:00 Intake and Output: 07/21/18 07/22/18 18:59 06:59 Intake Total 2370 Output Total 1150 Balance 1220 - Medications Medications: Current Medications Aspirin (Aspirin Chewable) 81 mg PO DAILY [facility] Last Admin: 07/21/18 10:09 Dose: 81 mg Bacitracin (Bacitracin) 0 gm TOP Q12 [facility] Last Admin: 07/21/18 10:09 Dose: 1 applic Furosemide (Lasix) 40 mg PO DAILY [facility] Last Admin: 07/20/18 18:17 Dose: 40 mg Cefepime HCl (Maxipime 1gm) 1 gm in 100 mls @ 100 mls/hr IVPB Q12 [facility]; Protocol Stop: 07/31/18 10:01 Last Admin: 07/21/18 21:21 Dose: 100 mls/hr Lactulose (Enulose) 20 gm PO DAILY [facility] Last Admin: 07/21/18 10:08 Dose: 20 gm Lidocaine (Lidoderm) 1 ea TD DAILY [facility] Last Admin: 07/21/18 10:08 Dose: 1 ea Metoprolol Tartrate (Lopressor) 25 mg PO BID [facility] Last Admin: 07/20/18 18:11 Dose: 25 mg Mupirocin (Bactroban Ointment) 0 gm TOP DAILY [facility] Last Admin: 07/21/18 10:10 Dose: 1 applic Nicotine (Nicoderm Cq) 1 patch TD DAILY [facility] Last Admin: 07/21/18 10:07 Dose: 1 patch Oxycodone HCl (Oxycontin Extended Release Tab) 40 mg PO TID [facility] Last Admin: 07/21/18 17:26 Dose: 40 mg Potassium Phos/Sodium Phos (Neutra-Phos) 1 pkt PO TID [facility] Last Admin: 07/21/18 17:27 Dose: 1 pkt Spironolactone (Aldactone) 25 mg PO BID [facility] Last Admin: 07/21/18 17:26 Dose: 25 mg - Labs Labs: 07/21/18 06:50 07/21/18 06:50 PT 22.1 SECONDS (9.4-12.5) H 07/21/18 06:50 INR 1.96 07/21/18 06:50 APTT 33.2 Seconds (26.9-38.3) 07/21/18 06:50 Assessment and Plan - Assessment and Plan (Free Text) Plan: Pt seen and examined by me. I have reviewed the note of the medical intern and I agree with it. I have discussed the assessment and plan with the resident. I have reviewed the medications and the last labs.Pt has improved encepholopathy. Thrombocytopenia is stable. CHF- acute with systolic dysfunction but has improved. Pt is on Oxycodone for pain. Nicoderm for smoking. BRANDEN is resolved. Coagulopathy is improved. Bradycardia with no symptoms. Hold Metoprolol for now. May need TCU evaluation.
[2018-07-21 07:12] LABS: BASO # 0.02 K/mm3 (0.0-2.0); BASO % 0.2 % (0.0-3.0); EOS % 0.1 % (1.5-5.0); HEMOGLOBIN 13.3 g/dL (14.0-18.0); LYMPH # 2.1 (1.2-3.4); LYMPH % 21.5 % (22.0-35.0); MEAN CORPUSCULAR HEMOGLOBIN 29.5 pg (25.0-35.0); MEAN CORPUSCULAR HGB CONC 32.8 g/dl (31.0-37.0); MONO # 1.3 (0.1-0.6); MONO % 12.8 % (1.0-6.0); RBC 4.51 10^6/uL (3.5-6.1); RED CELL DISTRIBUTION WIDTH 14.6 % (11.5-14.5)
[2018-07-21 07:25] LABS: ALB/GLOB RATIO 0.9 (1.1-1.8); ALBUMIN 2.8 g/dL (3.0-4.8); ALT/SGPT 679 U/L (7-56); AST/SGOT 160 U/L (17-59); BLOOD UREA NITROGEN 32 mg/dL (7-21); CALCIUM 8.1 mg/dL (8.4-10.5); GFR NON-AFRICAN AMERICAN > 60
[2018-07-21 07:28] LABS: INR 1.96; PARTIAL THROMBOPLASTIN TIME 33.2 Seconds (26.9-38.3); PROTHROMBIN TIME 22.1 SECONDS (9.4-12.5)
[2018-07-21 07:35] LABS: PLATELET COUNT 33 10^3/uL (120.0-450.0)
[2018-07-21 07:37] LABS: WHITE BLOOD COUNT 9.8 10^3/uL (4.5-11.0)
[2018-07-21] MEDS: oxyCODONE 20 mg ER Tab (oxyCONTIN) PO SCH ×3 (10:08→17:26)
[2018-07-21] MEDS: Potassium & Sodium Phosphate PO SCH ×3 (10:08→17:27)
[2018-07-21] MEDS: Lidocaine 5% Patch TD SCH (10:08)
[2018-07-21] MEDS: Cefepime 1gm in NS 100ml 1 GM/100 ML BAG IVPB SCH ×2 (10:10→21:21)
[2018-07-21] MEDS: Mupirocin 2% Ointment 15 GM TUBE TOP SCH (10:10)
--- NOTE | 2018-07-21 11:19 | RAD ---
Date of service: 07/21/2018 HISTORY: sob COMPARISON: Comparison is made with the previous study dated 07/19/2018 FINDINGS: LUNGS: Interval mild improvement in the previously noted hazy patchy opacities in the lungs since the previous exam. PLEURA: No significant pleural effusion identified, no pneumothorax apparent. CARDIOVASCULAR: The cardiac silhouette is mildly enlarged. Foci of atherosclerotic calcification noted at the aortic knob. The patient is status post prior sternotomy. Mild pulmonary vascular congestion. OSSEOUS STRUCTURES: No significant abnormalities. VISUALIZED UPPER ABDOMEN: Normal. OTHER FINDINGS: None. IMPRESSION: Interval improvement in the previously seen patchy ground-glass and hazy opacities in the lungs.
--- NOTE | 2018-07-21 12:03 | CP.PCM.PN ---
Subjective - Date & Time of Evaluation Date of Evaluation: 07/21/18 Time of Evaluation: 11:59 - Subjective Subjective: Patient is doing well today despite blood pressure and bradycardia last night. He was moved to [facility] due to the abnormal vitals and metoprolol was stopped. No complaints today. Objective - Vital Signs/Intake and Output Vital Signs (last 24 hours): Temp Pulse Resp BP Pulse Ox 98.7 F 41 L 18 96/52 L 100 07/20/18 21:24 07/20/18 21:24 07/20/18 21:24 07/20/18 21:24 07/20/18 21:24 - Medications Medications: Current Medications Aspirin (Aspirin Chewable) 81 mg PO DAILY [facility] Last Admin: 07/21/18 10:09 Dose: 81 mg Bacitracin (Bacitracin) 0 gm TOP Q12 [facility] Last Admin: 07/21/18 10:09 Dose: 1 applic Furosemide (Lasix) 40 mg PO DAILY [facility] Last Admin: 07/20/18 18:17 Dose: 40 mg Cefepime HCl (Maxipime 1gm) 1 gm in 100 mls @ 100 mls/hr IVPB Q12 [facility]; Protocol Stop: 07/31/18 10:01 Last Admin: 07/21/18 10:10 Dose: 100 mls/hr Lactulose (Enulose) 20 gm PO DAILY [facility] Last Admin: 07/21/18 10:08 Dose: 20 gm Lidocaine (Lidoderm) 1 ea TD DAILY [facility] Last Admin: 07/21/18 10:08 Dose: 1 ea Metoprolol Tartrate (Lopressor) 25 mg PO BID [facility] Last Admin: 07/20/18 18:11 Dose: 25 mg Mupirocin (Bactroban Ointment) 0 gm TOP DAILY [facility] Last Admin: 07/21/18 10:10 Dose: 1 applic Nicotine (Nicoderm Cq) 1 patch TD DAILY [facility] Last Admin: 07/21/18 10:07 Dose: 1 patch Oxycodone HCl (Oxycontin Extended Release Tab) 40 mg PO TID [facility] Last Admin: 07/21/18 10:08 Dose: 40 mg Potassium Phos/Sodium Phos (Neutra-Phos) 1 pkt PO TID [facility] Last Admin: 07/21/18 10:08 Dose: 1 pkt Spironolactone (Aldactone) 25 mg PO BID [facility] Last Admin: 07/21/18 10:09 Dose: 25 mg - Labs Labs: 07/21/18 06:50 07/21/18 06:50 PT 22.1 SECONDS (9.4-12.5) H 07/21/18 06:50 INR 1.96 07/21/18 06:50 APTT 33.2 Seconds (26.9-38.3) 07/21/18 06:50 - Constitutional Appears: Non-toxic, No Acute Distress - Head Exam Head Exam: ATRAUMATIC, NORMAL INSPECTION - Eye Exam Eye Exam: EOMI, Normal appearance - ENT Exam ENT Exam: Mucous Membranes Moist, Normal Exam - Respiratory Exam Respiratory Exam: Clear to Ausculation Bilateral, NORMAL BREATHING PATTERN - Cardiovascular Exam Cardiovascular Exam: REGULAR RHYTHM, +S1, +S2 Additional comments: +Hepatojugular reflex - GI/Abdominal Exam GI & Abdominal Exam: Soft, Normal Bowel Sounds. absent: Tenderness - Extremities Exam Extremities Exam: Pedal Edema. absent: Normal Inspection - Neurological Exam Neurological Exam: Alert, Awake, Oriented x3 - Psychiatric Exam Psychiatric exam: Normal Affect, Normal Mood - Skin Skin Exam: Normal Color, Warm Assessment and Plan - Assessment and Plan (Free Text) Assessment: 63 yo WF with CAD s/p CABG and chronic low back pain presenting with worsening LE edema, found to have abnormal liver tests and elevated INR. # Acute Liver Failure: Diagnostic criteria met of Encephalopathy and INR > 1.5 in absence of prior liver disease. Unclear etiology at this point with main differential of acute viral hepatitis, ischemia, drugs or acetaminophen induced. Pt reportedly on oxycodone alone without acetaminophen. Given h/o CAD, ischemia possible but BP not low here and does not seem like acute CT. Unknown if risk factors for acute viral hep. Echogenic liver on Abd US, CT (without con trast) without explanation of clinical presentation. Pt reports took some kind of "vitamin/supplement to help feel better/improve energy" for several days prior to presentation, raising suspicion for drug induced liver injury. # Acute Severe Hepatitis: AST and ALT > 1 k with mildly elevated bili and normal AP. Improving. Plan: - s/p NAC infusion - Echo with BiV CHF, 4 chamber enlargement, LVEF 25% and signs of Pulm HTN; congestive hepatopathy? + Hepatojugular reflex. - Abd Duplex without PVT nor signs of Budd-Chiari - Primary team to decided whether to proceed with transfer to [facility] - Cardiology consulted - Viral Hep Serologies negative as well as broad Autoimmune and serologic workup. - Lactulose PO - Consider Pulmonology and Hematology consult - Peripheral smear given anemia and worsening thrombocytopenia Pt discussed with Dr. Rizo; please see attestation for further recs/changes.
--- NOTE | 2018-07-21 14:28 | CP.PCM.PN ---
<Juliocesar Leon - Last Filed: 07/21/18 22:59> Subjective - Date & Time of Evaluation Date of Evaluation: 07/21/18 Time of Evaluation: 14:28 - Subjective Subjective: Podiatry Progress Note - Drs. Altman/Rabia 63M seen and evaluated this AM for right foot wounds. Patient resting comfortably, NAD. No acute events overnight. No new complaints to right foot wound; states swelling continues to resolve. Denies n/v/f/d/c/sob/lopez/cp. Objective - Vital Signs/Intake and Output Vital Signs (last 24 hours): Temp Pulse Resp BP Pulse Ox 97.8 F 73 18 101/69 100 07/21/18 12:00 07/21/18 12:00 07/21/18 12:00 07/21/18 12:00 07/20/18 21:24 - Medications Medications: Current Medications Aspirin (Aspirin Chewable) 81 mg PO DAILY [facility] Last Admin: 07/21/18 10:09 Dose: 81 mg Bacitracin (Bacitracin) 0 gm TOP Q12 [facility] Last Admin: 07/21/18 10:09 Dose: 1 applic Furosemide (Lasix) 40 mg PO DAILY [facility] Last Admin: 07/20/18 18:17 Dose: 40 mg Cefepime HCl (Maxipime 1gm) 1 gm in 100 mls @ 100 mls/hr IVPB Q12 [facility]; Protocol Stop: 07/31/18 10:01 Last Admin: 07/21/18 10:10 Dose: 100 mls/hr Lactulose (Enulose) 20 gm PO DAILY [facility] Last Admin: 07/21/18 10:08 Dose: 20 gm Lidocaine (Lidoderm) 1 ea TD DAILY [facility] Last Admin: 07/21/18 10:08 Dose: 1 ea Metoprolol Tartrate (Lopressor) 25 mg PO BID [facility] Last Admin: 07/20/18 18:11 Dose: 25 mg Mupirocin (Bactroban Ointment) 0 gm TOP DAILY [facility] Last Admin: 07/21/18 10:10 Dose: 1 applic Nicotine (Nicoderm Cq) 1 patch TD DAILY [facility] Last Admin: 07/21/18 10:07 Dose: 1 patch Oxycodone HCl (Oxycontin Extended Release Tab) 40 mg PO TID [facility] Last Admin: 07/21/18 13:45 Dose: 40 mg Potassium Phos/Sodium Phos (Neutra-Phos) 1 pkt PO TID [facility] Last Admin: 07/21/18 13:46 Dose: 1 pkt Spironolactone (Aldactone) 25 mg PO BID [facility] Last Admin: 07/21/18 10:09 Dose: 25 mg - Labs Labs: 07/21/18 06:50 07/21/18 06:50 PT 22.1 SECONDS (9.4-12.5) H 07/21/18 06:50 INR 1.96 07/21/18 06:50 APTT 33.2 Seconds (26.9-38.3) 07/21/18 06:50 - Constitutional Appears: Non-toxic, No Acute Distress - Extremities Exam Additional comments: RLE focused VASC: DP and PT pulses 2/4; cap refill <3 seconds to all digits; temp gradient warm to warm; +1 pitting edema noted to the LE DERM: 2 small 0.3 x 0.3 x 0.1 cm wounds noted at area of tongue of shoe dorsally, fibrotic tissue and scab formation appreciated, mild periwound erythema; healed scratches about the lower legs ORTHO: mild pain on palpation of the dorsum of the foot where wounds present NEURO: gross and protective sensation intact - Neurological Exam Neurological Exam: Alert, Awake, Oriented x3 - Psychiatric Exam Psychiatric exam: Normal Affect, Normal Mood Assessment and Plan - Assessment and Plan (Free Text) Assessment: 63M with pmhx of CAD s/p CABG, chronic LBP on oxycodone seen and evaluated for right foot dorsal wounds, infected Plan: Patient seen and evaluated Discussed with attending, Dr. Anupama MORATAYA, WBC 9.8 Continue local wound care: saline cleanse, bactroban, optifoam L foot wound culture: staph aureus Patient stable for discharge for foot wounds with PO abx Podiatry will continue to follow <Ysabel Altman - Last Filed: 07/22/18 08:03> Objective - Vital Signs/Intake and Output Vital Signs (last 24 hours): Temp Pulse Resp BP Pulse Ox 97.8 F 79 19 118/70 95 07/22/18 00:00 07/22/18 00:00 07/22/18 00:00 07/22/18 00:00 07/22/18 00:00 Intake and Output: 07/22/18 07/22/18 06:59 18:59 Intake Total 350 Balance 350 - Medications Medications: Current Medications Aspirin (Aspirin Chewable) 81 mg PO DAILY [facility] Last Admin: 07/21/18 10:09 Dose: 81 mg Bacitracin (Bacitracin) 0 gm TOP Q12 [facility] Last Admin: 07/21/18 22:22 Dose: 1 applic Furosemide (Lasix) 40 mg PO DAILY [facility] Last Admin: 07/20/18 18:17 Dose: 40 mg Cefepime HCl (Maxipime 1gm) 1 gm in 100 mls @ 100 mls/hr IVPB Q12 [facility]; Protocol Stop: 07/31/18 10:01 Last Admin: 07/21/18 21:21 Dose: 100 mls/hr Lactulose (Enulose) 20 gm PO DAILY [facility] Last Admin: 07/21/18 10:08 Dose: 20 gm Metoprolol Tartrate (Lopressor) 25 mg PO BID [facility] Last Admin: 07/20/18 18:11 Dose: 25 mg Mupirocin (Bactroban Ointment) 0 gm TOP DAILY [facility] Last Admin: 07/21/18 10:10 Dose: 1 applic Nicotine (Nicoderm Cq) 1 patch TD DAILY [facility] Last Admin: 07/21/18 10:07 Dose: 1 patch Oxycodone HCl (Oxycontin Extended Release Tab) 40 mg PO TID [facility] Last Admin: 07/21/18 17:26 Dose: 40 mg Potassium Phos/Sodium Phos (Neutra-Phos) 1 pkt PO TID [facility] Last Admin: 07/21/18 17:27 Dose: 1 pkt Spironolactone (Aldactone) 25 mg PO BID [facility] Last Admin: 07/21/18 17:26 Dose: 25 mg - Labs Labs: 07/22/18 07:20 07/21/18 06:50 PT 18.7 SECONDS (9.4-12.5) H 07/22/18 07:20 INR 1.65 07/22/18 07:20 APTT 32.2 Seconds (26.9-38.3) 07/22/18 07:20 Attending/Attestation - Attestation I have personally seen and examined this patient.: Yes I have fully participated in the care of the patient.: Yes I have reviewed all pertinent clinical information, including history, physical exam and plan: Yes
--- NOTE | 2018-07-21 18:16 | PN ---
DATE: 07/23/2018 SUBJECTIVE: The patient is seen lying in bed on telemetry. He was transferred back to telemetry after an episode of transient hypotension and bradycardia. This occurred after dispensing his beta-zeus dose. He is currently comfortable. He has had and continues to have frequent PVCs and recently had a 15-beat run of ventricular tachycardia. His peripheral edema has worsened again. He remains severely thrombocytopenic. MEDICATIONS: His current medications include spironolactone 25 mg b.i.d., aspirin, Lasix 40 mg daily, metoprolol 25 mg b.i.d. which is on hold, cefepime, Neutra-Phos, Nicoderm patch and oxycodone. OBJECTIVE: GENERAL: He is a disheveled-appearing middle-aged man. VITAL SIGNS: Blood pressure is 100/70, with pulse of 70 with sinus rhythm and frequent PVCs, respirations are 16. He is afebrile. HEENT: No JVD. CHEST: Bilateral scattered rhonchi. HEART: PMI displaced laterally with soft tones noted. ABDOMEN: Soft and nontender with normoactive bowel sounds. EXTREMITIES: 2 to 3+ leg edema present. DIAGNOSTIC DATA: Troponin 0.03. Chest x-ray reveals enlarged cardiac silhouette with decreased vascular markings. Potassium 4.4, BUN and creatinine 32 and 0.7. White count 9.8, hemoglobin and hematocrit 13.3 and 40.6 with platelet count of 33,000. INR 1.96. AST and ALT 160 and 679. IMPRESSION: 1. Transient bradycardia and hypotension, possibly exacerbated by beta zeus use as well as diuretics. 2. Severe left ventricle dysfunction. 3. Severe thrombocytopenia. Possible underlying liver disease. 4. Nonsustained ventricular tachycardia. RECOMMENDATIONS: His beta-zeus will be placed on hold for now. Diuretic therapy will be held as well. His management is problematic as he should undergo repeat cardiac catheterization. His last study was in 2016. Unfortunately the use of antiplatelet therapy will be limited and the ability to perform intracoronary stenting would also be limited, given his severe thrombocytopenia and risk of bleeding. Given his LV dysfunction and nonsustained ventricular tachycardia, he is a candidate for an ICD implant; however, his hematologic issues need to be addressed first. He will need more aggressive diuresis once his blood pressure is improved. Intravenous parental support may be necessary. We will continue to follow and make further recommendations as appropriate. Joss Hayes MD
--- NOTE | 2018-07-21 20:23 | CARD ---
APPROVED REPORT Date of service: 07/21/2018 EKG Measurement Heart [id number] <Conclusion> Sinus rhythm with frequent premature ventricular complexes in a pattern of bigeminy Possible Left atrial enlargement Nonspecific intraventricular conduction delay T wave abnormality, consider lateral ischemia Abnormal ECG
[2018-07-22] MEDS: Lidocaine 5% Patch TD SCH ×2 (01:19→11:35)
[2018-07-22] MEDS ORDERED: Lidocaine 5% Patch TD ONE (01:32)
--- NOTE | 2018-07-22 05:37 | CP.PCM.PN ---
<Emmie Diaz - Last Filed: 07/22/18 12:25> Subjective - Date & Time of Evaluation Date of Evaluation: 07/22/18 Time of Evaluation: 07:45 - Subjective Subjective: Pgy3 Medicine progress note for Dr. Fontenot Patient seen and examined at bedside. Overnight patient required lidoderm patch. This AM he was ao x 3 [he forgets the year but knows who the president is etc] and denied acute complaints fever, chills, headache, dizziness, chest pain, palpitations, SOB, cough, abd pain, nausea, vomiting, bowel/bladder complaints, pain in his legs b/l. Patient does have swelling in b/l legs but reports it is much improved from the day prior. Objective - Vital Signs/Intake and Output Vital Signs (last 24 hours): Temp Pulse Resp BP Pulse Ox 97.8 F 79 19 118/70 95 07/22/18 00:00 07/22/18 00:00 07/22/18 00:00 07/22/18 00:00 07/22/18 00:00 Intake and Output: 07/21/18 07/22/18 18:59 06:59 Intake Total 2370 250 Output Total 1150 Balance 1220 250 - Medications Medications: Current Medications Aspirin (Aspirin Chewable) 81 mg PO DAILY [facility] Last Admin: 07/21/18 10:09 Dose: 81 mg Bacitracin (Bacitracin) 0 gm TOP Q12 [facility] Last Admin: 07/21/18 22:22 Dose: 1 applic Furosemide (Lasix) 40 mg PO DAILY [facility] Last Admin: 07/20/18 18:17 Dose: 40 mg Cefepime HCl (Maxipime 1gm) 1 gm in 100 mls @ 100 mls/hr IVPB Q12 [facility]; Protocol Stop: 07/31/18 10:01 Last Admin: 07/21/18 21:21 Dose: 100 mls/hr Lactulose (Enulose) 20 gm PO DAILY [facility] Last Admin: 07/21/18 10:08 Dose: 20 gm Metoprolol Tartrate (Lopressor) 25 mg PO BID [facility] Last Admin: 07/20/18 18:11 Dose: 25 mg Mupirocin (Bactroban Ointment) 0 gm TOP DAILY [facility] Last Admin: 07/21/18 10:10 Dose: 1 applic Nicotine (Nicoderm Cq) 1 patch TD DAILY [facility] Last Admin: 07/21/18 10:07 Dose: 1 patch Oxycodone HCl (Oxycontin Extended Release Tab) 40 mg PO TID [facility] Last Admin: 07/21/18 17:26 Dose: 40 mg Potassium Phos/Sodium Phos (Neutra-Phos) 1 pkt PO TID [facility] Last Admin: 07/21/18 17:27 Dose: 1 pkt Spironolactone (Aldactone) 25 mg PO BID [facility] Last Admin: 07/21/18 17:26 Dose: 25 mg - Labs Labs: 07/21/18 06:50 07/21/18 06:50 PT 22.1 SECONDS (9.4-12.5) H 07/21/18 06:50 INR 1.96 07/21/18 06:50 APTT 33.2 Seconds (26.9-38.3) 07/21/18 06:50 - Additional Findings Additional findings: - Constitutional Appears: No Acute Distress, Unkempt, Chronically Ill - Head Exam Head Exam: ATRAUMATIC, NORMAL INSPECTION, NORMOCEPHALIC - Eye Exam Eye Exam: EOMI, Normal appearance. absent: Conjunctival injection, Scleral icterus - ENT Exam ENT Exam: Mucous Membranes Moist - Neck Exam Neck Exam: Full ROM. absent: Lymphadenopathy - Respiratory Exam Respiratory Exam: NORMAL BREATHING PATTERN. absent: Accessory Muscle Use, Rales, Rhonchi, Wheezes, Respiratory Distress - Cardiovascular Exam Cardiovascular Exam: Bradycardia, +S1, +S2. absent: Murmur - GI/Abdominal Exam GI & Abdominal Exam: Soft, Normal Bowel Sounds. absent: Distended, Firm, Guarding, Rigid - Extremities Exam Extremities Exam: Pedal Edema (+2 b/l LE improved from day prior) Additional comments: b/l LE healing wounds noted LLE edema is better than RLE - Back Exam Back Exam: NORMAL INSPECTION. absent: rash noted - Neurological Exam Neurological Exam: Alert, Awake - Psychiatric Exam Psychiatric exam: Normal Affect, Normal Mood - Skin Skin Exam: Dry, Intact, Normal Color, Warm Assessment and Plan - Assessment and Plan (Free Text) Assessment: 1. Acute liver failure- improving 2. Acute systolic CHF 3. Bilateral lower extremity edema- improving 4. Thrombocytopenia 5. Elevated INR not on anticoag- resolved 6. Altered mental status on presentation- resolved 7. Elevated troponin- resolved 8. CAD s/p CABG 9. Tobacco use disorder 10. Chronic opioid use 11. Medication noncompliance 12. acute UTI Plan: Patient's vitals, imaging and blood work noted in chart. Overnight events noted and reviewed. Patient's urine culture +Klebsiella. On Cefepime at this time. LFTs continuing to trend down. As of now, patients hep panel unremarkable and broad autoimmune workup negative. Abdominal u/s and CT Abdomen/pelvis reviewed. Echo revealed EF 25% with signs of pulmonary HTN and 4 chamber enlargement. L iver injury suspect ischemic in nature in light of patient's low EF, BP, and HR. Patient is candidate for ICD but will need a repeat cardiac cath once platelet count improves. Also suspect congestive hepatopathy. Plt 33 this AM. Pending peripheral smear and Heme-onc reccs. Patient's bilateral LE u/s negative for DVT. Procalcitonin elevation likely secondary to acute liver failure. Patient on Nicoderm patch qd for extensive smoking history. Patient also on chronic opioids- adjusted dose to home regimen oxycodone ER 40mg q8 and lidoderm patch daily. As patient follows very unhealthy low nutritional diet- Collection Team Lead on board to psychosocial rehabilitation counselor patient. Podiatry on board for LE wounds- as per podiatry pa tient can be discharged on PO abx for wounds. Patient also counseled thoroughly on the importance of medication compliance upon discharge. Spoke to patient's sister Carmel [phone] at length regarding patient and all questions and concerns were answered. Patient pending TCU eval. Discussed with Dr. Po Diaz PGY3 <Antonio Fontenot S - Last Filed: 07/22/18 16:50> Objective - Vital Signs/Intake and Output Vital Signs (last 24 hours): Temp Pulse Resp BP Pulse Ox 98.3 F 70 18 100/68 95 07/22/18 12:00 07/22/18 12:00 07/22/18 12:00 07/22/18 12:00 07/22/18 00:00 Intake and Output: 07/22/18 07/22/18 06:59 18:59 Intake Total 350 Balance 350 - Medications Medications: Current Medications Aspirin (Aspirin Chewable) 81 mg PO DAILY [facility] Last Admin: 07/22/18 11:34 Dose: 81 mg Bacitracin (Bacitracin) 0 gm TOP Q12 [facility] Last Admin: 07/22/18 11:38 Dose: Not Given Furosemide (Lasix) 40 mg PO DAILY [facility] Last Admin: 07/22/18 11:36 Dose: Not Given Cefepime HCl (Maxipime 1gm) 1 gm in 100 mls @ 100 mls/hr IVPB Q12 [facility]; Protocol Stop: 07/31/18 10:01 Last Admin: 07/22/18 11:35 Dose: 100 mls/hr Lidocaine (Lidoderm) 1 ea TD DAILY [facility] Last Admin: 07/22/18 11:35 Dose: 1 ea Metoprolol Tartrate (Lopressor) 25 mg PO BID [facility] Last Admin: 07/20/18 18:11 Dose: 25 mg Mupirocin (Bactroban Ointment) 0 gm TOP DAILY [facility] Last Admin: 07/22/18 11:37 Dose: 1 applic Nicotine (Nicoderm Cq) 1 patch TD DAILY [facility] Last Admin: 07/22/18 11:35 Dose: 1 patch Oxycodone HCl (Oxycontin Extended Release Tab) 40 mg PO Q8 [facility] Last Admin: 07/22/18 15:38 Dose: 40 mg Potassium Phos/Sodium Phos (Neutra-Phos) 1 pkt PO TID [facility] Last Admin: 07/22/18 15:38 Dose: 1 pkt Spironolactone (Aldactone) 25 mg PO BID [facility] Last Admin: 07/22/18 11:36 Dose: Not Given - Labs Labs: 07/22/18 07:20 07/22/18 07:20 PT 18.7 SECONDS (9.4-12.5) H 07/22/18 07:20 INR 1.65 07/22/18 07:20 APTT 32.2 Seconds (26.9-38.3) 07/22/18 07:20 Assessment and Plan - Assessment and Plan (Free Text) Plan: Pt seen and examined by me. I have reviewed the note of the medical/surgery registered nurse and I agree with it. I have discussed the assessment and plan with the resident. I have reviewed the medications and the last labs.Pt has improved liver function. The cause remains unknown. I did tell him to stop taking the "vitamins" he was on at home. Encepholopathy has improved. BRANDEN has improved. LE continues to improve. Eating well. No pain. Spoke to Heme about the thrombocytopenia. Will need cath but unable until platelets have improved. He is on a nicoderm patch. He is on Oxycodone for pain.
[2018-07-22 07:29] LABS: BASO # 0.04 K/mm3 (0.0-2.0); BASO % 0.4 % (0.0-3.0); EOS # 0.1 (0.0-0.7); EOS % 0.5 % (1.5-5.0); HEMOGLOBIN 13.8 g/dL (14.0-18.0); LYMPH # 2.1 (1.2-3.4); LYMPH % 20.1 % (22.0-35.0); MEAN CELL VOLUME 89.8 fl (80.0-105.0); MEAN CORPUSCULAR HEMOGLOBIN 29.3 pg (25.0-35.0); MEAN CORPUSCULAR HGB CONC 32.6 g/dl (31.0-37.0); MONO # 1.1 (0.1-0.6); MONO % 10.9 % (1.0-6.0); RBC 4.71 10^6/uL (3.5-6.1); RED CELL DISTRIBUTION WIDTH 14.6 % (11.5-14.5); WHITE BLOOD COUNT 10.3 10^3/uL (4.5-11.0)
[2018-07-22 07:36] LABS: PLATELET COUNT 43 10^3/uL (120.0-450.0)
[2018-07-22 07:38] LABS: INR 1.65; PARTIAL THROMBOPLASTIN TIME 32.2 Seconds (26.9-38.3); PROTHROMBIN TIME 18.7 SECONDS (9.4-12.5)
[2018-07-22 08:29] LABS: ALB/GLOB RATIO 0.9 (1.1-1.8); ALBUMIN 2.9 g/dL (3.0-4.8); ALT/SGPT 524 U/L (7-56); AST/SGOT 111 U/L (17-59); BLOOD UREA NITROGEN 30 mg/dL (7-21); CALCIUM 8.6 mg/dL (8.4-10.5); GFR NON-AFRICAN AMERICAN > 60
[2018-07-22 09:30] LABS: PLATELET COUNT MANUAL 50 K/mm3 (120-450)
[2018-07-22] MEDS ORDERED: Lidocaine 5% Patch TD SCH (10:00)
--- NOTE | 2018-07-22 10:00 | CP.PCM.PN ---
Subjective - Date & Time of Evaluation Date of Evaluation: 07/22/18 Time of Evaluation: 09:58 - Subjective Subjective: Podiatry Progress Note - Drs. Altman/Rabia 63M seen and evaluated this AM with Dr. Altman for right dorsal foot wounds. Patient resting comfortably, NAD. No acute events overnight. No new complaints to right foot wound; states swelling continues to resolve. Denies n/v/f/d/c/sob/lopez/cp. Objective - Vital Signs/Intake and Output Vital Signs (last 24 hours): Temp Pulse Resp BP Pulse Ox 97.8 F 79 19 118/70 95 07/22/18 00:00 07/22/18 00:00 07/22/18 00:00 07/22/18 00:00 07/22/18 00:00 Intake and Output: 07/22/18 07/22/18 06:59 18:59 Intake Total 350 Balance 350 - Medications Medications: Current Medications Aspirin (Aspirin Chewable) 81 mg PO DAILY [facility] Last Admin: 07/21/18 10:09 Dose: 81 mg Bacitracin (Bacitracin) 0 gm TOP Q12 [facility] Last Admin: 07/21/18 22:22 Dose: 1 applic Furosemide (Lasix) 40 mg PO DAILY [facility] Last Admin: 07/20/18 18:17 Dose: 40 mg Cefepime HCl (Maxipime 1gm) 1 gm in 100 mls @ 100 mls/hr IVPB Q12 [facility]; Protocol Stop: 07/31/18 10:01 Last Admin: 07/21/18 21:21 Dose: 100 mls/hr Metoprolol Tartrate (Lopressor) 25 mg PO BID [facility] Last Admin: 07/20/18 18:11 Dose: 25 mg Mupirocin (Bactroban Ointment) 0 gm TOP DAILY [facility] Last Admin: 07/21/18 10:10 Dose: 1 applic Nicotine (Nicoderm Cq) 1 patch TD DAILY [facility] Last Admin: 07/21/18 10:07 Dose: 1 patch Oxycodone HCl (Oxycontin Extended Release Tab) 40 mg PO Q8 [facility] Potassium Phos/Sodium Phos (Neutra-Phos) 1 pkt PO TID [facility] Last Admin: 07/21/18 17:27 Dose: 1 pkt Spironolactone (Aldactone) 25 mg PO BID [facility] Last Admin: 07/21/18 17:26 Dose: 25 mg - Labs Labs: 07/22/18 07:20 07/22/18 07:20 PT 18.7 SECONDS (9.4-12.5) H 07/22/18 07:20 INR 1.65 07/22/18 07:20 APTT 32.2 Seconds (26.9-38.3) 07/22/18 07:20 - Constitutional Appears: Well, Non-toxic, No Acute Distress - Head Exam Head Exam: ATRAUMATIC, NORMOCEPHALIC - Extremities Exam Additional comments: RLE focused VASC: DP and PT pulses 2/4; cap refill <3 seconds to all digits; temp gradient warm to warm; +1 pitting edema noted to the LE DERM: 2 small 0.3 x 0.3 x 0.1 cm wounds noted at area of tongue of shoe dorsally, fibrotic tissue and scab formation appreciated, mild periwound erythema; healed scratches about the lower legs ORTHO: mild pain on palpation of the dorsum of the foot where wounds present NEURO: gross and protective sensation intact - Neurological Exam Neurological Exam: Alert, Awake, Oriented x3 - Psychiatric Exam Psychiatric exam: Normal Affect, Normal Mood Assessment and Plan - Assessment and Plan (Free Text) Assessment: 63M with right foot dorsal wounds, infected Plan: Patient seen and evaluated with Dr. Anupama MORATAYA, WBC 10.3 Continue local wound care: saline cleanse, bactroban, optifoam L foot wound culture: staph aureus Patient stable for discharge for foot wounds with PO abx Podiatry will continue to follow
[2018-07-22] MEDS ORDERED: oxyCODONE 20 mg ER Tab (oxyCONTIN) PO SCH ×2 (10:17→14:00)
[2018-07-22] MEDS: oxyCODONE 20 mg ER Tab (oxyCONTIN) PO SCH ×3 (10:35→21:58)
[2018-07-22] MEDS: Potassium & Sodium Phosphate PO SCH ×4 (11:34→18:38)
[2018-07-22] MEDS: Cefepime 1gm in NS 100ml 1 GM/100 ML BAG IVPB SCH ×2 (11:35→21:57)
[2018-07-22] MEDS: Mupirocin 2% Ointment 15 GM TUBE TOP SCH (11:37)
[2018-07-22] MEDS: Bacitracin Ointment 30 GM TUBE TOP SCH ×2 (11:38→21:58)
[2018-07-22 12:06] VITALS: RESP 18
--- NOTE | 2018-07-22 13:39 | PN ---
DATE: 07/22/2018 SUBJECTIVE: The patient is seen sitting in bed on telemetry. He feels somewhat improved. He denies any lightheadedness. He has had no chest pain or dyspnea. CURRENT MEDICATIONS: Include Aldactone 25 mg b.i.d., aspirin, Lasix 40 mg daily, Lidoderm patch, metoprolol 25 mg b.i.d., Maxipime, Neutra-Phos, Nicoderm and oxycodone. OBJECTIVE: GENERAL: He is a middle-aged man who appears comfortable at rest. VITAL SIGNS: Blood pressure is 118/70 with pulse of 80 with sinus rhythm and frequent PVCs, respirations are 14. He is afebrile. HEENT: No JVD. CHEST: Bilateral scattered rhonchi heard. HEART: PMI displaced laterally with soft tones noted. ABDOMEN: Soft with normoactive bowel sounds. EXTREMITIES: 1 to 2+ leg edema. DIAGNOSTIC DATA: Potassium 5.2, BUN and creatinine 30 and 0.7. White count 10.3, hemoglobin and hematocrit 13.8 and 42.3 with platelet count of 43,000. AST and ALT 111 and 524 with a bilirubin of 1.8. IMPRESSION: 1. Known coronary artery disease, status post prior bypass surgery. 2. Severe left ventricular systolic dysfunction. 3. Severe thrombocytopenia. 4. Recent nonsustained ventricular tachycardia. RECOMMENDATIONS: His current regimen will be resumed at this time. His future management remains problematic. Given his left ventricular dysfunction, a repeat cardiac catheterization to assess his status of his coronary anatomy and bypass grafts would be reasonable, however, coronary intervention is likely not feasible given his severe thrombocytopenia should this persist. In addition, given his LV dysfunction, evaluation for prophylactic ICD implant will need to be considered. Evaluation of his thrombocytopenia is in progress at the present time and further plans can be made based upon those results. We will continue to follow and make further recommendations as appropriate. Joss Hayes MD
--- NOTE | 2018-07-22 13:40 | CP.PCM.PN ---
Subjective - Date & Time of Evaluation Date of Evaluation: 07/22/18 Time of Evaluation: 11:15 - Subjective Subjective: PGY-4 GI Fellow Prog Note Pt lying in bed when seen this AM. Awoke to voice. He denied any complaints. Orientate x 3 this AM. 5 point ROS negative other than stated above Objective - Vital Signs/Intake and Output Vital Signs (last 24 hours): Temp Pulse Resp BP Pulse Ox 98.3 F 70 18 100/68 95 07/22/18 12:00 07/22/18 12:00 07/22/18 12:00 07/22/18 12:00 07/22/18 00:00 Intake and Output: 07/22/18 07/22/18 06:59 18:59 Intake Total 350 Balance 350 - Medications Medications: Current Medications Aspirin (Aspirin Chewable) 81 mg PO DAILY [facility] Last Admin: 07/22/18 11:34 Dose: 81 mg Bacitracin (Bacitracin) 0 gm TOP Q12 [facility] Last Admin: 07/22/18 11:38 Dose: Not Given Furosemide (Lasix) 40 mg PO DAILY [facility] Last Admin: 07/22/18 11:36 Dose: Not Given Cefepime HCl (Maxipime 1gm) 1 gm in 100 mls @ 100 mls/hr IVPB Q12 [facility]; Protocol Stop: 07/31/18 10:01 Last Admin: 07/22/18 11:35 Dose: 100 mls/hr Lidocaine (Lidoderm) 1 ea TD DAILY [facility] Last Admin: 07/22/18 11:35 Dose: 1 ea Metoprolol Tartrate (Lopressor) 25 mg PO BID [facility] Last Admin: 07/20/18 18:11 Dose: 25 mg Mupirocin (Bactroban Ointment) 0 gm TOP DAILY [facility] Last Admin: 07/22/18 11:37 Dose: 1 applic Nicotine (Nicoderm Cq) 1 patch TD DAILY [facility] Last Admin: 07/22/18 11:35 Dose: 1 patch Oxycodone HCl (Oxycontin Extended Release Tab) 40 mg PO Q8 [facility] Last Admin: 07/22/18 10:35 Dose: 40 mg Potassium Phos/Sodium Phos (Neutra-Phos) 1 pkt PO TID [facility] Last Admin: 07/22/18 11:34 Dose: 1 pkt Spironolactone (Aldactone) 25 mg PO BID [facility] Last Admin: 07/22/18 11:36 Dose: Not Given - Labs Labs: 07/22/18 07:20 07/22/18 07:20 PT 18.7 SECONDS (9.4-12.5) H 07/22/18 07:20 INR 1.65 07/22/18 07:20 APTT 32.2 Seconds (26.9-38.3) 07/22/18 07:20 - Constitutional Appears: Well, No Acute Distress - Head Exam Head Exam: ATRAUMATIC, NORMAL INSPECTION - Eye Exam Eye Exam: EOMI. absent: Scleral icterus - ENT Exam ENT Exam: Mucous Membranes Moist. absent: Mucous Membranes Dry - Respiratory Exam Respiratory Exam: NORMAL BREATHING PATTERN. absent: Accessory Muscle Use, Respiratory Distress - GI/Abdominal Exam GI & Abdominal Exam: Soft, Normal Bowel Sounds. absent: Bruit, Distended, Firm, Guarding, Rigid, Tenderness, Mass, Organomegaly, Pulsatile Mass - Neurological Exam Neurological Exam: Alert, Oriented x3 Additional comments: no asterixis Assessment and Plan - Assessment and Plan (Free Text) Assessment: 63 yo WF with CAD s/p CABG and chronic low back pain presenting with worsening LE edema, found to have abnormal liver tests and elevated INR. # Acute Liver Failure: Diagnostic criteria met of Encephalopathy and INR > 1.5 in absence of prior liver disease. Unclear etiology at this point with main differential of acute viral hepatitis, ischemia, drugs or acetaminophen induced. Pt reportedly on oxycodone alone without acetaminophen. Given h/o CAD, ischemia possible but BP not low here and does not seem like acute [place]. Unknown if risk factors for acute viral hep. Echogenic liver on Abd US, CT (without contrast) without explanation of clinical presentation. Pt reports took some kind of "vitamin/supplement to help feel better/improve energy" for several days prior to presentation, raising suspicion for drug induced liver injury. # Acute Severe Hepatitis: Improving. AST and ALT > 1 k with mildly elevated bili and normal AP. Improving. Plan: - s/p NAC infusion - Echo with BiV CHF, 4 chamber enlargement, LVEF 25% and signs of Pulm HTN; congestive hepatopathy? + Hepatojugular reflex. - Abd Duplex without PVT nor signs of Budd-Chiari - Cardiology consulted - Viral Hep Serologies negative as well as broad Autoimmune and serologic workup. - Suspect related to acute ischemic hepatitis causing acute liver failure Pt discussed with Dr. Rizo; please see attestation for further recs/changes.
[2018-07-23 00:53] VITALS: O2SAT 98
[2018-07-23] MEDS: oxyCODONE 20 mg ER Tab (oxyCONTIN) PO SCH ×2 (05:33→13:12)
[2018-07-23 07:42] LABS: BASO # 0.02 K/mm3 (0.0-2.0); BASO % 0.3 % (0.0-3.0); EOS # 0.1 (0.0-0.7); EOS % 1.6 % (1.5-5.0); HEMOGLOBIN 12.6 g/dL (14.0-18.0); LYMPH # 1.9 (1.2-3.4); LYMPH % 27.4 % (22.0-35.0); MEAN CELL VOLUME 89.2 fl (80.0-105.0); MEAN CORPUSCULAR HEMOGLOBIN 28.8 pg (25.0-35.0); MEAN CORPUSCULAR HGB CONC 32.3 g/dl (31.0-37.0); MEAN PLATELET VOLUME 13.4 fl (7.0-11.0); MONO # 0.7 (0.1-0.6); MONO % 10.5 % (1.0-6.0); RBC 4.37 10^6/uL (3.5-6.1); RED CELL DISTRIBUTION WIDTH 14.4 % (11.5-14.5); WHITE BLOOD COUNT 6.9 10^3/uL (4.5-11.0)
[2018-07-23 07:55] LABS: INR 1.58; PARTIAL THROMBOPLASTIN TIME 29.3 Seconds (26.9-38.3); PROTHROMBIN TIME 17.9 SECONDS (9.4-12.5)
[2018-07-23 08:09] LABS: ALB/GLOB RATIO 0.9 (1.1-1.8); ALBUMIN 2.7 g/dL (3.0-4.8); ALT/SGPT 385 U/L (7-56); AST/SGOT 83 U/L (17-59); BLOOD UREA NITROGEN 23 mg/dL (7-21); CALCIUM 8.3 mg/dL (8.4-10.5); GFR NON-AFRICAN AMERICAN > 60
--- NOTE | 2018-07-23 08:11 | CP.PCM.PN ---
Subjective - Date & Time of Evaluation Date of Evaluation: 07/23/18 Time of Evaluation: 08:45 - Subjective Subjective: PGY-4 GI Fellow Prog Note Pt eating breakfast when seen this AM. States he continues to feel well other than slowly improving leg swelling. Tolerating and stooling without issues. 5 point ROS negative other than stated above Objective - Vital Signs/Intake and Output Vital Signs (last 24 hours): Temp Pulse Resp BP Pulse Ox 97.6 F 69 18 90/45 L 98 07/23/18 06:00 07/23/18 06:00 07/23/18 06:00 07/23/18 06:00 07/23/18 06:00 Intake and Output: 07/23/18 07/23/18 06:59 18:59 Intake Total 600 Balance 600 - Medications Medications: Current Medications Aspirin (Aspirin Chewable) 81 mg PO DAILY [facility] Last Admin: 07/22/18 11:34 Dose: 81 mg Bacitracin (Bacitracin) 0 gm TOP Q12 [facility] Last Admin: 07/22/18 21:58 Dose: 1 applic Furosemide (Lasix) 40 mg PO DAILY [facility] Cefepime HCl (Maxipime 1gm) 1 gm in 100 mls @ 100 mls/hr IVPB Q12 [facility]; Protocol Stop: 07/31/18 10:01 Last Admin: 07/22/18 21:57 Dose: 100 mls/hr Lidocaine (Lidoderm) 1 ea TD DAILY [facility] Last Admin: 07/22/18 11:35 Dose: 1 ea Metoprolol Tartrate (Lopressor) 25 mg PO BID [facility] Mupirocin (Bactroban Ointment) 0 gm TOP DAILY [facility] Last Admin: 07/22/18 11:37 Dose: 1 applic Nicotine (Nicoderm Cq) 1 patch TD DAILY [facility] Last Admin: 07/22/18 11:35 Dose: 1 patch Oxycodone HCl (Oxycontin Extended Release Tab) 40 mg PO Q8 [facility] Last Admin: 07/23/18 05:33 Dose: 40 mg Potassium Phos/Sodium Phos (Neutra-Phos) 1 pkt PO TID [facility] Last Admin: 07/22/18 18:38 Dose: 1 pkt Spironolactone (Aldactone) 25 mg PO BID [facility] - Labs Labs: 07/23/18 07:30 07/22/18 07:20 PT 17.9 SECONDS (9.4-12.5) H 07/23/18 07:30 INR 1.58 07/23/18 07:30 APTT 29.3 Seconds (26.9-38.3) 07/23/18 07:30 - Constitutional Appears: Well, No Acute Distress - Head Exam Head Exam: ATRAUMATIC, NORMAL INSPECTION - Eye Exam Eye Exam: EOMI. absent: Scleral icterus - ENT Exam ENT Exam: Mucous Membranes Moist. absent: Mucous Membranes Dry - Respiratory Exam Respiratory Exam: NORMAL BREATHING PATTERN. absent: Accessory Muscle Use, Respiratory Distress - GI/Abdominal Exam GI & Abdominal Exam: Soft, Normal Bowel Sounds. absent: Bruit, Distended, Firm, Guarding, Rigid, Tenderness, Mass, Organomegaly, Pulsatile Mass, Rebound - Neurological Exam Neurological Exam: Alert, Oriented x3 Additional comments: No asterixis Assessment and Plan - Assessment and Plan (Free Text) Assessment: 63 yo WF with CAD s/p CABG and chronic low back pain presenting with worsening LE edema, found to have abnormal liver tests and elevated INR. # Acute Liver Failure: Improved. Diagnostic criteria met of Encephalopathy and INR > 1.5 in absence of prior liver disease. Unclear etiology at this point with main differential of acute viral hepatitis, ischemia, drugs or acetaminophen induced. Pt reportedly on oxycodone alone without acetaminophen. Given h/o CAD, ischemia possible but BP not low here and does not seem like acute [place]. Unknown if risk factors for acute viral hep. Echogenic liver on Abd US, CT (without contrast) without explanation of clinical presentation. Pt reports took some kind of "vitamin/supplement to help feel better/improve energy" for several days prior to presentation, raising suspicion for drug induced liver injury. # Acute Severe Hepatitis: Improving. AST and ALT > 1 k with mildly elevated bili and normal AP. Improving. Plan: - s/p NAC infusion - Echo with BiV CHF, 4 chamber enlargement, LVEF 25% and signs of Pulm HTN; congestive hepatopathy? - Abd Duplex without PVT nor signs of Budd-Chiari - Cardiology consulted - Viral Hep Serologies negative as well as broad Autoimmune and serologic workup. - Suspect related to acute ischemic hepatitis causing acute liver failure with possible drug induced component in "vitamins" - Consider Pulm consult given Pulm HTN Pt discussed with Dr. Rizo; please see attestation for further recs/changes.
[2018-07-23] MEDS: Cefepime 1gm in NS 100ml 1 GM/100 ML BAG IVPB SCH (09:14)
[2018-07-23] MEDS: Potassium & Sodium Phosphate PO SCH ×3 (09:15→18:17)
[2018-07-23] MEDS: Lidocaine 5% Patch TD SCH (09:15)
--- NOTE | 2018-07-23 10:34 | CON ---
DATE: 07/22/2018 REASON FOR CONSULTATION: Thrombocytopenia. REQUESTING PHYSICIAN: Dr. Méndez. HISTORY OF PRESENT ILLNESS: Mr. Rodriguez is a 63-year-old male admitted to the hospital with bilateral lower extremity cellulitis progressively increasing, also scrotal swelling and confusion, altered mental status. He has a history of CAD, status post CABG. Chronic leg pain, on oxycodone. He had CT chest, abdomen, and pelvis which was unremarkable except for the renal stone and spondylolisthesis. Platelet count declined from 102,000 on admission to 31,000. Denies any bleeding. No petechia. No skin lesions. White count was also elevated to 12.7, which is normal to 9.8 now. PAST MEDICAL HISTORY: CAD, chronic back pain, chronic leg cellulitis. PAST SURGICAL HISTORY: Cardiac catheterization, CABG. ALLERGIES: NO KNOWN DRUG ALLERGIES. REVIEW OF SYSTEMS: As per HPI. Rest of 12-point review of systems reviewed and negative. PHYSICAL EXAMINATION: GENERAL: Comfortable in bed, in no acute distress. VITAL SIGNS: Temperature 98.5, heart rate 86 per minute, blood pressure 127/63, and pulse ox is 99%, respiratory rate 16 per minute. HEENT: Pallor positive. NECK: No lymphadenopathy. CHEST: Air entry present and equal bilaterally. No added sounds. EXTREMITIES: 1+ edema. CENTRAL NERVOUS SYSTEM: Alert and oriented x3. No focal sensory or motor deficit. LABORATORY DATA: White count 10.3, hemoglobin 13.8, hematocrit 40.3, platelet 43,000, lowest was [address]. Sodium 134, potassium 5.5, creatinine 0.7. LFT shows elevated bilirubin 1.8. Elevated AST and ALT 111 and 524. ASSESSMENT: 1. Thrombocytopenia. 2. Coronary artery disease. 3. Transaminitis. 4. Hyperbilirubinemia. 5. Urinary tract infection. PLAN: Thrombocytopenia is acute, might have ITP. We will sent anti-platelet antibody direct and indirect. Also, send heparin-induced antibody, might have received heparin for IV flushes. Platelet count has improved, the lowest was 31,000, spontaneous recovery should be awaited. He denies any alcohol abuse. He said his last drink was 30 years ago. We will continue to monitor platelet count. HIV and hepatitis serologies are negative. TATIANA was negative. He also had UTI with Klebsiella pneumoniae. Acute infection can also cause thrombocytopenia. We will continue to monitor platelet count closely. He does not have hepatosplenomegaly on CAT scan of the abdomen. Discussed with the patient. Discussed with Dr. Méndez. Thank you Dr. Méndez for allowing us to participate in Mr. Rodriguez's care. Karis Delgado MD
[2018-07-23] MEDS: Bacitracin Ointment 30 GM TUBE TOP SCH (13:12)
--- NOTE | 2018-07-23 13:34 | CP.PCM.PN ---
<Emmie Diaz - Last Filed: 07/23/18 14:09> Subjective - Date & Time of Evaluation Date of Evaluation: 07/23/18 Time of Evaluation: 07:15 - Subjective Subjective: Pgy3 Medicine progress note for Dr. Fontenot Patient seen and examined at bedside. As per nursing no acute events overnight. Patient denied complaints of fever, chills, headache, dizziness, chest pain, palpitations, SOB, cough, abd pain, nausea, vomiting, bowel/bladder complaints, pain in his legs b/l. Patient continues to have b/l LE swelling. Objective - Vital Signs/Intake and Output Vital Signs (last 24 hours): Temp Pulse Resp BP Pulse Ox 97.4 F L 72 18 97/65 L 98 07/23/18 11:32 07/23/18 11:32 07/23/18 11:32 07/23/18 11:32 07/23/18 06:00 Intake and Output: 07/23/18 07/23/18 06:59 18:59 Intake Total 600 Balance 600 - Medications Medications: Current Medications Aspirin (Aspirin Chewable) 81 mg PO DAILY [facility] Last Admin: 07/23/18 09:16 Dose: 81 mg Bacitracin (Bacitracin) 0 gm TOP Q12 [facility] Last Admin: 07/23/18 13:12 Dose: 1 applic Furosemide (Lasix) 40 mg PO DAILY [facility] Last Admin: 07/23/18 09:15 Dose: Not Given Cefepime HCl (Maxipime 1gm) 1 gm in 100 mls @ 100 mls/hr IVPB Q12 [facility]; Protocol Stop: 07/31/18 10:01 Last Admin: 07/23/18 09:14 Dose: 100 mls/hr Lidocaine (Lidoderm) 1 ea TD DAILY [facility] Last Admin: 07/23/18 09:15 Dose: 1 ea Metoprolol Tartrate (Lopressor) 25 mg PO BID [facility] Last Admin: 07/23/18 09:14 Dose: Not Given Mupirocin (Bactroban Ointment) 0 gm TOP DAILY [facility] Last Admin: 07/22/18 11:37 Dose: 1 applic Nicotine (Nicoderm Cq) 1 patch TD DAILY [facility] Last Admin: 07/23/18 09:15 Dose: 1 patch Oxycodone HCl (Oxycontin Extended Release Tab) 40 mg PO Q8 [facility] Last Admin: 07/23/18 13:12 Dose: 40 mg Potassium Phos/Sodium Phos (Neutra-Phos) 1 pkt PO TID [facility] Last Admin: 07/23/18 13:12 Dose: 1 pkt Spironolactone (Aldactone) 25 mg PO BID [facility] Last Admin: 07/23/18 09:16 Dose: Not Given - Labs Labs: 07/23/18 07:30 07/23/18 07:30 PT 17.9 SECONDS (9.4-12.5) H 07/23/18 07:30 INR 1.58 07/23/18 07:30 APTT 29.3 Seconds (26.9-38.3) 07/23/18 07:30 - Additional Findings Additional findings: - Constitutional Appears: No Acute Distress, Unkempt, Chronically Ill - Head Exam Head Exam: ATRAUMATIC, NORMAL INSPECTION, NORMOCEPHALIC - Eye Exam Eye Exam: EOMI, Normal appearance. absent: Conjunctival injection, Scleral icterus - ENT Exam ENT Exam: Mucous Membranes Moist - Neck Exam Neck Exam: Full ROM. absent: Lymphadenopathy - Respiratory Exam Respiratory Exam: NORMAL BREATHING PATTERN. absent: Accessory Muscle Use, Rales, Rhonchi, Wheezes, Respiratory Distress - Cardiovascular Exam Cardiovascular Exam: RRR, +S1, +S2. absent: Murmur - GI/Abdominal Exam GI & Abdominal Exam: Soft, Normal Bowel Sounds. absent: Distended, Firm, Guarding, Rigid - Extremities Exam Extremities Exam: Pedal Edema (+2 b/l LE improved from day prior) Additional comments: b/l LE healing wounds noted LLE edema is better than RLE - Back Exam Back Exam: NORMAL INSPECTION. absent: rash noted - Neurological Exam Neurological Exam: Alert, Awake - Psychiatric Exam Psychiatric exam: Normal Affect, Normal Mood - Skin Skin Exam: Dry, Intact, Normal Color, Warm Assessment and Plan - Assessment and Plan (Free Text) Assessment: - Acute liver failure- improving - Systolic CHF - Bilateral lower extremity edema- improving - Thrombocytopenia - Elevated INR not on anticoag- resolved - Altered mental status on presentation- resolved - Elevated troponin- resolved - CAD s/p CABG - Tobacco use disorder - Chronic opioid use - Medication noncompliance - acute UTI Plan: Patient's vitals, imaging and blood work noted in chart. LFTs improving this AM. Patients hep panel unremarkable and broad autoimmune workup negative. Abdominal u/s and CT Abdomen/pelvis reviewed. Echo revealed EF 25% with signs of pulmonary HTN and 4 chamber enlargement. Liver injury suspect ischemic in nature in light of patient's low EF, BP, and HR. Patient is candidate for ICD but will need a repeat cardiac cath once platelet count improves. Continue lasix and spironolactone at this time in addition to Lopressor. Plt 79 this AM. Heme-onc reccs appreciated. Peripheral blood smear showed "WBC cells manual diff- Neutrolphils 62%, Lymphocytes 22%, Monocytes 13%, Eosinophils 3%; RBC normocytic normochromic with slight anisocytosis and elayne cells present; Plt are decreased. No clumping of the plt present. Occasional large plt present. No atypical cells of immature forms identified." Patient's urine culture +Klebsiella. On Cefepime at this time. Patient's bilateral LE u/s negative for DVT. Procalcitonin elevation likely secondary to acute liver failure. Patient on ASA daily and has hx of CAD s/p CABG. Patient on Nicoderm patch qd for extensive smoking history. Patient also on chronic opioids- adjusted dose to home regimen oxycodone ER 40mg q8 and lidoderm patch daily. Floor Tech counseled patient on following a healthier diet. Podiatry on board for LE wounds- as per podiatry patient can be discharged on PO abx for wounds. Patient also counseled thoroughly on the importance of medication compliance upon discharge. Spoke to patient's sister Carmel [phone] at length regarding patient and all questions and concerns were answered. Patient likely discharge home with services in the AM. Discussed with Dr. Po Diaz PGY3 <Antonio Fontenot S - Last Filed: 07/23/18 17:02> Objective - Vital Signs/Intake and Output Vital Signs (last 24 hours): Temp Pulse Resp BP Pulse Ox 97.4 F L 72 18 101/64 98 07/23/18 11:32 07/23/18 11:32 07/23/18 11:32 07/23/18 14:20 07/23/18 06:00 Intake and Output: 07/23/18 07/23/18 06:59 18:59 Intake Total 600 Balance 600 - Medications Medications: Current Medications Aspirin (Aspirin Chewable) 81 mg PO DAILY [facility] Last Admin: 07/23/18 09:16 Dose: 81 mg Bacitracin (Bacitracin) 0 gm TOP Q12 [facility] Last Admin: 07/23/18 13:12 Dose: 1 applic Furosemide (Lasix) 40 mg PO DAILY [facility] Last Admin: 07/23/18 14:20 Dose: 40 mg Cefepime HCl (Maxipime 1gm) 1 gm in 100 mls @ 100 mls/hr IVPB Q12 [facility]; Protocol Stop: 07/31/18 10:01 Last Admin: 07/23/18 09:14 Dose: 100 mls/hr Lidocaine (Lidoderm) 1 ea TD DAILY [facility] Last Admin: 07/23/18 09:15 Dose: 1 ea Metoprolol Tartrate (Lopressor) 25 mg PO BID [facility] Last Admin: 07/23/18 09:14 Dose: Not Given Mupirocin (Bactroban Ointment) 0 gm TOP DAILY [facility] Last Admin: 07/23/18 14:26 Dose: Not Given Nicotine (Nicoderm Cq) 1 patch TD DAILY [facility] Last Admin: 07/23/18 09:15 Dose: 1 patch Oxycodone HCl (Oxycontin Extended Release Tab) 40 mg PO Q8 [facility] Last Admin: 07/23/18 13:12 Dose: 40 mg Potassium Phos/Sodium Phos (Neutra-Phos) 1 pkt PO TID [facility] Last Admin: 07/23/18 13:12 Dose: 1 pkt Spironolactone (Aldactone) 25 mg PO BID [facility] Last Admin: 07/23/18 09:16 Dose: Not Given - Labs Labs: 07/23/18 07:30 07/23/18 07:30 PT 17.9 SECONDS (9.4-12.5) H 07/23/18 07:30 INR 1.58 07/23/18 07:30 APTT 29.3 Seconds (26.9-38.3) 07/23/18 07:30 Assessment and Plan - Assessment and Plan (Free Text) Plan: Pt seen and examined by me. I have reviewed the note of the medical staff services manager and I agree with it. I have discussed the assessment and plan with the resident. I have reviewed the medications and the last labs.Pt with improved encephalopathy. The pt's acute liver failure is improved. LE edema is improving. BRANDEN has resolved. He has improvement of his coagulopathy. He is able to walk but has difficulty in with stairs. He is interested in going to [facility]. Will send to [facility]. Pt is on Oxycodone for back pain. He has CHF-secondary to syst olic dysfunction. I did speak to GI today. Family updated.
[2018-07-23] MEDS: Mupirocin 2% Ointment 15 GM TUBE TOP SCH (14:26)
--- NOTE | 2018-07-23 16:28 | CP.PCM.DIS ---
<Emmie Diaz - Last Filed: 07/23/18 17:17> Provider - Provider Date of Admission: 07/15/18 17:01 Attending physician: Antonio Fontenot MD Primary care physician: Jake Unger MD Consults: 07/15/18 16:57 Cardiology Consult Routine Comment: CABG, bilateral LE pedal edema with BNP 84408, Consulting Provider: Duane Hill Consulting Physician: Duane Hill Reason for Consult: CABG, bilateral LE pedal edema with BNP 26144, 07/15/18 17:08 Gastroenterology Consult Routine Comment: elevated LFTS, leg edema, liver failure? Consulting Provider: Deshaun Rizo V Consulting Physician: Deshaun Rizo V Reason for Consult: elevated LFTS, leg edema, liver failure? 07/16/18 01:05 Transition In Care/Readmission Reduction Routine Comment: Physician Instructions: Reason For Exam: new admission 07/16/18 02:26 Nursing Referral for Palliative Care Routine Comment: Physician Instructions: Reason For Exam: initial screening 07/17/18 08:55 Pulmonology Consult Routine Comment: Consulting Provider: Vicente Trujillo Consulting Physician: Vicente Trujillo Reason for Consult: pulmonary nodules 07/17/18 08:58 Podiatry Consult Routine Comment: Consulting Provider: Ysabel Altman Consulting Physician: Ysabel Altman Reason for Consult: b/l LE wounds 07/18/18 09:17 Consult [Physician Consult] Routine Comment: Consulting Provider: Karis Delgado Consulting Physician: Karis Delgado Reason for Consult: thrombocytopenia 07/22/18 03:28 Nursing Referral for Wound Care Routine Comment: Physician Instructions: Reason For Exam: R foot skin tear 07/22/18 08:50 TCU [Evaluation for TRCU] Routine Comment: Physician Instructions: Reason For Exam: gait dysfunction Time Spent in preparation of Discharge (in minutes): 45 Hospital Course - Lab Results Lab Results: Micro Results 07/19/18 09:50 Blood-Venous Blood Culture - Preliminary NO GROWTH AFTER 4 DAYS 07/19/18 09:20 Blood-Venous Blood Culture - Preliminary NO GROWTH AFTER 4 DAYS 07/19/18 17:06 Urine,Clean Catch Urine Culture - Final Klebsiella Pneumoniae Ssp Pneu 07/15/18 16:00 Blood-Venous Blood Culture - Final NO GROWTH AFTER 5 DAYS 07/15/18 16:00 Blood-Venous Gram Stain - Final TEST NOT PERFORMED 07/15/18 15:30 Blood-Venous Blood Culture - Final NO GROWTH AFTER 5 DAYS 07/15/18 15:30 Blood-Venous Gram Stain - Final TEST NOT PERFORMED 07/18/18 13:00 Foot - Left Gram Stain - Final 07/18/18 13:00 Foot - Left Wound Culture - Final Staphylococcus Aureus 07/15/18 22:00 Naris MRSA Culture (Admit) - Final MRSA NOT DETECTED Most Recent Lab Values WBC 6.9 10^3/uL (4.5-11.0) D 07/23/18 07:30 RBC 4.37 10^6/uL (3.5-6.1) 07/23/18 07:30 Hgb 12.6 g/dL (14.0-18.0) L 07/23/18 07:30 Hct 39.0 % (42.0-52.0) L 07/23/18 07:30 MCV 89.2 fl (80.0-105.0) 07/23/18 07:30 MCH 28.8 pg (25.0-35.0) 07/23/18 07:30 MCHC 32.3 g/dl (31.0-37.0) 07/23/18 07:30 RDW 14.4 % (11.5-14.5) 07/23/18 07:30 Plt Count 79 10^3/uL (120.0-450.0) L 07/23/18 07:30 Manual Plt Count 50 K/mm3 (120-450) L 07/22/18 07:20 MPV 13.4 fl (7.0-11.0) H 07/23/18 07:30 Gran % 58.3 % (50.0-68.0) 07/19/18 06:20 Neut % (Auto) 60.2 % (50.0-68.0) 07/23/18 07:30 Lymph % (Auto) 27.4 % (22.0-35.0) 07/23/18 07:30 Jerome % (Auto) 10.5 % (1.0-6.0) H 07/23/18 07:30 Eos % (Auto) 1.6 % (1.5-5.0) 07/23/18 07:30 Baso % (Auto) 0.3 % (0.0-3.0) 07/23/18 07:30 Gran # 3.33 (1.4-6.5) 07/19/18 06:20 Lymph # (Auto) 1.9 (1.2-3.4) 07/23/18 07:30 Jerome # (Auto) 0.7 (0.1-0.6) H 07/23/18 07:30 Eos # (Auto) 0.1 (0.0-0.7) 07/23/18 07:30 Baso # (Auto) 0.02 K/mm3 (0.0-2.0) 07/23/18 07:30 Absolute Neuts (auto) 4.17 (1.4-6.5) 07/23/18 07:30 Differential Comment See pathology report 07/19/18 06:20 Platelet Evaluation Low (NORMAL) 07/20/18 07:30 PT 17.9 SECONDS (9.4-12.5) H 07/23/18 07:30 INR 1.58 07/23/18 07:30 APTT 29.3 Seconds (26.9-38.3) 07/23/18 07:30 Sodium 134 mmol/L (132-148) 07/23/18 07:30 Potassium 4.2 mmol/L (3.6-5.0) 07/23/18 07:30 Chloride 100 mmol/L (98-107) 07/23/18 07:30 Carbon Dioxide 33 mmol/L (21-33) 07/23/18 07:30 Anion Gap 6 (10-20) L 07/23/18 07:30 BUN 23 mg/dL (7-21) H 07/23/18 07:30 Creatinine 0.6 mg/dl (0.8-1.5) L 07/23/18 07:30 Est GFR ( Amer) > 60 07/23/18 07:30 Est GFR (Non-Af Amer) > 60 07/23/18 07:30 Random Glucose 91 mg/dL (70-110) 07/23/18 07:30 Lactic Acid 1.6 mmol/L (0.7-2.1) 07/16/18 16:17 Calcium 8.3 mg/dL (8.4-10.5) L 07/23/18 07:30 Phosphorus 3.1 mg/dL (2.5-4.5) 07/23/18 07:30 Magnesium 1.9 mg/dL (1.7-2.2) 07/23/18 07:30 Iron 29 ug/dL (45-180) L 07/16/18 10:40 TIBC 361 ug/dL (261-462) 07/16/18 10:40 % Saturation 8 % (20-55) L 07/16/18 10:40 Ferritin 306.0 ng/mL 07/16/18 10:40 Total Bilirubin 1.7 mg/dL (0.2-1.3) H 07/23/18 07:30 Direct Bilirubin 1.4 mg/dL (0.0-0.4) H 07/16/18 09:10 AST 83 U/L (17-59) H D 07/23/18 07:30 ALT 385 U/L (7-56) H 07/23/18 07:30 Alkaline Phosphatase 80 U/L (38-126) 07/23/18 07:30 Ammonia 11 umol/L (9-33) 07/16/18 09:10 Lactate Dehydrogenase 4152 U/L (333-699) H 07/16/18 09:10 Troponin I 0.03 ng/mL D 07/21/18 00:15 NT-Pro-B Natriuret Pep 78779 pg/mL (0-450) H 07/15/18 15:30 Total Protein 5.8 g/dL (5.8-8.3) 07/23/18 07:30 Albumin 2.7 g/dL (3.0-4.8) L 07/23/18 07:30 Globulin 3.2 gm/dL 07/23/18 07:30 Albumin/Globulin Ratio 0.9 (1.1-1.8) L 07/23/18 07:30 Ceruloplasmin 31 mg/dL (18-36) 07/17/18 21:35 Alpha Fetoprotein 1.4 ng/mL (0.0-7.5) 07/16/18 06:50 Procalcitonin 0.54 NG/ML (0.19-0.49) H 07/16/18 09:10 Urine Color Dark yellow (YELLOW) 07/19/18 17:06 Urine Appearance Clear (CLEAR) 07/19/18 17:06 Urine pH 6.0 (4.7-8.0) 07/19/18 17:06 Ur Specific [place] >= 1.030 (1.005-1.035) 07/19/18 17:06 Urine Protein Negative mg/dL (<30 mg/dL) 07/19/18 17:06 Urine Glucose (UA) Negative mg/dL (NEGATIVE) 07/19/18 17:06 Urine Ketones Negative mg/dL (NEGATIVE) 07/19/18 17:06 Urine Blood Small (NEGATIVE) H 07/19/18 17:06 Urine Nitrate Negative (NEGATIVE) 07/19/18 17:06 Urine Bilirubin Small (NEGATIVE) H 07/19/18 17:06 Urine Urobilinogen >=8.0 E.U./dL (<1 E.U./dL) 07/19/18 17:06 Ur Leukocyte Esterase Negative Michelle/uL (NEGATIVE) 07/19/18 17:06 Urine RBC 15 - 20 /hpf (0-2) H 07/19/18 17:06 Urine WBC 5 - 10 /hpf (0-6) H 07/19/18 17:06 Ur Epithelial Cells 3 - 4 /hpf (0-5) 07/19/18 17:06 Amorphous Sediment Few /hpf (NONE) 07/15/18 23:30 Urine Bacteria None /hpf (NONE) 07/15/18 23:30 Hyaline Casts 0 - 2 /hpf (NONE) 07/19/18 17:06 Fine Granular Casts 0 - 2 /hpf (NONE) 07/15/18 23:30 IgG, Serum (MS) 210.5 mg/dl h 07/16/18 09:10 Salicylates 1 mg/dL (2.0-20.0) L 07/16/18 09:10 Urine Opiates Screen Positive (NEGATIVE) H 07/19/18 17:06 Urine Methadone Screen Negative (NEGATIVE) 07/19/18 17:06 Acetaminophen < 10.0 ug/ml (10.0-20.0) L 07/16/18 09:10 Ur Barbiturates Screen Negative (NEGATIVE) 07/19/18 17:06 Ur Phencyclidine Scrn Negative (NEGATIVE) 07/19/18 17:06 Ur Amphetamines Screen Negative (NEGATIVE) 07/19/18 17:06 U Benzodiazepines Scrn Negative (NEGATIVE) 07/19/18 17:06 U Oth Cocaine Metabols Negative (NEGATIVE) 07/19/18 17:06 U Cannabinoids Screen Negative (NEGATIVE) 07/19/18 17:06 Alcohol, Quantitative < 10 mg/dL (0-10) 07/16/18 09:10 IgG Subclass 4 210.5 mg/dl h 07/16/18 09:10 TATIANA Screen Negative (Negative) 07/16/18 09:10 Anti-Mitochondrial Ab Negative (Negative) 07/17/18 21:35 Anti-Smooth Muscle Ab Negative (Negative) 07/16/18 09:10 Liver/Kid Microsomes Ab <=20.0 U (<=20.0) 07/16/18 09:10 Hepatitis A IgM Ab Negative (NEGATIVE) 07/16/18 09:10 Hep Bs Antigen Negative (NEGATIVE) 07/16/18 09:10 Hep B Core IgM Ab Negative (NEGATIVE) 07/16/18 09:10 Hepatitis Be Antibody Not detected 07/17/18 21:35 Hepatitis C Antibody Negative (NEGATIVE) 07/16/18 09:10 Hepatitis C RNA <15 not detected IU/mL (Not Detected) 07/16/18 13:00 HCV RNA Qual (TMA) Not detected 07/16/18 06:50 HCV RNA Quant (PCR) <1.18 not detected Log IU/mL (Not Detected) 07/16/18 13:00 HSV IgM Ab Screen Negative (Negative) 07/16/18 09:10 HSV I IgM Titer 07/16/18 09:10 HSV II IgM Titer 07/16/18 09:10 HHV-6 IgM Ab Scrn Negative (Negative) 07/16/18 09:10 HIV 1&2 Ag/Ab, 4th Gen Nonreactive (Nonreactive) 07/16/18 09:10 VZV IgG Antibody 748.90 index 07/16/18 09:10 VZV IgM Antibody <=0.90 (<=0.90) 07/16/18 09:10 - Hospital Course Hospital Course: Upon Admission As per HPI: "63 yo male PMHx CAD s/p CABG, chronic LBP on oxycodone presented to the ER 07/15 complaining of bilateral lower extremity swelling over some days. As the patient's LE swelling was progressively worsening and progressed to scrotal swelling, he decided to come to the ER. As per ER note patient was ao x 3 on initial presentation however mentation progressively worsened when patient was admitted." Hospital Course Patient admitted to [facility] for further management. Patient's head CT was unremarkable for acute findings with minimal diffuse cerebral atrophy. In light of acute liver failure with AST/ALT 4606/3345 on presentation, encephalopathy high suspicion for altered mentation. Patient started on lactulose and NAC [3 consecutive doses as per protocol] with serial blood work q12 hours to monitor patient response. Abdominal u/s with duplex revealed patent portal vein with hepatopetal flow. GI was consulted for acute liver failure and broad workup was unremarkable. Patient's elevated troponin 0.[address] changes on admission- trended down and resolved. Echo revealed EF 25% with signs of pulmonary HTN and 4 chamber enlargement. As per cardio will continue diuresing with Lasix and Spironolactone. Patient on ASA 81mg and Lopressor 25mg bid at this time. Patient's b/l LE u/s negative for DVT. Procalcitonin elevation likely secondary to acute liver failure. Blood culture prelim negative x 2. Patient's hypokalemia and hypophosphatemia were noted and electrolytes were repleted. As per chart patient has extensive smoking history; on Nicoderm patch qd. Patient also on chronic opioids which were continued. Patient was originally set up for transfer to [facility] which was cancelled as he clinically improved. Patient's urine culture +Klebsiella and was started on Cefepime. Liver injury suspect ischemic in nature in light of patient's low EF, BP, and HR. Patient is candidate for ICD but will need a repeat cardiac cath once platelet count improves. Also suspect congestive hepatopathy. In light of patient's therombocytopenia, peripheral blood smear was done that showed "WBC cells manual diff- Neutrolphils 62%, Lymphocytes 22%, Monocytes 13%, Eosinophils 3%; RBC normocytic normochromic with slight anisocytosis and elayne cells present; Plt are decreased. No clumping of the plt present. Occasional large plt present. No atypical cells of immature forms identified." Heme-onc on board and believed low plt were secondary to liver disease. Patient ambulated with PT who recommended [facility]. Patient clinically improved and on day of discharge was deemed medically optimized for discharge to [facility]. Discharge Exam - Head Exam Head Exam: ATRAUMATIC, NORMAL INSPECTION - Additional Findings Additional findings: - Constitutional Appears: No Acute Distress, Unkempt, Chronically Ill - Head Exam Head Exam: ATRAUMATIC, NORMAL INSPECTION, NORMOCEPHALIC - Eye Exam Eye Exam: EOMI, Normal appearance. absent: Conjunctival injection, Scleral icterus - ENT Exam ENT Exam: Mucous Membranes Moist - Neck Exam Neck Exam: Full ROM. absent: Lymphadenopathy - Respiratory Exam Respiratory Exam: NORMAL BREATHING PATTERN. absent: Accessory Muscle Use, Rales, Rhonchi, Wheezes, Respiratory Distress - Cardiovascular Exam Cardiovascular Exam: RRR, +S1, +S2. absent: Murmur - GI/Abdominal Exam GI & Abdominal Exam: Soft, Normal Bowel Sounds. absent: Distended, Firm, Guarding, Rigid - Extremities Exam Extremities Exam: Pedal Edema (+2 b/l LE improved from day prior) Additional comments: b/l LE healing wounds noted LLE edema is better than RLE - Back Exam Back Exam: NORMAL INSPECTION. absent: rash noted - Neurological Exam Neurological Exam: Alert, Awake - Psychiatric Exam Psychiatric exam: Normal Affect, Normal Mood - Skin Skin Exam: Dry, Intact, Normal Color, Warm Discharge Plan - Follow Up Plan Condition: IMPROVED Disposition: REHAB FACILITY/REHAB UNIT Instructions: Heart Failure (DC), Pulmonary Edema (DC), Hyperkalemia (DC) Additional Instructions: You are being discharged from [facility] to [facility]. Please follow up with the following physicians after discharge from [facility]: -Cardiology Dr. Hayes within 5-7 days -PMD Dr. Unger within 7-10 days -GI Dr. Rizo within 10-14 days -Hematology-Oncology Dr. Delgado within 10-14 days Please continue taking all medications as prescribed. If symptoms return please visit your nearest Emergency Room. Referrals: Jake Unger MD [Primary Care Provider] - Joss Hayes MD [Staff Provider] - Deshaun Rizo MD [Medical Doctor] - Karis Delgado MD [Staff Provider] - <Antonio Fontenot - Last Filed: 07/23/18 19:13> Provider - Provider Date of Admission: 07/15/18 17:01 Attending physician: Antonio Fontenot MD Primary care physician: Jake Unger MD Consults: 07/15/18 16:57 Cardiology Consult Routine Comment: CABG, bilateral LE pedal edema with BNP 55760, Consulting Provider: Duane Hill Consulting Physician: Duane Hill Reason for Consult: CABG, bilateral LE pedal edema with BNP 28038, 07/15/18 17:08 Gastroenterology Consult Routine Comment: elevated LFTS, leg edema, liver failure? Consulting Provider: Deshaun Rizo V Consulting Physician: Deshaun Rizo V Reason for Consult: elevated LFTS, leg edema, liver failure? 07/16/18 01:05 Transition In Care/Readmission Reduction Routine Comment: Physician Instructions: Reason For Exam: new admission 07/16/18 02:26 Nursing Referral for Palliative Care Routine Comment: Physician Instructions: Reason For Exam: initial screening 07/17/18 08:55 Pulmonology Consult Routine Comment: Consulting Provider: Vicente Trujillo Consulting Physician: Vicente Trujillo Reason for Consult: pulmonary nodules 07/17/18 08:58 Podiatry Consult Routine Comment: Consulting Provider: Ysabel Altman Consulting Physician: Ysabel Altman Reason for Consult: b/l LE wounds 07/18/18 09:17 Consult [Physician Consult] Routine Comment: Consulting Provider: Karis Delgado Consulting Physician: Karis Delgado Reason for Consult: thrombocytopenia 07/22/18 03:28 Nursing Referral for Wound Care Routine Comment: Physician Instructions: Reason For Exam: R foot skin tear 07/22/18 08:50 TCU [Evaluation for TRCU] Routine Comment: Physician Instructions: Reason For Exam: gait dysfunction Hospital Course - Lab Results Lab Results: Micro Results 07/19/18 09:50 Blood-Venous Blood Culture - Preliminary NO GROWTH AFTER 4 DAYS 07/19/18 09:20 Blood-Venous Blood Culture - Preliminary NO GROWTH AFTER 4 DAYS 07/19/18 17:06 Urine,Clean Catch Urine Culture - Final Klebsiella Pneumoniae Ssp Pneu 07/15/18 16:00 Blood-Venous Blood Culture - Final NO GROWTH AFTER 5 DAYS 07/15/18 16:00 Blood-Venous Gram Stain - Final TEST NOT PERFORMED 07/15/18 15:30 Blood-Venous Blood Culture - Final NO GROWTH AFTER 5 DAYS 07/15/18 15:30 Blood-Venous Gram Stain - Final TEST NOT PERFORMED 07/18/18 13:00 Foot - Left Gram Stain - Final 07/18/18 13:00 Foot - Left Wound Culture - Final Staphylococcus Aureus 07/15/18 22:00 Naris MRSA Culture (Admit) - Final MRSA NOT DETECTED Most Recent Lab Values WBC 6.9 10^3/uL (4.5-11.0) D 07/23/18 07:30 RBC 4.37 10^6/uL (3.5-6.1) 07/23/18 07:30 Hgb 12.6 g/dL (14.0-18.0) L 07/23/18 07:30 Hct 39.0 % (42.0-52.0) L 07/23/18 07:30 MCV 89.2 fl (80.0-105.0) 07/23/18 07:30 MCH 28.8 pg (25.0-35.0) 07/23/18 07:30 MCHC 32.3 g/dl (31.0-37.0) 07/23/18 07:30 RDW 14.4 % (11.5-14.5) 07/23/18 07:30 Plt Count 79 10^3/uL (120.0-450.0) L 07/23/18 07:30 Manual Plt Count 50 K/mm3 (120-450) L 07/22/18 07:20 MPV 13.4 fl (7.0-11.0) H 07/23/18 07:30 Gran % 58.3 % (50.0-68.0) 07/19/18 06:20 Neut % (Auto) 60.2 % (50.0-68.0) 07/23/18 07:30 Lymph % (Auto) 27.4 % (22.0-35.0) 07/23/18 07:30 Jerome % (Auto) 10.5 % (1.0-6.0) H 07/23/18 07:30 Eos % (Auto) 1.6 % (1.5-5.0) 07/23/18 07:30 Baso % (Auto) 0.3 % (0.0-3.0) 07/23/18 07:30 Gran # 3.33 (1.4-6.5) 07/19/18 06:20 Lymph # (Auto) 1.9 (1.2-3.4) 07/23/18 07:30 Jerome # (Auto) 0.7 (0.1-0.6) H 07/23/18 07:30 Eos # (Auto) 0.1 (0.0-0.7) 07/23/18 07:30 Baso # (Auto) 0.02 K/mm3 (0.0-2.0) 07/23/18 07:30 Absolute Neuts (auto) 4.17 (1.4-6.5) 07/23/18 07:30 Differential Comment See pathology report 07/19/18 06:20 Platelet Evaluation Low (NORMAL) 07/20/18 07:30 PT 17.9 SECONDS (9.4-12.5) H 07/23/18 07:30 INR 1.58 07/23/18 07:30 APTT 29.3 Seconds (26.9-38.3) 07/23/18 07:30 Sodium 134 mmol/L (132-148) 07/23/18 07:30 Potassium 4.2 mmol/L (3.6-5.0) 07/23/18 07:30 Chloride 100 mmol/L (98-107) 07/23/18 07:30 Carbon Dioxide 33 mmol/L (21-33) 07/23/18 07:30 Anion Gap 6 (10-20) L 07/23/18 07:30 BUN 23 mg/dL (7-21) H 07/23/18 07:30 Creatinine 0.6 mg/dl (0.8-1.5) L 07/23/18 07:30 Est GFR ( Amer) > 60 07/23/18 07:30 Est GFR (Non-Af Amer) > 60 07/23/18 07:30 Random Glucose 91 mg/dL (70-110) 07/23/18 07:30 Lactic Acid 1.6 mmol/L (0.7-2.1) 07/16/18 16:17 Calcium 8.3 mg/dL (8.4-10.5) L 07/23/18 07:30 Phosphorus 3.1 mg/dL (2.5-4.5) 07/23/18 07:30 Magnesium 1.9 mg/dL (1.7-2.2) 07/23/18 07:30 Iron 29 ug/dL (45-180) L 07/16/18 10:40 TIBC 361 ug/dL (261-462) 07/16/18 10:40 % Saturation 8 % (20-55) L 07/16/18 10:40 Ferritin 306.0 ng/mL 07/16/18 10:40 Total Bilirubin 1.7 mg/dL (0.2-1.3) H 07/23/18 07:30 Direct Bilirubin 1.4 mg/dL (0.0-0.4) H 07/16/18 09:10 AST 83 U/L (17-59) H D 07/23/18 07:30 ALT 385 U/L (7-56) H 07/23/18 07:30 Alkaline Phosphatase 80 U/L (38-126) 07/23/18 07:30 Ammonia 11 umol/L (9-33) 07/16/18 09:10 Lactate Dehydrogenase 4152 U/L (333-699) H 07/16/18 09:10 Troponin I 0.03 ng/mL D 07/21/18 00:15 NT-Pro-B Natriuret Pep 64836 pg/mL (0-450) H 07/15/18 15:30 Total Protein 5.8 g/dL (5.8-8.3) 07/23/18 07:30 Albumin 2.7 g/dL (3.0-4.8) L 07/23/18 07:30 Globulin 3.2 gm/dL 07/23/18 07:30 Albumin/Globulin Ratio 0.9 (1.1-1.8) L 07/23/18 07:30 Ceruloplasmin 31 mg/dL (18-36) 07/17/18 21:35 Alpha Fetoprotein 1.4 ng/mL (0.0-7.5) 07/16/18 06:50 Procalcitonin 0.54 NG/ML (0.19-0.49) H 07/16/18 09:10 Urine Color Dark yellow (YELLOW) 07/19/18 17:06 Urine Appearance Clear (CLEAR) 07/19/18 17:06 Urine pH 6.0 (4.7-8.0) 07/19/18 17:06 Ur Specific [place] >= 1.030 (1.005-1.035) 07/19/18 17:06 Urine Protein Negative mg/dL (<30 mg/dL) 07/19/18 17:06 Urine Glucose (UA) Negative mg/dL (NEGATIVE) 07/19/18 17:06 Urine Ketones Negative mg/dL (NEGATIVE) 07/19/18 17:06 Urine Blood Small (NEGATIVE) H 07/19/18 17:06 Urine Nitrate Negative (NEGATIVE) 07/19/18 17:06 Urine Bilirubin Small (NEGATIVE) H 07/19/18 17:06 Urine Urobilinogen >=8.0 E.U./dL (<1 E.U./dL) 07/19/18 17:06 Ur Leukocyte Esterase Negative Michelle/uL (NEGATIVE) 07/19/18 17:06 Urine RBC 15 - 20 /hpf (0-2) H 07/19/18 17:06 Urine WBC 5 - 10 /hpf (0-6) H 07/19/18 17:06 Ur Epithelial Cells 3 - 4 /hpf (0-5) 07/19/18 17:06 Amorphous Sediment Few /hpf (NONE) 07/15/18 23:30 Urine Bacteria None /hpf (NONE) 07/15/18 23:30 Hyaline Casts 0 - 2 /hpf (NONE) 07/19/18 17:06 Fine Granular Casts 0 - 2 /hpf (NONE) 07/15/18 23:30 IgG, Serum (MS) 210.5 mg/dl h 07/16/18 09:10 Salicylates 1 mg/dL (2.0-20.0) L 07/16/18 09:10 Urine Opiates Screen Positive (NEGATIVE) H 07/19/18 17:06 Urine Methadone Screen Negative (NEGATIVE) 07/19/18 17:06 Acetaminophen < 10.0 ug/ml (10.0-20.0) L 07/16/18 09:10 Ur Barbiturates Screen Negative (NEGATIVE) 07/19/18 17:06 Ur Phencyclidine Scrn Negative (NEGATIVE) 07/19/18 17:06 Ur Amphetamines Screen Negative (NEGATIVE) 07/19/18 17:06 U Benzodiazepines Scrn Negative (NEGATIVE) 07/19/18 17:06 U Oth Cocaine Metabols Negative (NEGATIVE) 07/19/18 17:06 U Cannabinoids Screen Negative (NEGATIVE) 07/19/18 17:06 Alcohol, Quantitative < 10 mg/dL (0-10) 07/16/18 09:10 IgG Subclass 4 210.5 mg/dl h 07/16/18 09:10 TATIANA Screen Negative (Negative) 07/16/18 09:10 Anti-Mitochondrial Ab Negative (Negative) 07/17/18 21:35 Anti-Smooth Muscle Ab Negative (Negative) 07/16/18 09:10 Liver/Kid Microsomes Ab <=20.0 U (<=20.0) 07/16/18 09:10 Hepatitis A IgM Ab Negative (NEGATIVE) 07/16/18 09:10 Hep Bs Antigen Negative (NEGATIVE) 07/16/18 09:10 Hep B Core IgM Ab Negative (NEGATIVE) 07/16/18 09:10 Hepatitis Be Antibody Not detected 07/17/18 21:35 Hepatitis C Antibody Negative (NEGATIVE) 07/16/18 09:10 Hepatitis C RNA <15 not detected IU/mL (Not Detected) 07/16/18 13:00 HCV RNA Qual (TMA) Not detected 07/16/18 06:50 HCV RNA Quant (PCR) <1.18 not detected Log IU/mL (Not Detected) 07/16/18 13:00 HSV IgM Ab Screen Negative (Negative) 07/16/18 09:10 HSV I IgM Titer 07/16/18 09:10 HSV II IgM Titer 07/16/18 09:10 HHV-6 IgM Ab Scrn Negative (Negative) 07/16/18 09:10 HIV 1&2 Ag/Ab, 4th Gen Nonreactive (Nonreactive) 07/16/18 09:10 VZV IgG Antibody 748.90 index 07/16/18 09:10 VZV IgM Antibody <=0.90 (<=0.90) 07/16/18 09:10 - Hospital Course Hospital Course: Pt seen and examined by me. I have reviewed the note of the chief medical director and I agree with it. I have discussed the assessment and plan with the resident. I have reviewed the medications and the last labs. Pt with acute Liver function that has improved. D/C to [facility]. See the note earlier today as well.
[2018-07-23 18:17] VITALS: BP 95/56
[2018-07-23 18:29] VITALS: PULSE 77; TEMP 98.6
--- NOTE | 2018-07-24 01:35 | PN ---
DATE: 07/23/2018 SUBJECTIVE: The patient is seen sitting in bed, on telemetry. He is currently comfortable. He continues to have some peripheral edema. He denies any dyspnea. CURRENT MEDICATIONS: Include Aldactone 25 mg b.i.d., aspirin, Lasix 40 mg daily, metoprolol 25 mg b.i.d., Maxipime, Neutra-Phos, and Nicoderm. OBJECTIVE: GENERAL: He is a chronically ill-appearing, middle-aged man. VITAL SIGNS: Blood pressure is 94/60 with pulse of 70, respirations are 16. He is afebrile. HEENT: No JVD. CHEST: Bilateral scattered rhonchi. HEART: PMI displaced laterally with soft tones noted. ABDOMEN: Soft, nontender with bowel sounds. EXTREMITIES: 2+ edema of both lower extremities. DIAGNOSTIC DATA: Potassium 4.2, BUN and creatinine 23 and 0.6. White count 6.9, hemoglobin and hematocrit 12.6 and 39 with platelet count of 79,000. IMPRESSION: 1. Decompensated congestive heart failure, systolic, [id number]. 2. Known coronary disease, status post remote bypass surgery. 3. Severe thrombocytopenia, somewhat improved. 4. Recent nonsustained ventricular tachycardia. RECOMMENDATIONS: Diuretic regimen should continue at the present time. Negative fluid balance should be maintained. Rest of his cardiac medications will continue unchanged. An eventual cardiac catheterization to assess the current status of his coronary anatomy bypass surgery will be reasonable. This will be deferred until his thrombocytopenia is addressed and corrected. Eventual prophylactic ICD may be necessary. Need for compliance with his medical regimen and medical followup was strongly encouraged. We will continue to follow. Joss Hayes MD
== END 2018-07-23 21:26 | DRG 441 ==
LOC: ED 13:23 → ERH 17:01 → CCU 21:12 → 5RNO 07-19 10:59 → 2RSO 07-21 05:13
PROVIDERS: ADMIT Internal Medicine Nephrology; ATTEND Internal Medicine Nephrology
DX: K72.00 Acute and subacute hepatic failure without coma (principal); I50.23 Acute on chronic systolic (congestive) heart failure; N17.9 Acute kidney failure, unspecified; I47.2 Ventricular tachycardia; D68.9 Coagulation defect, unspecified; N39.0 Urinary tract infection, site not specified; L03.115 Cellulitis of right lower limb; L03.116 Cellulitis of left lower limb; B96.1 Klebsiella pneumoniae [K. pneumoniae] as the cause of diseases classified elsewhere; I25.10 Atherosclerotic heart disease of native coronary artery without angina pectoris; E87.5 Hyperkalemia; E87.6 Hypokalemia; I08.1 Rheumatic disorders of both mitral and tricuspid valves; I27.20 Pulmonary hypertension, unspecified; I44.7 Left bundle-branch block, unspecified; N20.0 Calculus of kidney; M43.10 Spondylolisthesis, site unspecified; D69.6 Thrombocytopenia, unspecified; E83.39 Other disorders of phosphorus metabolism; F17.200 Nicotine dependence, unspecified, uncomplicated; N50.89 Other specified disorders of the male genital organs; L08.89 Other specified local infections of the skin and subcutaneous tissue; B95.61 Methicillin susceptible Staphylococcus aureus infection as the cause of diseases classified elsewhere; M54.5 Low back pain; Z79.891 Long term (current) use of opiate analgesic; I25.2 Old myocardial infarction; Z95.1 Presence of aortocoronary bypass graft; Z91.14 Patient's other noncompliance with medication regimen

== ENCOUNTER 2018-08-16 12:25 | Inpatient (IN) | payer BC ==
--- NOTE | 2018-08-16 12:59 | ED PDOC ---
Arrival/HPI - General Chief Complaint: Lower Extremity Problem/Injury Time Seen by Provider: 08/16/18 12:36 Historian: Patient, Spouse - History of Present Illness Narrative History of Present Illness (Text): 08/16/18 12:56 A 63 year old male, whose past medical hisotry includes CAD s/p CABG, chronic LBP on oxycodone, presents to the emergency department for further evaluation of an abrasion to his left leg. The patient was advised by Dr. Unger to come into the emergency department for further evaluation as the patient was being evaluated in the office. The patient reports that Dr. Unger wanted him to be checked for infection. The patient denies fevers, chills, headache, dizziness, chest pain, shortness of breath, dyspnea on exertion, cough, abdominal pain, nausea, vomiting, diarrhea, back pain, neck pain, urinary/bowel changes, or any other complaint. PMD: Dr. Unger Support Service Tech: Dr. Hill Symptom Onset: Gradual Symptom Course: Unchanged Activities at Onset: Rest, Light Context: Home Past Medical History - Provider Review Nursing Documentation Reviewed: Yes - Infectious Disease Hx of Infectious Diseases: None - Cardiac Hx Cardiac Disorders: Yes (CABG) - Pulmonary Hx Respiratory Disorders: No - Neurological Hx Neurological Disorder: Yes Other/Comment: Brain Aneurism - HEENT Hx HEENT Disorder: No - Renal Hx Renal Disorder: No - Endocrine/Metabolic Hx Endocrine Disorders: No - Hematological/Oncological Hx Blood Disorders: No - Integumentary Hx Dermatological Disorder: Yes Other/Comment: rt foot lesion - Musculoskeletal/Rheumatological Hx Musculoskeletal Disorders: Yes Hx Arthritis: Yes - Gastrointestinal Hx Gastrointestinal Disorders: No - Genitourinary/Gynecological Hx Genitourinary Disorders: No - Psychiatric Hx Psychophysiologic Disorder: Yes (night terrors. Patient screams in his sleep.) Hx Anxiety: Yes Hx Depression: Yes Hx Substance Use: No - Surgical History Hx Cardiac Catheterization: Yes Family/Social History - Physician Review Nursing Documentation Reviewed: Yes Family/Social History: No Known Family HX Smoking Status: Heavy Smoker > 10 Cigarettes Daily Hx Alcohol Use: No Hx Substance Use: No Allergies/Home Meds Allergies/Adverse Reactions: Allergies No Known Allergies Allergy (Verified 08/16/18 12:29) Home Medications: Home Meds Medication Instructions Recorded Confirmed Furosemide [Lasix] 40 mg PO BID 08/16/18 08/16/18 Review of Systems - Physician Review All systems were reviewed & negative as marked: Yes - Review of Systems Constitutional: absent: Fevers Respiratory: absent: SOB Physical Exam - Physical Exam Narrative Physical Exam (Text): 08/16/18 12:58 Constitutional: No acute distress. Head: Normocephalic. Atraumatic. Eyes: PERRL. ENT: Moist mucous membranes. Neck: Supple. Cardiovascular: Regular rate. Chest: No tenderness. Respiratory: Clear to auscultation bilaterally. GI: Soft. Nontender. Nondistended. Back: No CVA tenderness. Musculoskeletal: No tenderness of extremities. Bilateral lower extremity pitti ng edema. Skin: No rash. Lower lateral leg area of erythema, blanching, and weeping. Neurologic: Alert, no focal deficit. Vital Signs Reviewed: Yes Vital Signs Temp Pulse Resp BP Pulse Ox 08/16/18 12:40 98.8 F 71 16 99/76 L 98 08/16/18 12:32 98.1 F 66 17 100/62 98 Temperature: Afebrile Blood Pressure: Normal Pulse: Regular Respiratory Rate: Normal Appearance: Positive for: Well-Appearing, Non-Toxic, Comfortable Pain Distress: None Mental Status: Positive for: Alert and Oriented X 3 Medical Decision Making ED Course and Treatment: 08/16/18 12:59 Impression: A 63 year old male presents to the emergency department for further evaluation of an abrasion to the left lower leg. Patient was advised to come into the emergency department by his PMD for further evaluation of possible infection. Plan: -- EKG -- Chest X-ray -- Blood/ Urine Culture -- Urinalysis -- Labs -- Vancomycin -- Reassess and disposition Prior Visits: Notes and results from previous visits were reviewed. Patient was seen in the emergency department 07/15 for worsening bilateral lower extremity swelling. Patient was admitted to Telemetry for further management. Patient diagnosed with acute liver failure as a result of elevated liver enzymes and sudden onset CHF. Patient's EF 25% . Progress Notes: Chest X-ray Dictator : Sen Vergara MD Report Date : 08/16/2018 13:56:10 IMPRESSION: No active disease. EKG: Ordered, reviewed, and independently interpreted the EKG. Rate : 60 BPM Rhythm : NSR Interpretation : No St elevations. T wave inversions lateral. Comparison : Same as previous. 08/16/18 14:25: Case discussed in detail with Dr. Unger. States patient with mutliple falls at home with severe swelling of lower extremities. Dr. Fontenot accepts patient for admission. - Lab Interpretations I have reviewed the lab results: Yes - EKG Interpretation Interpreted by ED Physician: Yes Type: 12 lead EKG - Scribe Statement The provider has reviewed the documentation as recorded by the Scribe Janene Solorio Provider Scribe Attestation: All medical record entries made by the Scribe were at my direction and personally dictated by me. I have reviewed the chart and agree that the record accurately reflects my personal performance of the history, physical exam, medical decision making, and the department course for this patient. I have also personally directed, reviewed, and agree with the discharge instructions and disposition. Disposition/Present on Arrival - Present on Arrival Any Indicators Present on Arrival: No History of DVT/PE: No History of Uncontrolled Diabetes: No Urinary Catheter: No History of Decub. Ulcer: No History Surgical Site Infection Following: CABG - Mediastinitis - Disposition Have Diagnosis and Disposition been Completed?: Yes Diagnosis: Elevated brain natriuretic peptide (BNP) level, Cellulitis, CHF (congestive heart failure) Disposition: HOSPITALIZED Disposition Time: 14:13 Patient Plan: Admission, Telemetry Condition: FAIR
[2018-08-16] MEDS ORDERED: Vancomycin 1gm in NS 250ml 1 GM/250 ML BAG IVPB STA (13:03)
[2018-08-16 13:34] LABS: BASO # 0.03 K/mm3 (0.0-2.0); BASO % 0.4 % (0.0-3.0); EOS # 0.4 (0.0-0.7); EOS % 4.8 % (1.5-5.0); HEMOGLOBIN 11.7 g/dL (14.0-18.0); LYMPH % 27.3 % (22.0-35.0); MEAN CELL VOLUME 92.9 fl (80.0-105.0); MEAN CORPUSCULAR HEMOGLOBIN 29.8 pg (25.0-35.0); MEAN CORPUSCULAR HGB CONC 32.1 g/dl (31.0-37.0); MEAN PLATELET VOLUME 12.7 fl (7.0-11.0); MONO # 0.6 (0.1-0.6); MONO % 7.7 % (1.0-6.0); RBC 3.92 10^6/uL (3.5-6.1); RED CELL DISTRIBUTION WIDTH 16.9 % (11.5-14.5); WHITE BLOOD COUNT 7.3 10^3/uL (4.5-11.0)
[2018-08-16 13:43] LABS: INR 1.34; PARTIAL THROMBOPLASTIN TIME 32.4 Seconds (26.9-38.3); PROTHROMBIN TIME 15.1 SECONDS (9.4-12.5)
[2018-08-16 13:45] LABS: ALB/GLOB RATIO 1.1 (1.1-1.8); ALBUMIN 3.7 g/dL (3.0-4.8); ALT/SGPT 37 U/L (7-56); AST/SGOT 36 U/L (17-59); BLOOD UREA NITROGEN 20 mg/dL (7-21); CALCIUM 8.5 mg/dL (8.4-10.5); GFR NON-AFRICAN AMERICAN > 60
[2018-08-16 13:53] LABS: B-TYPE NATRIURETIC PEPTIDE 7970 pg/mL (0-450)
[2018-08-16 13:59] LABS: URINE BILIRUBIN NEGATIVE (NEGATIVE); URINE BLOOD NEGATIVE (NEGATIVE); URINE GLUCOSE (UA) NEGATIVE (NEGATIVE); URINE LEUKOCYTE ESTERASE NEGATIVE Leu/uL (NEGATIVE); URINE PROTEIN NEGATIVE mg/dL (<30 mg/dL)
--- NOTE | 2018-08-16 13:59 | RAD ---
Date of service: 08/16/2018 HISTORY: pitting edema COMPARISON: No prior. FINDINGS: LUNGS: No active pulmonary disease. PLEURA: No significant pleural effusion identified, no pneumothorax apparent. CARDIOVASCULAR: No aortic atherosclerotic calcification present. Mild cardiomegaly no pulmonary vascular congestion. OSSEOUS STRUCTURES: Sternal wires VISUALIZED UPPER ABDOMEN: Normal. OTHER FINDINGS: None. IMPRESSION: No active disease.
[2018-08-16 14:00] LABS: URINE APPEARANCE CLEAR (CLEAR); URINE COLOR YELLOW (YELLOW)
[2018-08-16] MEDS ORDERED: oxyCODONE 20 mg ER Tab (oxyCONTIN) PO STA (14:38)
--- NOTE | 2018-08-16 14:58 | CP.PCM.HP ---
<FoxSlava benitez Miladis - Last Filed: 08/16/18 16:03> History of Present Illness - History of Present Illness History of Present Illness: PGY-2 H&P for Dr Fontenot Mr Rodriguez is a 63 year old male with a PMHx of CAD s/p CABG, systolic CHF, chronic low back pain 2/2 disc degeneration, who presents to our ED for worsening b/l LE swelling and left lateral lower leg skin changes. Patient called his PMD Dr Unger who advised him to come to the ER. Patient was seen by his hvac sales engineer Dr Hill 1 week ago who told patient to double his diuretics dose however patient did not do this as "we were low on money". Patient stated his left lateral leg skin changes are due to sustaining a cut as he was walking down the stairs. He denied pain at the laceration site. He denied shortness of breath, fevers, GI issues, chills. He stated his has lost his balance a few times in the past 2 weeks and fell - he sustained a bruise on his forehead after a mechanical fall "about 1 week ago" in the bathroom. He denies headache, blurry vision, incontinence, LOC, seizure activity. PMHx: CAD s/p CABG, systolic CHF, chronic low back pain 2/2 disc degeneration PSHx: CABG 15 years ago Allergies: NKA Home Meds: as emr SocialHx: 1/2 pack per day smoker, denies alcohol or illicits FamHx: several family members with heart disease Present on Admission - Present on Admission Any Indicators Present on Admission: No Review of Systems - Review of Systems All systems: reviewed and no additional remarkable complaints except (as stated in HPI) Past Patient History - Infectious Disease Hx of Infectious Diseases: None - Past Social History Smoking Status: Heavy Smoker > 10 Cigarettes Daily - CARDIAC Hx Cardiac Disorders: Yes (CABG) - PULMONARY Hx Respiratory Disorders: No - NEUROLOGICAL Hx Neurological Disorder: Yes Other/Comment: Brain Aneurism - HEENT Hx HEENT Problems: No - RENAL Hx Chronic Kidney Disease: No - ENDOCRINE/METABOLIC Hx Endocrine Disorders: No - HEMATOLOGICAL/ONCOLOGICAL Hx Blood Disorders: No - INTEGUMENTARY Hx Dermatological Problems: Yes Other/Comment: rt foot lesion - MUSCULOSKELETAL/RHEUMATOLOGICAL Hx Musculoskeletal Disorders: Yes Hx Arthritis: Yes - GASTROINTESTINAL Hx Gastrointestinal Disorders: No - GENITOURINARY/GYNECOLOGICAL Hx Genitourinary Disorders: No - PSYCHIATRIC Hx Psychophysiologic Disorder: Yes (night terrors. Patient screams in his sleep.) Hx Anxiety: Yes Hx Depression: Yes Hx Substance Use: No - SURGICAL HISTORY Hx Cardiac Catheterization: Yes Meds Allergies/Adverse Reactions: Allergies Allergy/AdvReac Type Severity Reaction Status Date / Time No Known Allergies Allergy Verified 08/16/18 12:29 Physical Exam - Constitutional Appears: Well, Non-toxic, No Acute Distress - Head Exam Head Exam: ATRAUMATIC, NORMAL INSPECTION - Eye Exam Eye Exam: EOMI, Normal appearance, PERRL. absent: Scleral icterus - ENT Exam ENT Exam: Mucous Membranes Moist - Neck Exam Neck exam: Positive for: Normal Inspection - Respiratory Exam Respiratory Exam: Clear to Auscultation Bilateral, NORMAL BREATHING PATTERN. absent: Rales, Rhonchi, Wheezes - Cardiovascular Exam Cardiovascular Exam: REGULAR RHYTHM, JVD, +S1, +S2. absent: Tachycardia, Systolic Murmur - GI/Abdominal Exam GI & Abdominal Exam: Normal Bowel Sounds, Soft. absent: Distended, Firm, Guarding, Tenderness - Extremities Exam Extremities exam: Positive for: normal capillary refill, pedal edema, pedal pulses present. Negative for: tenderness - Neurological Exam Neurological exam: Alert, Oriented x3 - Psychiatric Exam Psychiatric exam: Normal Affect, Normal Mood - Skin Skin Exam: Dry, Intact, Warm Additional comments: -mild erythema at lateral lower leg, normal temperature, non-tender, minor laceration -small 1cm diameter bruise on left forehead -2cm bruise on left shoulder Results - Vital Signs Recent Vital Signs: Last Vital Signs Temp 98.8 F 08/16/18 12:40 Pulse 71 08/16/18 12:40 Resp 16 08/16/18 12:40 BP 128/62 08/16/18 14:23 Pulse Ox 98 08/16/18 12:40 - Labs Result Diagrams: 08/16/18 13:20 08/16/18 13:20 Labs: Laboratory Results - last 24 hr 08/16/18 08/16/18 08/16/18 13:20 13:20 13:20 WBC 7.3 RBC 3.92 Hgb 11.7 L Hct 36.4 L MCV 92.9 D MCH 29.8 MCHC 32.1 RDW 16.9 H Plt Count 108 L MPV 12.7 H Neut % (Auto) 59.8 Lymph % (Auto) 27.3 Izard % (Auto) 7.7 H Eos % (Auto) 4.8 Baso % (Auto) 0.4 Lymph # (Auto) 2.0 Izard # (Auto) 0.6 Eos # (Auto) 0.4 Baso # (Auto) 0.03 Absolute Neuts (auto) 4.34 PT 15.1 H INR 1.34 APTT 32.4 Sodium 139 Potassium 3.8 Chloride 103 Carbon Dioxide 33 Anion Gap 7 L BUN 20 Creatinine 0.7 L Est GFR ( Amer) > 60 Est GFR (Non-Af Amer) > 60 Random Glucose 98 Calcium 8.5 Total Bilirubin 0.9 AST 36 ALT 37 Alkaline Phosphatase 80 NT-Pro-B Natriuret Pep 7970 H Total Protein 7.1 Albumin 3.7 Globulin 3.3 Albumin/Globulin Ratio 1.1 Urine Color Urine Appearance Urine pH Ur Specific [place] Urine Protein Urine Glucose (UA) Urine Ketones Urine Blood Urine Nitrate Urine Bilirubin Urine Urobilinogen Ur Leukocyte Esterase Blood Type Blood Type Confirm Antibody Screen BBK History Checked 08/16/18 08/16/18 08/16/18 13:20 13:45 13:47 WBC RBC Hgb Hct MCV MCH MCHC RDW Plt Count MPV Neut % (Auto) Lymph % (Auto) [place] % (Auto) Eos % (Auto) Baso % (Auto) Lymph # (Auto) [place] # (Auto) Eos # (Auto) Baso # (Auto) Absolute Neuts (auto) PT INR APTT Sodium Potassium Chloride Carbon Dioxide Anion Gap BUN Creatinine Est GFR ( Amer) Est GFR (Non-Af Amer) Random Glucose Calcium Total Bilirubin AST ALT Alkaline Phosphatase NT-Pro-B Natriuret Pep Total Protein Albumin Globulin Albumin/Globulin Ratio Urine Color Yellow Urine Appearance Clear Urine pH 6.0 Ur Specific [place] 1.025 Urine Protein Negative Urine Glucose (UA) Negative Urine Ketones Negative Urine Blood Negative Urine Nitrate Negative Urine Bilirubin Negative Urine Urobilinogen 2.0 H Ur Leukocyte Esterase Negative Blood Type O POSITIVE Blood Type Confirm O POSITIVE Antibody Screen Negative BBK History Checked No verified bt Assessment & Plan - Assessment and Plan (Free Text) Plan: Mr Rodriguez is a 63 year old male with a PMHx of CAD s/p CABG, systolic CHF, chronic low back pain 2/2 disc degeneration, who presents to our ED for worsening b/l LE swelling and left lateral lower leg skin changes: #Lower Extremity Swelling -2/2 to CHF, r/o dvt -patient was told to double his diuretics dose 1 week ago by his hvac sales engineer however patient did not do this -duplex venous LE performed in 06/2018 showed no evidence for DVT -f/u d-dimer - if positive we will order a LE duplex venous ultrasound -lasix 40mg ivp q12h and spiranolactone 25mg po bid #Nonpurulent Cellulitis -lateral aspect of left lower leg after suffering a cut walking down the stairs; no white count/afebrile -vanco 1g given in ED -amoxicillin/clavulanate 875mg po q12h (started 08/16) for 5 days -bacitracin topical q12h -f/u blood and urine cx #Left Forehead Bruise -07/27 to mechanical fall suffered 1 week ago in the bathroom -patient asymptomatic - no headache, blurry vision, LOC -given his thrombocytopenia and him being on aspirin we'll order a Head CT to r/o bleed #Systolic CHF -not in acute heart failure -echo from 06/2018 showed four chamber enlargement with severely reduced LV systolic function (EF 25%) with global hypokinesis, severe MR and moderate TR -ekg 08/16/18 reviewed showed normal rate and nsr however t wave inversion in lateral leads -cxr normal -probnp 7970 -continue home meds spironolactone 25mg po bid, aspirin, lopressor 25mg po bid, neutraphos 1 pkt tid -lasix iv 40mg po q12h -was not on an GENE-I or ARB - start lisinopril 2.5mg po qd with holding parameters -strict Is/Os, daily weights, head of bed 30 degrees #CAD s/p CABG #T-wave Inversions -seen in lateral leads -continue home aspirin 81mg po qd -will hold off on anticoagulation 2 to low platelets -cardiology consult, Dr Hayes #Anemia -mcv normal -f/u iron studies -iron studies noted from prior admission 1 month ago -will consider iron tablets on discharge #Thrombocytopenia -peripheral blood smear from 06/2018 showed decreased platelets without clumping, occasional large platelets presents, red blood cells are normocytic normochromic with slight anisocytosis, no atypical cells or immature forms identified -thrombocytopenia is improved from previous admission 1 month ago - at that time it was believed low plts were secondary to liver disease (liver disease was suspected to be ischemic in nature) #Low Back Pain -takes oxycodone at home to control pain - continue oxycodone 20mg po q8h prn -UDS positive for opiates -xray 06/2018 showed disc degeneration and facet arthropathy at L5-S1 #Tobacco Dependence -nicoderm patch PPx -scd's contraindicated 2/2 to swelling -AO contraindicated 2/2 low plts -heart healthy diet with 1.5L fluid restriction and 2g sodium restriction Case discussed with Dr Fontenot Decision To Admit - Pt Status Changed To: Hospital Disposition Of: Inpatient Admission - Admit Certification Admit to Inpatient:: After my assessment, the patient will require hospitalization for at least two midnights. This is because of the severity of symptoms shown, intensity of services needed, and/or the medical risk in this patient being treated as an outpatient. - . Bed Request Type: Telemetry <Antonio Fontenot S - Last Filed: 08/17/18 08:53> Results - Vital Signs Recent Vital Signs: Last Vital Signs Temp 97.9 F 08/17/18 06:00 Pulse 68 08/17/18 06:00 Resp 18 08/17/18 06:00 BP 114/77 08/17/18 06:00 Pulse Ox 97 08/16/18 18:45 - Labs Result Diagrams: 08/17/18 06:00 08/17/18 06:00 Labs: Laboratory Results - last 24 hr 08/16/18 08/16/18 08/16/18 13:20 13:20 13:20 WBC 7.3 RBC 3.92 Hgb 11.7 L Hct 36.4 L MCV 92.9 D MCH 29.8 MCHC 32.1 RDW 16.9 H Plt Count 108 L MPV 12.7 H Neut % (Auto) 59.8 Lymph % (Auto) 27.3 Izard % (Auto) 7.7 H Eos % (Auto) 4.8 Baso % (Auto) 0.4 Lymph # (Auto) 2.0 Izard # (Auto) 0.6 Eos # (Auto) 0.4 Baso # (Auto) 0.03 Absolute Neuts (auto) 4.34 PT 15.1 H INR 1.34 APTT 32.4 D-Dimer, Quantitative Sodium 139 Potassium 3.8 Chloride 103 Carbon Dioxide 33 Anion Gap 7 L BUN 20 Creatinine 0.7 L Est GFR ( Amer) > 60 Est GFR (Non-Af Amer) > 60 Random Glucose 98 Calcium 8.5 Magnesium Iron TIBC % Saturation Ferritin Total Bilirubin 0.9 AST 36 ALT 37 Alkaline Phosphatase 80 Troponin I NT-Pro-B Natriuret Pep 7970 H Total Protein 7.1 Albumin 3.7 Globulin 3.3 Albumin/Globulin Ratio 1.1 Triglycerides Cholesterol LDL Cholesterol Direct HDL Cholesterol Urine Color Urine Appearance Urine pH Ur Specific [place] Urine Protein Urine Glucose (UA) Urine Ketones Urine Blood Urine Nitrate Urine Bilirubin Urine Urobilinogen Ur Leukocyte Esterase Blood Type Blood Type Confirm Antibody Screen BBK History Checked 08/16/18 08/16/18 08/16/18 13:20 13:45 13:47 WBC RBC Hgb Hct MCV MCH MCHC RDW Plt Count MPV Neut % (Auto) Lymph % (Auto) [place] % (Auto) Eos % (Auto) Baso % (Auto) Lymph # (Auto) [place] # (Auto) Eos # (Auto) Baso # (Auto) Absolute Neuts (auto) PT INR APTT D-Dimer, Quantitative Sodium Potassium Chloride Carbon Dioxide Anion Gap BUN Creatinine Est GFR ( Amer) Est GFR (Non-Af Amer) Random Glucose Calcium Magnesium Iron TIBC % Saturation Ferritin Total Bilirubin AST ALT Alkaline Phosphatase Troponin I NT-Pro-B Natriuret Pep Total Protein Albumin Globulin Albumin/Globulin Ratio Triglycerides Cholesterol LDL Cholesterol Direct HDL Cholesterol Urine Color Yellow Urine Appearance Clear Urine pH 6.0 Ur Specific [place] 1.025 Urine Protein Negative Urine Glucose (UA) Negative Urine Ketones Negative Urine Blood Negative Urine Nitrate Negative Urine Bilirubin Negative Urine Urobilinogen 2.0 H Ur Leukocyte Esterase Negative Blood Type O POSITIVE Blood Type Confirm O POSITIVE Antibody Screen Negative BBK History Checked No verified bt 08/16/18 08/16/18 08/16/18 15:09 15:09 17:30 WBC RBC Hgb Hct MCV MCH MCHC RDW Plt Count MPV Neut % (Auto) Lymph % (Auto) [place] % (Auto) Eos % (Auto) Baso % (Auto) Lymph # (Auto) [place] # (Auto) Eos # (Auto) Baso # (Auto) Absolute Neuts (auto) PT INR APTT D-Dimer, Quantitative 784 H Sodium Potassium Chloride Carbon Dioxide Anion Gap BUN Creatinine Est GFR ( Amer) Est GFR (Non-Af Amer) Random Glucose Calcium Magnesium Iron 55 TIBC 342 % Saturation 16 L Ferritin Total Bilirubin AST ALT Alkaline Phosphatase Troponin I < 0.01 D NT-Pro-B Natriuret Pep Total Protein Albumin Globulin Albumin/Globulin Ratio Triglycerides Cholesterol LDL Cholesterol Direct HDL Cholesterol Urine Color Urine Appearance Urine pH Ur Specific [place] Urine Protein Urine Glucose (UA) Urine Ketones Urine Blood Urine Nitrate Urine Bilirubin Urine Urobilinogen Ur Leukocyte Esterase Blood Type Blood Type Confirm Antibody Screen BBK History Checked 08/16/18 08/16/18 08/17/18 17:30 23:20 06:00 WBC 7.3 RBC 4.23 Hgb 12.4 L Hct 39.2 L MCV 92.7 MCH 29.3 MCHC 31.6 RDW 16.9 H Plt Count 104 L MPV 12.8 H Neut % (Auto) 64.7 Lymph % (Auto) 20.8 L [place] % (Auto) 8.5 H Eos % (Auto) 5.9 H Baso % (Auto) 0.1 Lymph # (Auto) 1.5 [place] # (Auto) 0.6 Eos # (Auto) 0.4 Baso # (Auto) 0.01 Absolute Neuts (auto) 4.69 PT INR APTT D-Dimer, Quantitative Sodium Potassium Chloride Carbon Dioxide Anion Gap BUN Creatinine Est GFR ( Amer) Est GFR (Non-Af Amer) Random Glucose Calcium Magnesium Iron TIBC % Saturation Ferritin 63.7 Total Bilirubin AST ALT Alkaline Phosphatase Troponin I < 0.01 NT-Pro-B Natriuret Pep Total Protein Albumin Globulin Albumin/Globulin Ratio Triglycerides Cholesterol LDL Cholesterol Direct HDL Cholesterol Urine Color Urine Appearance Urine pH Ur Specific [place] Urine Protein Urine Glucose (UA) Urine Ketones Urine Blood Urine Nitrate Urine Bilirubin Urine Urobilinogen Ur Leukocyte Esterase Blood Type Blood Type Confirm Antibody Screen BBK History Checked 08/17/18 06:00 WBC RBC Hgb Hct MCV MCH MCHC RDW Plt Count MPV Neut % (Auto) Lymph % (Auto) [place] % (Auto) Eos % (Auto) Baso % (Auto) Lymph # (Auto) [place] # (Auto) Eos # (Auto) Baso # (Auto) Absolute Neuts (auto) PT INR APTT D-Dimer, Quantitative Sodium 139 Potassium 4.1 Chloride 103 Carbon Dioxide 32 Anion Gap 8 L BUN 18 Creatinine 0.7 L Est GFR ( Amer) > 60 Est GFR (Non-Af Amer) > 60 Random Glucose 96 Calcium 8.6 Magnesium 1.8 Iron TIBC % Saturation Ferritin Total Bilirubin 1.1 AST 29 ALT 32 Alkaline Phosphatase 72 Troponin I NT-Pro-B Natriuret Pep Total Protein 7.0 Albumin 3.6 Globulin 3.4 Albumin/Globulin Ratio 1.1 Triglycerides 89 Cholesterol 131 LDL Cholesterol Direct 79 HDL Cholesterol 37 Urine Color Urine Appearance Urine pH Ur Specific [place] Urine Protein Urine Glucose (UA) Urine Ketones Urine Blood Urine Nitrate Urine Bilirubin Urine Urobilinogen Ur Leukocyte Esterase Blood Type Blood Type Confirm Antibody Screen BBK History Checked Assessment & Plan - Assessment and Plan (Free Text) Plan: Pt seen and examined by me. I have reviewed the note of the medical genetics director and I agree with it. I have discussed the assessment and plan with the resident. I have reviewed the medications and the last labs. L leg cellulitis. He will need IV Abx and ID evaluation. He has LE edema that is mild. It has improved significantly from the last admission and from [facility] when he was last seen. He has chronic lower back pain and was adivsed to have someone bring in his bottles so that we can confirm his medications. He was asking fro Oxy 30mg 5x/day along with the Oxycontin tid seems high. He has thrombocytopenia that is chronic but improved. He will continue with Lasix and Aldactone. CHF chronic, systolic dysfunction. He smokes and has been adivsed to quit. Will place him on Nicoderm patch. Will D/C tel. Pt was seen today.
[2018-08-16] MEDS: oxyCODONE 20 mg ER Tab (oxyCONTIN) PO SCH ×2 (16:03→23:15)
[2018-08-16] MEDS: Amoxicillin-Clav 875-125 mg Tab PO SCH (16:14)
[2018-08-16 17:52] LABS: IRON 55 ug/dL (45-180)
[2018-08-16] MEDS ORDERED: Potassium & Sodium Phosphate PO SCH (18:00)
[2018-08-16 18:01] LABS: % IRON SATURATION 16 % (20-55); TOTAL IRON BINDING CAPACITY 342 ug/dL (261-462)
--- NOTE | 2018-08-16 18:18 | CT ---
Date of service: 08/16/2018 PROCEDURE: CT HEAD WITHOUT CONTRAST. HISTORY: s/p multiple mechanical falls COMPARISON: 07/16/2018. TECHNIQUE: Axial computed tomography images were obtained through the head/brain without intravenous contrast. Supplemental Coronal and Sagittal projections created and reviewed. Radiation dose: Total exam DLP = 1382.90 mGy-cm. This CT exam was performed using one or more of the following dose reduction techniques: Automated exposure control, adjustment of the mA and/or kV according to patient size, and/or use of iterative reconstruction technique. FINDINGS: HEMORRHAGE: No intracranial hemorrhage. BRAIN: No mass effect or edema. Cortical atrophy and chronic microvascular ischemic change. VENTRICLES: Unremarkable. No hydrocephalus. CALVARIUM: Unremarkable. PARANASAL SINUSES: Unremarkable as visualized. No significant inflammatory changes. MASTOID AIR CELLS: Unremarkable as visualized. No inflammatory changes. OTHER FINDINGS: None. IMPRESSION: No acute intracranial abnormalities. No significant findings to account for the clinical presentation. No significant interval change compared to the prior examination(s).
[2018-08-16 18:36] VITALS: BMI 24.4
[2018-08-16] MEDS ORDERED: Influenza Vaccine 60 mcg/0.5 mL SYR (4YR UP) IM ONE (18:37)
[2018-08-16] MEDS ORDERED: Pneumococcal 23-Valent Vaccine IM ONE (18:37)
--- NOTE | 2018-08-16 23:40 | CARD ---
APPROVED REPORT Date of service: 08/16/2018 EKG Measurement Heart [id number] <Conclusion> Normal sinus rhythm Nonspecific intraventricular block T wave abnormality, consider lateral ischemia Abnormal ECG
[2018-08-17] MEDS ORDERED: oxyCODONE 5 mg Immediate Release Tab PO ONE (02:50)
[2018-08-17] MEDS: Amoxicillin-Clav 875-125 mg Tab PO SCH (03:16)
[2018-08-17 07:00] LABS: ALB/GLOB RATIO 1.1 (1.1-1.8); ALBUMIN 3.6 g/dL (3.0-4.8); ALT/SGPT 32 U/L (7-56); AST/SGOT 29 U/L (17-59); BLOOD UREA NITROGEN 18 mg/dL (7-21); CALCIUM 8.6 mg/dL (8.4-10.5); GFR NON-AFRICAN AMERICAN > 60; HDL CHOLESTEROL 37 mg/dL (29-60)
[2018-08-17 07:11] LABS: LDL CHOLESTEROL 79 mg/dL (0-129)
[2018-08-17 07:27] LABS: BASO # 0.01 K/mm3 (0.0-2.0); BASO % 0.1 % (0.0-3.0); EOS # 0.4 (0.0-0.7); EOS % 5.9 % (1.5-5.0); HEMOGLOBIN 12.4 g/dL (14.0-18.0); LYMPH # 1.5 (1.2-3.4); LYMPH % 20.8 % (22.0-35.0); MEAN CELL VOLUME 92.7 fl (80.0-105.0); MEAN CORPUSCULAR HEMOGLOBIN 29.3 pg (25.0-35.0); MEAN CORPUSCULAR HGB CONC 31.6 g/dl (31.0-37.0); MEAN PLATELET VOLUME 12.8 fl (7.0-11.0); MONO # 0.6 (0.1-0.6); MONO % 8.5 % (1.0-6.0); RBC 4.23 10^6/uL (3.5-6.1); RED CELL DISTRIBUTION WIDTH 16.9 % (11.5-14.5); WHITE BLOOD COUNT 7.3 10^3/uL (4.5-11.0)
[2018-08-17] MEDS: SACUBITRIL 24mg/VALSARTAN 26mg tab PO SCH ×2 (09:30→21:01)
--- NOTE | 2018-08-17 09:47 | CON ---
DATE: 08/17/2018 REQUESTING PHYSICIAN: Dr. Fontenot REASON FOR CONSULTATION: Dyspnea, leg edema. HISTORY: This is a 63-year-old man known to us with a history of coronary artery disease, status post prior bypass surgery, and severe LV dysfunction, who was recently admitted with decompensated congestive heart failure. He was found to have severe LV dysfunction at that time. He was seen in Dr. Unger's office yesterday and noted to have severe abrasion on his left leg. He was advised evaluation. He has also had worsening ankle edema and had recently been advised a larger dose of oral diuretics. When seen in the emergency room, he was treated with IV Lasix and advised admission. PAST HISTORY: Notable for problems mentioned above. He has chronic lumbar disc disease and back pain and is maintained on analgesics for this. CURRENT MEDICATIONS: Include spironolactone 25 mg b.i.d., aspirin, Augmentin, Lasix 40 mg IV every 2 hours, metoprolol 25 mg b.i.d., Neutra-Phos, Nicoderm, oxycodone, Zestril. ALLERGIES: NONE. SOCIAL HISTORY: He is a smoker of half pack per day. He denies alcohol use at the present time. He is , lives with his . FAMILY HISTORY: Several family members have premature heart disease. REVIEW OF SYSTEMS: Ten-point review of systems is otherwise unremarkable. PHYSICAL EXAMINATION: GENERAL: He is a middle-aged man, appears comfortable at rest. VITAL SIGNS: His blood pressure is 114/76 with a pulse of 68, respirations are 16. He is afebrile. HEENT: Normocephalic, atraumatic. NECK: Supple. No JVD noted. CHEST: Bibasilar rales. HEART: PMI displaced laterally with soft tones noted. ABDOMEN: Soft, nontender, with normoactive bowel sounds. Mild hepatomegaly is present. EXTREMITIES: 2+ leg edema is noted. A large extensive abrasion is noted on his left lateral leg. SKIN: Warm and dry. PSYCHIATRIC: Normal mood and affect. NEUROLOGIC: Alert and oriented x3. No gross motor or sensory deficits notable. DIAGNOSTIC DATA: Potassium 4.1. BUN and creatinine of 18 and 0.7. White count 7.3, hemoglobin and hematocrit of 11.7 and 36.4 with a platelet count of 108,000. PT and PTT of 15.1 and 32.4. D-dimer 784. BNP 7970. Two sets of cardiac enzymes are negative. Electrocardiogram reveals sinus rhythm with nonspecific interventricular conduction delay, anterolateral T-wave inversions are present which are chronic. Chest x-ray reveals enlarged cardiac silhouette with post-sternotomy changes and clear lung luo. IMPRESSION: 1. Decompensated congestive heart failure, acute on chronic, systolic. 2. Coronary artery disease, status post prior bypass surgery. 3. Persistent tobacco abuse. 4. Severe mitral regurgitation. 5. Moderate tricuspid regurgitation. RECOMMENDATIONS: Continued IV diuretic therapy is advised at this time. His oral medications will be continued for now. If his blood pressure tolerates, a trial of Entresto can be considered. The need for smoking abstinence was discussed with him. Sodium and fluid restriction are advised. Compression stocking use will be recommended as well. Thank you for this consultation. We will be happy to follow along during his hospital course. Joss Hayes MD
[2018-08-17] MEDS ORDERED: oxyCODONE 20 mg ER Tab (oxyCONTIN) PO SCH ×2 (10:00→14:39)
[2018-08-17] MEDS ORDERED: cefTRIAXone 1 gm 1 GM/100 ML BAG IVPB SCH (10:00)
[2018-08-17] MEDS: oxyCODONE 30 mg Immediate Release Tab PO PRN ×2 (15:08→21:01)
[2018-08-17] MEDS: Bacitracin 500 Units/gm Oint Foilpak UD TOP SCH (18:15)
--- NOTE | 2018-08-17 21:32 | CON ---
DATE OF CONSULTATION: 08/17/2018 The patient is seen earlier in Room 263, Bed 1. CHIEF COMPLAINT: Leg erythema for several days. HISTORY OF PRESENT ILLNESS: This is a 63-year-old male with past medical history significant for coronary artery disease, chronic back pain, coronary artery bypass graft, tobacco use and alcohol use, who was admitted through the emergency room with diagnosis of cellulitis and congestive heart failure. In the emergency room, the patient was seen by Dr. Joss Puckett who stated that the patient was complaining of lower extremity problem or injury and had an abrasion of his left leg and was seen by Dr. Unger in the office who sent the patient to the emergency room for further evaluation. No shortness of breath. There are no fevers, no chest pain, no cough. No abdominal pain, nausea or vomiting. PAST MEDICAL HISTORY: Significant for coronary artery disease, chronic back pain, arthritis, anxiety and depression. PAST SURGICAL HISTORY: Significant for cardiac catheterization and coronary artery bypass graft. SOCIAL HISTORY: Continues to be a smoker. MEDICATIONS AT HOME: Lasix. ALLERGIES: THE PATIENT HAS NO KNOWN ALLERGIES. REVIEW OF SYSTEMS: A 12-point review of systems is performed. PHYSICAL EXAMINATION: GENERAL: The patient is in bed, in no acute distress, answering questions appropriately. VITAL SIGNS: Temperature of 97, heart rate of 69, respiratory rate of 18, blood pressure of 114/70. HEENT: Unremarkable. NECK: Supple. LUNGS: Decreased breath sounds. HEART: Normal S1, S2. ABDOMEN: Soft, nontender. EXTREMITIES: Examination of the left leg reveals that the patient has multiple abrasions, no evidence of cellulitis, not warm to touch. LABORATORY EXAMINATION: White count of 7.3. Coagulation is noted. Chemistries reveal a BUN of 20, creatinine of 0.7. BNP is 7970. Urinalysis is noted. Microbiology reveals the blood cultures are negative. Review of urine cultures from 06/2018 reveals Klebsiella in the urine. Dr. Hayes's consultation is reviewed. Dr. Fontenot's history and physical examination is reviewed. The patient also had a CAT scan of the head yesterday, which showed no acute findings, and a chest x-ray, which is also negative. ASSESSMENT/PLAN: This is a 63-year-old male with coronary artery disease, chronic back pain, arthritis, anxiety, depression, admitted after scraping his leg on an air conditioning. #1 is the left leg abrasions, no evidence of cellulitis, no evidence of infection in a patient with acute systolic congestive heart failure on top of chronic congestive heart failure. We will discontinue the antibiotics and his local wound care. The patient is at risk for developing nosocomial infections. We will follow closely with you. Kip Perla MD
[2018-08-18] MEDS: oxyCODONE 30 mg Immediate Release Tab PO PRN ×4 (02:51→20:22)
[2018-08-18] MEDS: Bacitracin 500 Units/gm Oint Foilpak UD TOP SCH (05:33)
[2018-08-18 07:20] LABS: BASO # 0.02 K/mm3 (0.0-2.0); BASO % 0.3 % (0.0-3.0); EOS # 0.5 (0.0-0.7); EOS % 6.9 % (1.5-5.0); HEMOGLOBIN 13.6 g/dL (14.0-18.0); LYMPH # 2.4 (1.2-3.4); LYMPH % 32.4 % (22.0-35.0); MEAN CELL VOLUME 92.4 fl (80.0-105.0); MEAN CORPUSCULAR HEMOGLOBIN 29.4 pg (25.0-35.0); MEAN CORPUSCULAR HGB CONC 31.9 g/dl (31.0-37.0); MEAN PLATELET VOLUME 12.7 fl (7.0-11.0); MONO # 0.6 (0.1-0.6); MONO % 8.1 % (1.0-6.0); RBC 4.62 10^6/uL (3.5-6.1); RED CELL DISTRIBUTION WIDTH 17.1 % (11.5-14.5); WHITE BLOOD COUNT 7.5 10^3/uL (4.5-11.0)
[2018-08-18 07:41] LABS: ALBUMIN 3.4 g/dL (3.0-4.8); ALT/SGPT 27 U/L (7-56); AST/SGOT 33 U/L (17-59); BLOOD UREA NITROGEN 14 mg/dL (7-21); CALCIUM 8.8 mg/dL (8.4-10.5); GFR NON-AFRICAN AMERICAN > 60
[2018-08-18] MEDS: SACUBITRIL 24mg/VALSARTAN 26mg tab PO SCH ×2 (10:22→21:31)
--- NOTE | 2018-08-18 15:15 | PN ---
DATE: 08/18/2018 SUBJECTIVE: The patient is in bed, in no acute distress, nontoxic. PHYSICAL EXAMINATION: VITAL SIGNS: Temperature is 97, blood pressure is 101/60, respiratory rate of 18. HEENT: Unremarkable. NECK: Supple. LUNGS: Have decreased breath sounds. HEART: Normal S1, S2. ABDOMEN: Soft, nontender. EXTREMITIES: Examination of leg is much improved. LABORATORY DATA: White count of 7.5, hemoglobin of 13. BUN of 14, creatinine of 0.6. Urinalysis is noted. Microbiology reveals the blood cultures are negative. Urine random cultures no growth. ASSESSMENT AND PLAN: This is a 63-year-old male with past medical history significant for coronary artery disease, chronic back pain, coronary artery bypass graft, tobacco use and alcohol use and admitted with diagnosis of congestive heart failure and left leg abrasions with no evidence of cellulitis, no evidence of infection and the patient was also admitted with acute systolic congestive heart failure on top of chronic congestive heart failure. Currently off of antibiotics, afebrile. The patient is at risk for developing nosocomial infections. Kip Perla MD
--- NOTE | 2018-08-18 16:12 | PN ---
DATE: 08/18/2018 SUBJECTIVE: The patient was seen lying in bed on 5R. He is comfortable at the present time. His edema has improved. He is anxious to get out and ambulate. He denies any dyspnea at rest. His current medications include Aldactone 25 mg b.i.d., aspirin, bacitracin, Entresto 24/26 mg b.i.d., Lasix 40 mg IV every 12 hours, metoprolol 25 mg b.i.d., Nicoderm patch and Zestril 2.5 mg daily. OBJECTIVE: GENERAL: He is a middle-aged man who appears comfortable at rest. VITAL SIGNS: His blood pressure is 100/66 with pulse of 62, respirations are 14. He is afebrile. HEENT: No JVD. CHEST: Few scattered rhonchi. HEART: PMI displaced laterally. Soft tones noted. ABDOMEN: Soft, nontender with normoactive bowel sounds. EXTREMITIES: 1+ edema to the knees. DIAGNOSTIC DATA: Potassium 3.9. BUN and creatinine are 14 and 0.6. White count 7.5, hemoglobin and hematocrit 13.6 and 42.7 with a platelet count of 112,000. IMPRESSION: 1. Decompensated congestive heart failure, acute on chronic, predominantly systolic, predominantly right sided. 2. Coronary artery disease, status post remote bypass surgery. 3. Tobacco abuse. 4. Severe mitral regurgitation. 5. Moderate tricuspid regurgitation. 6. Left leg wound, improved. RECOMMENDATIONS: IV diuretics will be continued for now. The rest of the medications will continue unchanged for now. Smoking abstinence was encouraged. Sodium and fluid restriction will continue. Compression stockings on lower extremities is advised as well. We will follow along as needed. Joss Hayes MD
--- NOTE | 2018-08-18 21:00 | PN ---
DATE: 08/18/2018 SUBJECTIVE: The patient has no complaints of any chest pain. No shortness of breath or headache. PHYSICAL EXAMINATION: VITAL SIGNS: Temperature 98.9, pulse 57, blood pressure 100/68, and respirations 18. GENERAL: The patient is lying in bed, flat, comfortable. HEENT: No oral lesion. Anicteric sclerae. Moist mucosa. NECK: No JVD, adenopathy, or thyromegaly. CARDIOVASCULAR: S1 and S2, regular. No murmurs, rubs, or gallops. LUNGS: Clear to auscultation bilaterally. No wheeze, rales, or rhonchi. ABDOMEN: Bowel sounds are positive, soft, nontender and nondistended. EXTREMITIES: no cyanosis, clubbing or edema. LABORATORY DATA: White count of 7.5, hemoglobin of 13.6, platelet count is 112. Creatinine is 0.6. ASSESSMENT: 1. Left leg cellulitis, resolved. 2. Coronary artery disease, status post coronary artery bypass graft. 3. Left forehead abrasion, resolved. 4. Congestive heart failure secondary to systolic dysfunction with ejection fraction of 25%. 5. Anemia. 6. Thrombocytopenia. 7. Chronic low back pain, on narcotics secondary to L5-S1 disc herniation. 8. Tobacco use. PLAN: The patient is currently on Aldactone for his cardiomyopathy. This will be continued. The patient is receiving Lasix daily. The patient is on a nicotine patch. He is on metoprolol for his cardiomyopathy. The patient is on lisinopril for his hypertension. The patient is on a heart-healthy diet. I appreciate the input from ID and Cardiology. Antonio Fontenot MD
[2018-08-19] MEDS: oxyCODONE 30 mg Immediate Release Tab PO PRN ×2 (01:28→07:45)
[2018-08-19] MEDS: Bacitracin 500 Units/gm Oint Foilpak UD TOP SCH (05:20)
[2018-08-19 08:41] VITALS: RESP 19; TEMP 97.8; O2SAT 99
--- NOTE | 2018-08-19 09:49 | CP.PCM.PN ---
Subjective - Date & Time of Evaluation Date of Evaluation: 08/19/18 Time of Evaluation: 09:49 Objective - Vital Signs/Intake and Output Vital Signs (last 24 hours): Temp Pulse Resp BP Pulse Ox 97.8 F 61 19 109/77 99 08/19/18 06:00 08/19/18 06:00 08/19/18 06:00 08/19/18 06:00 08/19/18 06:00 - Medications Medications: Current Medications Aspirin (Aspirin Chewable) 81 mg PO DAILY [facility] Last Admin: 08/18/18 10:17 Dose: 81 mg Bacitracin (Bacitracin) 1 ea TOP Q12H [facility] Last Admin: 08/19/18 05:20 Dose: Not Given Furosemide (Lasix) 40 mg IVP Q12H [facility] Last Admin: 08/19/18 05:20 Dose: Not Given Lisinopril (Zestril) 2.5 mg PO DAILY [facility] Last Admin: 08/18/18 10:22 Dose: 2.5 mg Metoprolol Tartrate (Lopressor) 25 mg PO BID [facility] Last Admin: 08/18/18 17:38 Dose: Not Given Nicotine (Nicoderm Cq) 1 patch TD DAILY [facility] Last Admin: 08/18/18 10:17 Dose: 1 patch Oxycodone HCl (Oxycodone Immediate Release Tab) 30 mg PO 5XD PRN PRN Reason: Pain, moderate (4-7) Last Admin: 08/19/18 07:45 Dose: 30 mg Sacubitril/Valsartan (Entresto 24 Mg-26 Mg Tablet) 1 each PO Q12 [facility] Last Admin: 08/18/18 21:31 Dose: Not Given Spironolactone (Aldactone) 25 mg PO BID [facility] Last Admin: 08/18/18 17:37 Dose: 25 mg - Labs Labs: 08/18/18 06:25 08/18/18 06:25 PT 15.1 SECONDS (9.4-12.5) H 08/16/18 13:20 INR 1.34 08/16/18 13:20 APTT 32.4 Seconds (26.9-38.3) 08/16/18 13:20
--- NOTE | 2018-08-19 10:06 | CP.PCM.DIS ---
<Silva Nathan - Last Filed: 08/19/18 18:20> Provider - Provider Date of Admission: 08/16/18 14:13 Attending physician: Antonio Fontenot MD Consults: 08/16/18 15:28 Cardiology Consult Routine Comment: Consulting Provider: Joss Hayes Consulting Physician: Joss Hayes Reason for Consult: t-wave inverions; increased LE edema 08/16/18 18:37 Respiratory Therapy Referral Routine Comment: smokes 1 cig every couple days/trying to quit Physician Instructions: Reason For Exam: assess 08/17/18 08:02 Consult [Physician Consult] Routine Comment: Consulting Provider: Kip Perla Consulting Physician: Kip Perla Reason for Consult: cellulitis Time Spent in preparation of Discharge (in minutes): 60 Diagnosis - Discharge Diagnosis (1) CHF (congestive heart failure) Status: Acute (2) Cellulitis Status: Acute (3) Elevated brain natriuretic peptide (BNP) level Status: Acute Hospital Course - Lab Results Lab Results: Micro Results 08/16/18 15:12 Blood-Venous Blood Culture - Preliminary NO GROWTH AFTER 48 HOURS 08/16/18 13:20 Blood-Venous Blood Culture - Preliminary NO GROWTH AFTER 48 HOURS 08/16/18 13:47 Urine Random Urine Culture - Final No Growth (<1,000 CFU/ML) Most Recent Lab Values WBC 7.5 10^3/uL (4.5-11.0) 08/18/18 06:25 RBC 4.62 10^6/uL (3.5-6.1) 08/18/18 06:25 Hgb 13.6 g/dL (14.0-18.0) L 08/18/18 06:25 Hct 42.7 % (42.0-52.0) 08/18/18 06:25 MCV 92.4 fl (80.0-105.0) 08/18/18 06:25 MCH 29.4 pg (25.0-35.0) 08/18/18 06:25 MCHC 31.9 g/dl (31.0-37.0) 08/18/18 06:25 RDW 17.1 % (11.5-14.5) H 08/18/18 06:25 Plt Count 112 10^3/uL (120.0-450.0) L 08/18/18 06:25 MPV 12.7 fl (7.0-11.0) H 08/18/18 06:25 Neut % (Auto) 52.3 % (50.0-68.0) 08/18/18 06:25 Lymph % (Auto) 32.4 % (22.0-35.0) 08/18/18 06:25 Ralls % (Auto) 8.1 % (1.0-6.0) H 08/18/18 06:25 Eos % (Auto) 6.9 % (1.5-5.0) H 08/18/18 06:25 Baso % (Auto) 0.3 % (0.0-3.0) 08/18/18 06:25 Lymph # (Auto) 2.4 (1.2-3.4) 08/18/18 06:25 Ralls # (Auto) 0.6 (0.1-0.6) 08/18/18 06:25 Eos # (Auto) 0.5 (0.0-0.7) 08/18/18 06:25 Baso # (Auto) 0.02 K/mm3 (0.0-2.0) 08/18/18 06:25 Absolute Neuts (auto) 3.95 (1.4-6.5) 08/18/18 06:25 PT 15.1 SECONDS (9.4-12.5) H 08/16/18 13:20 INR 1.34 08/16/18 13:20 APTT 32.4 Seconds (26.9-38.3) 08/16/18 13:20 D-Dimer, Quantitative 784 ng/mlDDU (0-243) H 08/16/18 15:09 Sodium 140 mmol/L (132-148) 08/18/18 06:25 Potassium 3.9 mmol/L (3.6-5.0) 08/18/18 06:25 Chloride 103 mmol/L (98-107) 08/18/18 06:25 Carbon Dioxide 33 mmol/L (21-33) 08/18/18 06:25 Anion Gap 8 (10-20) L 08/18/18 06:25 BUN 14 mg/dL (7-21) 08/18/18 06:25 Creatinine 0.6 mg/dl (0.8-1.5) L 08/18/18 06:25 Est GFR ( Amer) > 60 08/18/18 06:25 Est GFR (Non-Af Amer) > 60 08/18/18 06:25 Random Glucose 86 mg/dL (70-110) 08/18/18 06:25 Calcium 8.8 mg/dL (8.4-10.5) 08/18/18 06:25 Magnesium 1.8 mg/dL (1.7-2.2) 08/17/18 06:00 Iron 55 ug/dL (45-180) 08/16/18 17:30 TIBC 342 ug/dL (261-462) 08/16/18 17:30 % Saturation 16 % (20-55) L 08/16/18 17:30 Ferritin 63.7 ng/mL 08/16/18 17:30 Total Bilirubin 1.0 mg/dL (0.2-1.3) 08/18/18 06:25 AST 33 U/L (17-59) 08/18/18 06:25 ALT 27 U/L (7-56) 08/18/18 06:25 Alkaline Phosphatase 76 U/L (38-126) 08/18/18 06:25 Troponin I < 0.01 ng/mL 08/16/18 23:20 NT-Pro-B Natriuret Pep 7970 pg/mL (0-450) H 08/16/18 13:20 Total Protein 6.7 g/dL (5.8-8.3) 08/18/18 06:25 Albumin 3.4 g/dL (3.0-4.8) 08/18/18 06:25 Globulin 3.4 gm/dL 08/18/18 06:25 Albumin/Globulin Ratio 1.0 (1.1-1.8) L 08/18/18 06:25 Triglycerides 89 mg/dL (35-160) 08/17/18 06:00 Cholesterol 131 mg/dL (130-200) 08/17/18 06:00 LDL Cholesterol Direct 79 mg/dL (0-129) 08/17/18 06:00 HDL Cholesterol 37 mg/dL (29-60) 08/17/18 06:00 Urine Color Yellow (YELLOW) 08/16/18 13:47 Urine Appearance Clear (CLEAR) 08/16/18 13:47 Urine pH 6.0 (4.7-8.0) 08/16/18 13:47 Ur Specific [place] 1.025 (1.005-1.035) 08/16/18 13:47 Urine Protein Negative mg/dL (<30 mg/dL) 08/16/18 13:47 Urine Glucose (UA) Negative mg/dL (NEGATIVE) 08/16/18 13:47 Urine Ketones Negative mg/dL (NEGATIVE) 08/16/18 13:47 Urine Blood Negative (NEGATIVE) 08/16/18 13:47 Urine Nitrate Negative (NEGATIVE) 08/16/18 13:47 Urine Bilirubin Negative (NEGATIVE) 08/16/18 13:47 Urine Urobilinogen 2.0 E.U./dL (<1 E.U./dL) H 08/16/18 13:47 Ur Leukocyte Esterase Negative Michelle/uL (NEGATIVE) 08/16/18 13:47 Blood Type O POSITIVE 08/16/18 13:20 Blood Type Confirm O POSITIVE 08/16/18 13:45 Antibody Screen Negative 08/16/18 13:20 BBK History Checked No verified bt 08/16/18 13:20 - Hospital Course Hospital Course: This is a 63 year old male with a PMHx of CAD s/p CABG, systolic CHF, chronic low back pain 2/2 disc degeneration, who presents to our ED for worsening b/l LE swelling and left lateral lower leg skin changes. Patient called his PMD Dr Unger who advised him to come to the ER. Patient was admitted for lower leg cellulitis, which resolved with antibiotics. ID was consulted, input appreciated. Patient also had an exacerbation of his CHF, was given diuretics. Patient also had a left forehead abrasion, head CT negative for bleed. Patient was ambulating well in the hallway today, steady gait. Patient discharged home with all home medications written on a script, except for Oxycodone (which patient will obtain from his PMD Dr Unger). Case discussed with Dr Fontenot. Discharge Exam - Additional Findings Additional findings: - Constitutional Appears: Well, Non-toxic, No Acute Distress - Head Exam Head Exam: left forehead small healing abrasion. - Eye Exam Eye Exam: EOMI, Normal appearance, PERRL. absent: Scleral icterus - ENT Exam ENT Exam: Mucous Membranes Moist - Neck Exam Neck exam: Positive for: Normal Inspection - Respiratory Exam Respiratory Exam: Clear to Auscultation Bilateral, NORMAL BREATHING PATTERN. absent: Rales, Rhonchi, Wheezes - Cardiovascular Exam Cardiovascular Exam: REGULAR RHYTHM, JVD, +S1, +S2. absent: Tachycardia, Systolic Murmur - GI/Abdominal Exam GI & Abdominal Exam: Normal Bowel Sounds, Soft. absent: Distended, Firm, Guarding, Tenderness - Extremities Exam Extremities exam: Positive for: normal capillary refill, pedal edema, pedal pulses present. Negative for: tenderness - Neurological Exam Neurological exam: Alert, Oriented x3 - Psychiatric Exam Psychiatric exam: Normal Affect, Normal Mood - Skin Skin Exam: Dry, Intact, Warm Discharge Plan - Discharge Medications Prescriptions: RX: Spironolactone [Aldactone] 25 mg PO BID #60 tab RX: Aspirin [Aspirin Chewable] 81 mg PO DAILY #30 chew RX: Sacubitril/Valsartan [Entresto 24 mg-26 mg Tablet] 1 each PO Q12 #60 tablet RX: Furosemide [Lasix] 40 mg PO BID #60 tablet RX: Metoprolol Tartrate [Lopressor] 25 mg PO BID #60 tab RX: Phosphorus/Potassium/Sodium [Neutra-Phos] 1 pkt PO TID #45 packet RX: Lisinopril [Zestril] 2.5 mg PO DAILY #30 tab - Follow Up Plan Condition: FAIR Disposition: HOME/ ROUTINE Instructions: Heart Healthy Diet, Heart Failure, Adult (DC), Cellulitis (Skin Infection), Adult (DC), B-Type Natriuretic Peptide Blood Test, Heart Failure (DC), Heart Failure (GEN), Pacemaker (DC), Pacemaker (GEN), Pulmonary Edema (DC), Pulmonary Edema (GEN), Cellulitis (DC), Cellulitis (GEN), Ascites (DC), Ascites (GEN) Additional Instructions: Follow up with PMD Dr Unger in 1 week. Take medications as directed. Return to the emergency room for any worsening of symptoms. <Antonio Fontenot - Last Filed: 08/19/18 21:05> Provider - Provider Date of Admission: 08/16/18 14:13 Attending physician: Antonio Fontenot MD Consults: 08/16/18 15:28 Cardiology Consult Routine Comment: Consulting Provider: Joss Hayes Consulting Physician: Joss Hayes Reason for Consult: t-wave inverions; increased LE edema 08/16/18 18:37 Respiratory Therapy Referral Routine Comment: smokes 1 cig every couple days/trying to quit Physician Instructions: Reason For Exam: assess 08/17/18 08:02 Consult [Physician Consult] Routine Comment: Consulting Provider: Kip Perla Consulting Physician: Kip Perla Reason for Consult: cellulitis Hospital Course - Lab Results Lab Results: Micro Results 08/16/18 15:12 Blood-Venous Blood Culture - Preliminary NO GROWTH AFTER 3 DAYS 08/16/18 13:20 Blood-Venous Blood Culture - Preliminary NO GROWTH AFTER 3 DAYS 08/16/18 13:47 Urine Random Urine Culture - Final No Growth (<1,000 CFU/ML) Most Recent Lab Values WBC 7.5 10^3/uL (4.5-11.0) 08/18/18 06:25 RBC 4.62 10^6/uL (3.5-6.1) 08/18/18 06:25 Hgb 13.6 g/dL (14.0-18.0) L 08/18/18 06:25 Hct 42.7 % (42.0-52.0) 08/18/18 06:25 MCV 92.4 fl (80.0-105.0) 08/18/18 06:25 MCH 29.4 pg (25.0-35.0) 08/18/18 06:25 MCHC 31.9 g/dl (31.0-37.0) 08/18/18 06:25 RDW 17.1 % (11.5-14.5) H 08/18/18 06:25 Plt Count 112 10^3/uL (120.0-450.0) L 08/18/18 06:25 MPV 12.7 fl (7.0-11.0) H 08/18/18 06:25 Neut % (Auto) 52.3 % (50.0-68.0) 08/18/18 06:25 Lymph % (Auto) 32.4 % (22.0-35.0) 08/18/18 06:25 Ralls % (Auto) 8.1 % (1.0-6.0) H 08/18/18 06:25 Eos % (Auto) 6.9 % (1.5-5.0) H 08/18/18 06:25 Baso % (Auto) 0.3 % (0.0-3.0) 08/18/18 06:25 Lymph # (Auto) 2.4 (1.2-3.4) 08/18/18 06:25 Ralls # (Auto) 0.6 (0.1-0.6) 08/18/18 06:25 Eos # (Auto) 0.5 (0.0-0.7) 08/18/18 06:25 Baso # (Auto) 0.02 K/mm3 (0.0-2.0) 08/18/18 06:25 Absolute Neuts (auto) 3.95 (1.4-6.5) 08/18/18 06:25 PT 15.1 SECONDS (9.4-12.5) H 08/16/18 13:20 INR 1.34 08/16/18 13:20 APTT 32.4 Seconds (26.9-38.3) 08/16/18 13:20 D-Dimer, Quantitative 784 ng/mlDDU (0-243) H 08/16/18 15:09 Sodium 140 mmol/L (132-148) 08/18/18 06:25 Potassium 3.9 mmol/L (3.6-5.0) 08/18/18 06:25 Chloride 103 mmol/L (98-107) 08/18/18 06:25 Carbon Dioxide 33 mmol/L (21-33) 08/18/18 06:25 Anion Gap 8 (10-20) L 08/18/18 06:25 BUN 14 mg/dL (7-21) 08/18/18 06:25 Creatinine 0.6 mg/dl (0.8-1.5) L 08/18/18 06:25 Est GFR ( Amer) > 60 08/18/18 06:25 Est GFR (Non-Af Amer) > 60 08/18/18 06:25 Random Glucose 86 mg/dL (70-110) 08/18/18 06:25 Calcium 8.8 mg/dL (8.4-10.5) 08/18/18 06:25 Magnesium 1.8 mg/dL (1.7-2.2) 08/17/18 06:00 Iron 55 ug/dL (45-180) 08/16/18 17:30 TIBC 342 ug/dL (261-462) 08/16/18 17:30 % Saturation 16 % (20-55) L 08/16/18 17:30 Ferritin 63.7 ng/mL 08/16/18 17:30 Total Bilirubin 1.0 mg/dL (0.2-1.3) 08/18/18 06:25 AST 33 U/L (17-59) 08/18/18 06:25 ALT 27 U/L (7-56) 08/18/18 06:25 Alkaline Phosphatase 76 U/L (38-126) 08/18/18 06:25 Troponin I < 0.01 ng/mL 08/16/18 23:20 NT-Pro-B Natriuret Pep 7970 pg/mL (0-450) H 08/16/18 13:20 Total Protein 6.7 g/dL (5.8-8.3) 08/18/18 06:25 Albumin 3.4 g/dL (3.0-4.8) 08/18/18 06:25 Globulin 3.4 gm/dL 08/18/18 06:25 Albumin/Globulin Ratio 1.0 (1.1-1.8) L 08/18/18 06:25 Triglycerides 89 mg/dL (35-160) 08/17/18 06:00 Cholesterol 131 mg/dL (130-200) 08/17/18 06:00 LDL Cholesterol Direct 79 mg/dL (0-129) 08/17/18 06:00 HDL Cholesterol 37 mg/dL (29-60) 08/17/18 06:00 Urine Color Yellow (YELLOW) 08/16/18 13:47 Urine Appearance Clear (CLEAR) 08/16/18 13:47 Urine pH 6.0 (4.7-8.0) 08/16/18 13:47 Ur Specific [place] 1.025 (1.005-1.035) 08/16/18 13:47 Urine Protein Negative mg/dL (<30 mg/dL) 08/16/18 13:47 Urine Glucose (UA) Negative mg/dL (NEGATIVE) 08/16/18 13:47 Urine Ketones Negative mg/dL (NEGATIVE) 08/16/18 13:47 Urine Blood Negative (NEGATIVE) 08/16/18 13:47 Urine Nitrate Negative (NEGATIVE) 08/16/18 13:47 Urine Bilirubin Negative (NEGATIVE) 08/16/18 13:47 Urine Urobilinogen 2.0 E.U./dL (<1 E.U./dL) H 08/16/18 13:47 Ur Leukocyte Esterase Negative Michelle/uL (NEGATIVE) 08/16/18 13:47 Blood Type O POSITIVE 08/16/18 13:20 Blood Type Confirm O POSITIVE 08/16/18 13:45 Antibody Screen Negative 08/16/18 13:20 BBK History Checked No verified bt 08/16/18 13:20 - Hospital Course Hospital Course: Pt seen and examined by me. I have reviewed the note of the medical claims assistant and I agree with it. I have discussed the assessment and plan with the resident. I have reviewed the medications and the last labs.
[2018-08-19] MEDS: SACUBITRIL 24mg/VALSARTAN 26mg tab PO SCH (10:36)
[2018-08-19 10:41] VITALS: BP 95/59; PULSE 72
--- NOTE | 2018-08-19 19:52 | PN ---
DATE: 08/19/2018 SUBJECTIVE: Patient was seen lying in bed on 5R. He does have some peripheral edema. He is reluctant to go home. He is concerned that he will have worsening of his edema and require readmission. CURRENT MEDICATIONS: Include Aldactone 25 mg b.i.d., aspirin once daily, Entresto 24/26 mg b.i.d., Lasix 40 mg IV b.i.d, metoprolol 25 mg b.i.d., Nicoderm patch, oxycodone, and Zestril 2.5 mg daily. OBJECTIVE: GENERAL: He is a middle aged man appears comfortable at rest. VITAL SIGNS: Blood pressure 110/76,pulse is 72 and regular, respirations are 16. He is afebrile. HEENT: No JVD. CHEST: A few scattered rhonchi heard. HEART: PMI is displaced laterally. Soft tones are noted. ABDOMEN: Soft, nontender with normoactive bowel sounds. EXTREMITIES: 1+ bilateral leg edema noted. DIAGNOSTIC DATA: Morning blood work pending. IMPRESSION: 1. Decompensated congestive heart failure, acute on chronic, predominantly systolic, right side greater than left, clinically improved. 2. Coronary artery disease status post prior bypass surgery. 3. History of tobacco abuse. 4. Severe mitral regurgitation. 4. Moderate tricuspid regurgitation. RECOMMENDATIONS: Lasix can be switched to oral administration at this time. The need for sodium and fluid restriction was reviewed in detail with him. The use of compression stockings to avert recurrence of peripheral edema was discussed as well. Leg elevation when seated was advised. Close outpatient followup will be arranged. Joss Hayes MD
--- NOTE | 2018-08-20 00:18 | DS ---
HOSPITAL COURSE: The patient was seen and examined by me. I did review the note of the director biomedical engineering and I do agree with it. I have discussed the assessment and plan with the resident. The patient came in because of left leg cellulitis that has improved with antibiotics. The patient states that he is on OxyContin and oxycodone. He was not able to bring in proof that he had OxyContin, but did bring in oxycodone. The patient has stated that he has a sister that calls to get update information. The case management social worker Amalia had indicated to me that this is not a family member. The patient is deceitful at times. He stated that Dr. Hayes said he will go home tomorrow. I spoke with Dr. Hayes and he said he did not say this to the patient, but instead said he would go home today. The patient continues to actively smoke. He does have lower extremity edema, but it is very mild. He does have a history of coronary artery disease with CABG. He has chronic back pain because of DJD. He is going to be discharged home. I did speak to the patient's to give an update. She was advised to follow up with Dr. Unger or Dr. Hayes. The patient did not wish to leave the hospital today. He is not on any IV antibiotics at this point. He was advised to follow with Dr. Unger. CONDITION: Stable. ACTIVITIES: Increase as tolerated. Antonio Fontenot MD
== END 2018-08-19 13:34 | disposition home or self-care (01) | DRG 292 ==
LOC: ED 12:25 → ERH 14:13 → 2RNO 18:41 → 5RSO 08-17 09:49
PROVIDERS: ADMIT Internal Medicine Nephrology; ATTEND Internal Medicine Nephrology
DX: I11.0 Hypertensive heart disease with heart failure (principal); L03.116 Cellulitis of left lower limb; I50.23 Acute on chronic systolic (congestive) heart failure; I42.9 Cardiomyopathy, unspecified; D64.9 Anemia, unspecified; D69.6 Thrombocytopenia, unspecified; F17.210 Nicotine dependence, cigarettes, uncomplicated; F32.89 Other specified depressive episodes; F41.9 Anxiety disorder, unspecified; G89.29 Other chronic pain; I08.1 Rheumatic disorders of both mitral and tricuspid valves; I25.10 Atherosclerotic heart disease of native coronary artery without angina pectoris; M19.90 Unspecified osteoarthritis, unspecified site; M51.27 Other intervertebral disc displacement, lumbosacral region; S00.81XA Abrasion of other part of head, initial encounter; S81.812A Laceration without foreign body, left lower leg, initial encounter; Y93.01 Activity, walking, marching and hiking; Z79.82 Long term (current) use of aspirin; Z79.891 Long term (current) use of opiate analgesic; Z79.899 Other long term (current) drug therapy; Z95.1 Presence of aortocoronary bypass graft